=== PATIENT | female | born 1980 | race Caucasian/White ===

== ENCOUNTER 2019-12-09 11:36 | Emergency (ER) | payer BC, SELFPAY ==
[2019-12-09 11:47] VITALS: BP 140/92; PULSE 119; RESP 19; TEMP 37.6; O2SAT 99; BMI 34.0
--- NOTE | 2019-12-09 11:48 | XR_ITS ---
WS: [id number] PORTABLE CHEST HISTORY: cough COMPARISON: None available. Lungs are clear and well expanded. No pleural effusion or pneumothorax. Cardiac size: Normal. Mediastinum/Aorta: Normal mediastinum. No osseous abnormality seen. XR/XR chest 1V portable [id number] IMPRESSION: Unremarkable portable chest.
--- NOTE | 2019-12-09 11:48 | ECG_ITS ---
Measurements Intervals [place] Rate: 110 P: 44 [place]: 132 QRS: 43 QRSD: 94 T: 21 QT: 307 QTc: 417 SINUS TACHYCARDIA NONSPECIFIC T-WAVE ABNORMALITY ABNORMAL RHYTHM ECG No previous ECG available for comparison Electronically Signed On 12-09-2019 19:06:47 CDT by Brandie Boyce M.D. [id number]
[2019-12-09 12:06] LABS: Basophils % 0.6 %; Eosinophils # 0.2 10^3/uL (0.0-0.8); Eosinophils % 3.4 %; Hematocrit 49.2 % (37.0-47.0); Hemoglobin 15.8 g/dL (11.5-15.3); Lymphocytes # 1.8 10^3/uL (0.8-4.8); Lymphocytes % 28.6 %; Mean Corpuscular HGB Conc 32.1 g/dL (30.0-36.0); Mean Corpuscular Hemoglobin 28.6 pg (28.0-34.0); Mean Corpuscular Volume 89.1 fL (81-99); Mean Platelet Volume 9.7 fL (7.4-10.4); Monocytes # 0.3 10^3/uL (0.2-0.9); Neutrophils # 3.8 10^3/uL (1.8-7.7); Neutrophils % 62.1 %; Nucleated Red Blood Cells % 0 %; Platelet Count 253 10^3/cmm (130-400); Red Blood Count 5.52 10^6/uL (4.1-5.3); Red Cell Distribution Width 13.5 % (12.1-15.1); White Blood Count 6.2 10^3/uL (4.0-10.0)
--- NOTE | 2019-12-09 12:06 | ED_ITS ---
HPI - Chest Pain General: Chief Complaint: Chest Pain Stated Complaint: CHEST PRESSURE, LOW BP Time Seen by Provider: 12/09/19 11:47 History of Present Illness: HPI narrative: Emily is a very nice 39-year-old female who comes in complaining of chest pressure. She has had the symptoms off and on for the past several days. In total she states she is been symptomatic for about 2 weeks. At times her heart rate will be elevated at times it will be slower. She describes the pressure as mild and radiates to her left arm. She has associated shortness of breath. She otherwise denies any complaints. She is unaware of anything that makes her symptoms better or worse. Associated symptoms: Reports dyspnea; Deny abdominal pain, diaphoresis, fever(s), palpitations, syncope or vomiting Review of Systems General: Reports: other (negative unless marked) Const: Denies: fever, chills, body aches, fatigue, malaise or diaphoresis Eyes: Denies: change in vision or blurry vision ENMT: Denies: throat pain, painful swallowing, hoarseness, ear pain, ear discharge, Change in hearing or nasal discharge Card: Reports: chest pain; Denies: palpitations, irregular heart rhythm, syncope, pre-syncope, shortness of breath on exertion or shortness of breath when lying down Resp: Reports: shortness of breath; Denies: productive cough, non-productive cough, wheezing, coughing up blood or chest congestion GI: Denies: abdominal pain, vomiting, vomiting blood, coffee grounds in vomit, diarrhea, constipation, cramping, blood in stool or black tarry stool : Denies: flank pain, painful urination, urinary frequency, urinary urgency, decreased urine ouput, urinary incontinence or blood in urine Musc: Denies: neck pain, back pain, extremity pain, extremity swelling, joint pain, joint swelling, joint warmth or joint stiffness Skin/Breast: Denies: rash, skin tenderness or yellow skin Neuro: Denies: headache, numbness in extremities, weakness in extremities, changes in sensation, lack of coordination, difficulty walking, dizziness, vertigo or confusion Endo: Denies: excessive thirst, tired all the time, cold intolerance, excessive sweating, flushing or hot flashes Adryan/Lymph: Denies: easy bruising, easy bleeding, petechiae or enlarged lymph nodes All/Imm: Denies: hives, throat swelling, tongue swelling, facial swelling or acute wheezing PFSH ED PFSH: Medical History (Updated 12/09/19 @ 12:12 by Flaca Baker) Anxiety Depression Surgical History (Updated 12/09/19 @ 12:12 by Flaca Baker) H/O lumpectomy History of cholecystectomy Tubal ligation status Social History Smoking and tobacco status: former smoker Physical Exam Const: COMMON NORMALS: no apparent distress, oriented x3, no limitations, healthy appearing and well nourished EXAM LIMITATIONS: no altered mental status GENERAL APPEARANCE: cooperative, well kempt and well developed ORIENTATION/CONSCIOUSNESS: Yes awake HENMT: COMMON NORMALS: normocephalic, head/scalp atraumatic, hearing grossly normal bilaterally, external ears normal, EAC's normal, external nose normal and moist oral mucous membranes HEAD & SCALP: normal to inspection, normocephalic and atraumatic FACE & SINUS: normal facial exam and face symmetric NOSE: external nose normal and nares normal EXTERNAL EAR: Yes external ears normal EXTERNAL AUDITORY CANAL: EAC's normal MOUTH: oral and palatal mucosa normal and tongue normal Eye: COMMON NORMALS: PERRL, EOMs intact bilaterally, conjunctivae normal and no scleral icterus GENERAL EYE: normal appearance of both eyes and normal light reflex CONJUNCTIVA: Yes conjunctivae normal SCLERA: sclerae normal CORNEA: Yes corneas normal PUPIL: Yes PERRL DIRECT OPHTHALMOSCOPY: Yes normal light reflex Neck/C-Spine: COMMON NORMALS: full ROM, no lymphadenopathy, supple, no meningeal signs and no JVD GENERAL: Yes normal visual inspection and Yes trachea midline CERVICAL SPINE: Yes cervical ROM normal Chest: COMMONS NORMALS: inspection of chest normal and palpation of chest normal Resp: COMMON NORMALS: normal respiratory effort, no retractions, no use of accessory muscles and clear to auscultation bilaterally EFFORT & INSPECTION: Yes able to speak in complete sentences AUSCULTATION: clear to auscultation bilaterally Cardio: COMMON NORMALS: no JVD, regular rate, regular rhythm, S1 normal heart sound, S2 normal heart sound, no gallops, no clicks, no murmurs and no rub JUGULAR VENOUS DISTENTION: no JVD RATE: regular rate RHYTHM: regular rhythm HEART SOUNDS: S1 normal and S2 normal GI: COMMON NORMALS: soft to palpation, non-tender, no hepatosplenomegaly and no masses INSPECTION: Yes normal to inspection PALPATION: Yes soft and Yes no hepatosplenomegaly : COMMON NORMALS: Yes no CVA tenderness BLADDER/KIDNEY EXAM: Yes no CVA tenderness Back/Pelvis: COMMON NORMALS: no CVA tenderness, thoracic and lumbar spine normal to inspection, no thoracic nor lumbar tenderness and thoraco-lumbar ROM normal Extremity: COMMON NORMALS: normal to inspection, full ROM, normal capillary refill, no joint enlargement, no clubbing, cyanosis or edema and no calf tenderness Neuro: COMMON NORMALS: oriented x3, CN's II-XII intact bilaterally, moves all extremities, no focal motor deficits and no sensory deficits noted MENINGEAL SIGNS: Yes no meningeal signs Psych: COMMON NORMALS: mental status grossly normal, thought process normal, cooperative, affect normal, speech normal and activity/motor behavior normal APPEARANCE: Yes well kempt SPEECH: Yes normal speech THOUGHT PROCESS: normal thought process Skin: COMMON NORMALS: no rashes or lesions noted, skin turgor normal, no jaundice, no petechiae and no mottling GENERAL SKIN EXAM: no rashes or lesions noted and turgor normal Course Vital Signs: Vital signs: Vital Signs Temperature 99.7 F H 12/09/19 11:47 Pulse Rate 119 H 12/09/19 11:47 Respiratory Rate 19 H 12/09/19 11:47 Blood Pressure 140/92 12/09/19 11:47 Pulse Oximetry 99 12/09/19 11:47 MDM - Chest Pain MDM Narrative: Medical decision making narrative: Emily is a very nice 39-year-old female who comes in complaining of a pressure-like chest pain in the lower part of her chest. On thorough review the patient has bilateral lower lobe subsegmental pulmonary emboli. Her cardiac enzymes are negative x2, her BNP is normal and her echo shows no right heart strain. She only has mild tachycardia at this point in the 100s but predominantly in the 90s. I discussed the case in full with Dr. Jefferson and he agrees the patient can be discharged to follow-up with him. She will receive a dose of Lovenox here and then start Eliquis tomorrow morning. Her is a branch specialist here who understands what needs to happen with this. He will start the medication 12 hours after her Lovenox dose. Lab Data: Attestation: I reviewed the patient's lab results. Labs: Lab Results 12/09/19 12/09/19 12/09/19 Range/Units 11:58 11:58 11:58 WBC 6.2 (4.0-10.0) 10^3/ uL RBC 5.52 H (4.1-5.3) 10^6/u L Hgb 15.8 H (11.5-15.3) g/dL Hct 49.2 H (37.0-47.0) % MCV 89.1 (81-99) fL MCH 28.6 (28.0-34.0) pg MCHC 32.1 (30.0-36.0) g/dL RDW 13.5 (12.1-15.1) % Plt Count 253 (130-400) 10^3/c mm MPV 9.7 (7.4-10.4) fL Neut % (Auto) 62.1 % Lymph % (Auto) 28.6 % [place] % (Auto) 5.0 % Eos % (Auto) 3.4 % Baso % (Auto) 0.6 % Neut # (Auto) 3.8 (1.8-7.7) 10^3/u L Lymph # (Auto) 1.8 (0.8-4.8) 10^3/u L [place] # (Auto) 0.3 (0.2-0.9) 10^3/u L Eos # (Auto) 0.2 (0.0-0.8) 10^3/u L Baso # (Auto) 0.0 (0.0-0.1) 10^3/u L Nucleated RBC % (a uto) 0 % Nucleated RBCs # 0.0 /100WBC PT 13.00 (10.5-13.3) SECO NDS INR 0.95 (0.8-1.2) D-Dimer 0.52 (0-0.59) ug/mIFE U Sodium 139 (136-145) mmol/L Potassium 3.8 (3.5-5.1) mmol/L Chloride 102 (98-107) mmol/L Carbon Dioxide 24 (22-29) mmol/L Anion Gap 16.8 (5-19) BUN 11 (6-20) mg/dL Creatinine 0.7 (0.5-0.9) mg/dL GFR Calculation 93.6 (90-130) mL/min Glucose 134 H (65-115) mg/dL Calculated Osmolal ity 286 (285-295) mOsm/k g Calcium 9.9 (8.5-10.5) mg/dL Magnesium 2.2 (1.7-2.3) mg/dL Total Bilirubin 0.4 (0.15-1.2) mg/dL AST 20 (0-32) U/L ALT 27 (0-33) U/L Alkaline Phosphata se 31 L (35-105) IU/L Troponin T Baselin e (0-10) ng/mL Troponin T 120 Min [place] (0-10) ng/mL Delta Troponin T (0-10) ABS# NT-Pro-B Natriuret Pep (0-125) pg/mL Total Protein 7.4 (6.6-8.7) g/dL Albumin 4.1 (3.5-5.2) g/dL Globulin 3.3 (1.3-4.6) g/dL Lipase 53 (13-60) U/L TSH (0.27-4.20) uIU/ mL HCG, Qual (Negative) Urine Color (Yellow) Urine Appearance (CLEAR) Urine pH (5-7) Ur Specific Gravit y (1.005-1.030) Urine Protein (Negative) Urine Glucose (UA) (Normal) Urine Ketones (Negative) Urine Blood (Negative) Urine Nitrate (Negative) Urine Bilirubin (NEGATIVE) Urine Urobilinogen (Negative) mg/dL Ur Leukocyte Shala ase (Negative) Urine RBC (0-2) /hpf Urine WBC (0-5) /hpf Ur Squamous Epith Cells (0-5) Amorphous Sediment Urine Bacteria (NONE) Ethyl Alcohol < 10 (0-10) mg/dL 12/09/19 12/09/19 12/09/19 Range/Units 11:58 11:58 11:58 WBC (4.0-10.0) 10^3/ uL RBC (4.1-5.3) 10^6/u L Hgb (11.5-15.3) g/dL Hct (37.0-47.0) % MCV (81-99) fL MCH (28.0-34.0) pg MCHC (30.0-36.0) g/dL RDW (12.1-15.1) % Plt Count (130-400) 10^3/c mm MPV (7.4-10.4) fL Neut % (Auto) % Lymph % (Auto) % [place] % (Auto) % Eos % (Auto) % Baso % (Auto) % Neut # (Auto) (1.8-7.7) 10^3/u L Lymph # (Auto) (0.8-4.8) 10^3/u L [place] # (Auto) (0.2-0.9) 10^3/u L Eos # (Auto) (0.0-0.8) 10^3/u L Baso # (Auto) (0.0-0.1) 10^3/u L Nucleated RBC % (a uto) % Nucleated RBCs # /100WBC PT (10.5-13.3) SECO NDS INR (0.8-1.2) D-Dimer (0-0.59) ug/mIFE U Sodium (136-145) mmol/L Potassium (3.5-5.1) mmol/L Chloride (98-107) mmol/L Carbon Dioxide (22-29) mmol/L Anion Gap (5-19) BUN (6-20) mg/dL Creatinine (0.5-0.9) mg/dL GFR Calculation (90-130) mL/min Glucose (65-115) mg/dL Calculated Osmolal ity (285-295) mOsm/k g Calcium (8.5-10.5) mg/dL Magnesium (1.7-2.3) mg/dL Total Bilirubin (0.15-1.2) mg/dL AST (0-32) U/L ALT (0-33) U/L Alkaline Phosphata se (35-105) IU/L Troponin T Baselin e 6 (0-10) ng/mL Troponin T 120 Min [place] (0-10) ng/mL Delta Troponin T (0-10) ABS# NT-Pro-B Natriuret Pep (0-125) pg/mL Total Protein (6.6-8.7) g/dL Albumin (3.5-5.2) g/dL Globulin (1.3-4.6) g/dL Lipase (13-60) U/L TSH 1.86 (0.27-4.20) uIU/ mL HCG, Qual Negative (Negative) Urine Color (Yellow) Urine Appearance (CLEAR) Urine pH (5-7) Ur Specific Gravit y (1.005-1.030) Urine Protein (Negative) Urine Glucose (UA) (Normal) Urine Ketones (Negative) Urine Blood (Negative) Urine Nitrate (Negative) Urine Bilirubin (NEGATIVE) Urine Urobilinogen (Negative) mg/dL Ur Leukocyte Shala ase (Negative) Urine RBC (0-2) /hpf Urine WBC (0-5) /hpf Ur Squamous Epith Cells (0-5) Amorphous Sediment Urine Bacteria (NONE) Ethyl Alcohol (0-10) mg/dL 12/09/19 12/09/19 12/09/19 Range/Units 13:44 13:46 13:46 WBC (4.0-10.0) 10^3/ uL RBC (4.1-5.3) 10^6/u L Hgb (11.5-15.3) g/dL Hct (37.0-47.0) % MCV (81-99) fL MCH (28.0-34.0) pg MCHC (30.0-36.0) g/dL RDW (12.1-15.1) % Plt Count (130-400) 10^3/c mm MPV (7.4-10.4) fL Neut % (Auto) % Lymph % (Auto) % [place] % (Auto) % Eos % (Auto) % Baso % (Auto) % Neut # (Auto) (1.8-7.7) 10^3/u L Lymph # (Auto) (0.8-4.8) 10^3/u L [place] # (Auto) (0.2-0.9) 10^3/u L Eos # (Auto) (0.0-0.8) 10^3/u L Baso # (Auto) (0.0-0.1) 10^3/u L Nucleated RBC % (a uto) % Nucleated RBCs # /100WBC PT (10.5-13.3) SECO NDS INR (0.8-1.2) D-Dimer (0-0.59) ug/mIFE U Sodium (136-145) mmol/L Potassium (3.5-5.1) mmol/L Chloride (98-107) mmol/L Carbon Dioxide (22-29) mmol/L Anion Gap (5-19) BUN (6-20) mg/dL Creatinine (0.5-0.9) mg/dL GFR Calculation (90-130) mL/min Glucose (65-115) mg/dL Calculated Osmolal ity (285-295) mOsm/k g Calcium (8.5-10.5) mg/dL Magnesium (1.7-2.3) mg/dL Total Bilirubin (0.15-1.2) mg/dL AST (0-32) U/L ALT (0-33) U/L Alkaline Phosphata se (35-105) IU/L Troponin T Baselin e (0-10) ng/mL Troponin T 120 Min [place] 6.00 (0-10) ng/mL Delta Troponin T 0 (0-10) ABS# NT-Pro-B Natriuret Pep 8 (0-125) pg/mL Total Protein (6.6-8.7) g/dL Albumin (3.5-5.2) g/dL Globulin (1.3-4.6) g/dL Lipase (13-60) U/L TSH (0.27-4.20) uIU/ mL HCG, Qual (Negative) Urine Color Yellow (Yellow) Urine Appearance Sl hazy (CLEAR) Urine pH 7 (5-7) Ur Specific Gravit y 1.010 (1.005-1.030) Urine Protein Neg (Negative) Urine Glucose (UA) Norm (Normal) Urine Ketones Negative (Negative) Urine Blood Neg (Negative) Urine Nitrate Negative (Negative) Urine Bilirubin Neg (NEGATIVE) Urine Urobilinogen Norm (Negative) mg/dL Ur Leukocyte Shala ase Negative (Negative) Urine RBC None (0-2) /hpf Urine WBC None (0-5) /hpf Ur Squamous Epith Cells 0-4 H (0-5) Amorphous Sediment 2+ Urine Bacteria Trace (NONE) Ethyl Alcohol (0-10) mg/dL Imaging Data^: CXR: My impression: No acute cardiopulmonary findings. CT Chest: Radiologist's impression: [address] [address] [address] Scan Report Signed Patient: Emily Jauregui Unit #: [id number] : 1980 Age/Sex: 39 / F ADM Date: 12/09/19 Loc: ER Room/Bed: Attending Dr: Ordering Provider/Ordering MD: Flaca Baker DO Date of Service: 12/09/19 Procedure(s): CT angio chest PE protcl [id number] Accession Number(s): [id number] Report Number: [id number] WS: [id number] CT CHEST ANGIOGRAPHY WITH REFORMATS HISTORY: CHEST PAIN/TACHYCARDIA TECHNIQUE: Contiguous axial images are obtained through the chest during arterial injection of intravenous contrast. Images are reconstructed to evaluate the pulmonary arteries. MIP imaging also reviewed. All CT scans at [facility] use at least one of these dose optimization techniques: automated exposure control; mA and/or kV adjustment per patient size (includes targeted exams where dose is matched to clinical indication); or iterative reconstruction. CONTRAST: Omnipaque 350; 95 mL IV. DLP: 608.42 mGy.cm COMPARISON: None available. Adequate but limited opacification of the pulmonary arteries. There are incomplete filling defects in the subsegmental branches of the lower lobes bilaterally. Additional filling defect in the RIGHT lower lobe proximal pulmonary artery. Opacification of the upper lobes is limited. There are probably a few additional small defects also. Lungs are clear. No pneumonia or pulmonary infarct. No pericardial pleural effusion. Mild enlargement of the LEFT heart chambers. No RIGHT heart strain. No mediastinal or hilar adenopathy. Mild hepatic steatosis. No osteoblastic or osteolytic bone disease. Notified Flaca Baker at 12/09/2019 2:[address]/CT angio chest PE protcl [id number] IMPRESSION: 1. Small, incomplete bilateral lower lobe pulmonary arterial emboli. 2. Mild LEFT heart enlargement. 3. No pneumonia or pulmonary infarct. 4. Mild hepatic steatosis. Dictated By: Erin Patiño DO Signed By: Erin Patiño DO Signed Date/Time: 12/09/19 1436 DD/ 1427 Echo: Radiologist's impression: Please see full formal report. No evidence of any heart strain. EKG Data^: EKG 1: Attestation: I personally reviewed and interpreted this EKG as follows: EKG interpretation date: 12/09/19 EKG interpretation time: 11:57 Interpretation: Normal sinus rhythm at 110 beats a minute, no acute ST or T wave changes, normal axis, no blocks, normal intervals. EKG 2: Attestation: I personally reviewed and interpreted this EKG as follows: EKG interpretation date: 12/09/19 EKG interpretation time: 15:31 Interpretation: Normal sinus rhythm at 103 beats a minute, no acute ST or T wave changes. Discharge Plan Discharge Prescriptions: No Action Tylenol Extra Strength 500 mg Tablet 500 - 1,000 mg PO PRN RF: 0 venlafaxine 37.5 mg tablet 37.5 mg PO DAILY RF: 0 Aleve 220 mg Tablet 220 mg PO PRN RF: 0 hydroxyzine HCl 25 mg tablet 25 mg PO QID PRN (Reason: uknown) RF: 0 Coding Level of Care Code ED Manager Engine for Chg Fwd Exam Comprehensive
[2019-12-09] MEDS: sodium chloride 0.9% 500 ML 999 ML IV (12:16)
[2019-12-09 12:17] LABS: INR 0.95 (0.8-1.2)
[2019-12-09] MEDS: aspirin 81 mg Chew Tablet 324 MG PO (12:18)
[2019-12-09 12:20] LABS: D Dimer 0.52 ug/mIFEU (0-0.59)
[2019-12-09 12:24] LABS: HCG, Serum Qual Negative (Negative)
[2019-12-09 12:33] LABS: Alanine Aminotransferase 27 U/L (0-33); Albumin Level 4.1 g/dL (3.5-5.2); Alkaline Phosphatase 31 IU/L (35-105); Anion Gap 16.8 (5-19); Aspartate Amino Transferase 20 U/L (0-32); Blood Urea Nitrogen 11 mg/dL (6-20); Calcium 9.9 mg/dL (8.5-10.5); Carbon Dioxide 24 mmol/L (22-29); Chloride 102 mmol/L (98-107); Globulin 3.3 g/dL (1.3-4.6); Glomerular Filtration Rate 93.6 mL/min (90-130); Glucose 134 mg/dL (65-115); Lipase 53 U/L (13-60); Magnesium 2.2 mg/dL (1.7-2.3); Osmolality Calculated 286 mOsm/kg (285-295); Potassium 3.8 mmol/L (3.5-5.1); Sodium 139 mmol/L (136-145); Total Bilirubin 0.4 mg/dL (0.15-1.2); Total Protein 7.4 g/dL (6.6-8.7)
[2019-12-09 12:34] LABS: Troponin(5th) Baseline 6 ng/mL (0-10)
[2019-12-09 12:35] LABS: Alcohol Level < 10 mg/dL (0-10)
[2019-12-09] MEDS: LORazepam 2 mg/mL INJ 1 mL 0.5 MG IVP ×2 (12:38→13:10)
[2019-12-09] MEDS: ketorolac 30 mg/mL INJ 15 MG IVP (13:10)
[2019-12-09] MEDS: sodium chloride 0.9% 1,000 ML 999 ML IV ×2 (13:11→15:54)
[2019-12-09 13:15] LABS: Thyroid Stimulating Hormone 1.86 uIU/mL (0.27-4.20)
--- NOTE | 2019-12-09 13:24 | CT_ITS ---
WS: [id number] CT CHEST ANGIOGRAPHY WITH REFORMATS HISTORY: CHEST PAIN/TACHYCARDIA TECHNIQUE: Contiguous axial images are obtained through the chest during arterial injection of intrav enous contrast. Images are reconstructed to evaluate the pulmonary arteries. MIP imaging also reviewe d. All CT scans at [facility] use at least one of these dose optimization techniques: aut omated exposure control; mA and/or kV adjustment per patient size (includes targeted exams where dose is matched to clinical indication); or iterative reconstruction. CONTRAST: Omnipaque 350; 95 mL IV. DLP: 608.42 mGy.cm COMPARISON: None available. Adequate but limited opacification of the pulmonary arteries. There are incomplete filling defects in the subsegmental branches of the lower lobes bilaterally. Additional filling defect in the RIGHT low er lobe proximal pulmonary artery. Opacification of the upper lobes is limited. There are probably a few additional small defects also. Lungs are clear. No pneumonia or pulmonary infarct. No pericardial pleural effusion. Mild enlargement of the LEFT heart chambers. No RIGHT heart strain. No mediastinal or hilar adenopathy. Mild hepatic steatosis. No osteoblastic or osteolytic bone disease. Notified Flaca Baker at 12/09/2019 2:[address]/CT angio chest PE protcl [id number] IMPRESSION: 1. Small, incomplete bilateral lower lobe pulmonary arterial emboli. 2. Mild LEFT heart enlargement. 3. No pneumonia or pulmonary infarct. 4. Mild hepatic steatosis.
--- NOTE | 2019-12-09 13:48 | ECG_ITS ---
Measurements Intervals [place] Rate: 103 P: 28 FL: 110 QRS: 46 QRSD: 102 T: 45 QT: 327 QTc: 428 SINUS TACHYCARDIA WITH SHORT [place] INTERVAL ABNORMAL RHYTHM ECG No previous ECG available for comparison Electronically Signed On 12-09-2019 19:09:17 CDT by Brandie Boyce M.D. [id number]
[2019-12-09] MEDS: iohexol 350 mg/mL 100 mL Btl IV (14:14)
--- NOTE | 2019-12-09 14:18 | PC.NURSE ---
patient returned from ct, tolerated well
[2019-12-09 14:29] LABS: Troponin 5 2HR Delta 0 ABS# (0-10)
[2019-12-09 14:31] LABS: Urine Appearance SL Hazy (CLEAR); Urine Color Yellow (Yellow); pH Urine 7 (5-7)
[2019-12-09 14:32] LABS: Add Urine Culture? No; Amorphous Sediment Urine 2+; Bacteria Urine TRACE; Bilirubin Urine Neg (NEGATIVE); Blood Urine Neg (Negative); Glucose Urine UA Norm (Normal); Ketones Urine Negative (Negative); Leukocyte Esterase Urine Negative (Negative); Nitrate Urine Negative (Negative); Protein Urine Neg (Negative); Squamous Epithelial Cell Urine 0-4 (0-5); Urobilinogen Urine Norm (Negative)
--- NOTE | 2019-12-09 14:36 | USCV_ITS ---
Emily Jauregui Age: 39 Gender: F : 1980 Exam Date: 12/09/2019 15:02 Ordering Phys: Flaca Baker DO Technologist: Toya Kiser Exam Location: [facility] [place] Indication: PE BP: / HR: 111 Rhythm: Sinus Technical Quality: Adequate MEASUREMENTS (Male / Female) Normal Values 2D ECHO LV Diastolic Diameter PLAX 4.4 cm 4.2 - 5.9 / 3.9 - 5.3 cm LV Systolic Diameter PLAX 3.2 cm LV Chamber Size 3.3 cm IVS Diastolic Thickness 1.4 cm 0.6 - 1.0 / 0.6 - 0.9 cm IVS Systolic Thickness 1.5 cm LVPW Diastolic Thickness 1.2 cm 0.6 - 1.0 / 0.6 - 0.9 cm LVPW Systolic Thickness 1.1 cm RV Chamber Size 2.1 cm LVOT Diameter 2.0 cm LV Ejection Fraction 2D Teich 54.0 % LV Ejection Fraction MOD 2C 69.3 % LV Ejection Fraction 2C AL 69.4 % LA Diameter 3.5 cm LA Width 3.4 cm LA Height 4.7 cm RA Width 2.8 cm RA Height 4.1 cm Aorta at Sinotubular Diameter 3.2 cm M-MODE LV Diastolic Diameter MM 4.7 cm 4.2 - 5.9 / 3.9 - 5.3 cm LV Systolic Diameter MM 3.5 cm LV Ejection Fraction MM Teich 51.4 % IVS Diastolic Thickness MM 0.9 cm 0.6 - 1.0 / 0.6 - 0.9 cm IVS Systolic Thickness MM 1.3 cm LVPW Diastolic Thickness MM 1.1 cm 0.6 - 1.0 / 0.6 - 0.9 cm LVPW Systolic Thickness MM 1.6 cm RV Diastolic Diameter MM 0.6 cm Aortic Annulus Diameter 2.9 cm LA Ao Ratio MM 1.2 MV E Point Septal Separation 1.0 cm DOPPLER AV Peak Velocity 128.0 cm/s LVOT Peak Velocity 66.0 cm/s AV Area Cont Eq vti 2.4 cm squared AV Area Cont Eq pk 1.7 cm squared MV Area PHT 5.0 cm squared Mitral E to A Ratio 0.9 MV E' Velocity 56.0 cm/s TR Peak Velocity 167.9 cm/s TR Peak Gradient 11.3 mmHg TR Mean Velocity 107.1 cm/s TR Mean Gradient 5.7 mmHg TR Velocity Time Integral 29.0 cm TV Peak E Velocity 76.0 cm/s Right Atrial Pressure 3.0 mmHg Pulmonary Artery Systolic Pressu 14.3 mmHg PV Peak Velocity 72.0 cm/s RV Acceleration Time 0.2 s RV Ejection Time 0.3 s RV AcT/ET 0.5 FINDINGS Left Ventricle Normal left ventricular size, systolic function and wall thickness, with no regional wall motion abnormalities. Left ventricular ejection fraction is estimated at 71%. Right Ventricle Normal right ventricular size and systolic function. Right ventricular systolic pressure 14.3 mmHg. Right Atrium Normal right atrial size. Right atrial pressure estimated at 3 mmHg. Left Atrium Normal left atrial size. Mitral Valve Mildly thickened mitral valve. No mitral valve stenosis. No mitral valve regurgitation. Aortic Valve Structurally normal trileaflet aortic valve. No aortic valve stenosis. No aortic valve regurgitation. Tricuspid Valve Structurally normal tricuspid valve. Trace tricuspid valve regurgitation. Pulmonic Valve Pulmonic valve not well visualized. Trace pulmonary valve regurgitation. Normal-sized pulmonary artery. Pericardium No pericardial effusion. Normal-sized inferior vena cava. Aorta Normal-sized aortic root. CONCLUSIONS 1. Normal left ventricular size, systolic function and wall thickness, with no regional wall motion abnormalities. Left ventricular ejection fraction is estimated at 71%. 2. Normal right ventricular size and systolic function. 3. Right atrial pressure estimated at 3 mmHg. 4. Normal pulmonary artery pressure. 5. No prior similar studies to compare. Sarah Mcdonnell MD (Electronically Signed) Final Date: 09 December 2019 15:36 S
[2019-12-09 15:38] LABS: NT Pro B Type Natriuretic Pept 8 pg/mL (0-125)
[2019-12-09] MEDS: enoxaparin 80 mg/0.8 mL Syringe 84 MG SUBCUT (15:59)
[2019-12-09 16:56] VITALS: BP 116/80; PULSE 108; RESP 20; O2SAT 98
--- NOTE | 2019-12-10 11:46 | DCPLANNER ---
craft manager had message to schedule a follow up appointment for patient with [facility]. craft manager called [facility], spoke with [place], a follow up appointment is scheduled for Sunday, December 15, 2019 at 11:[address] Jefferson. Clinic will call patient with appointment information.
--- NOTE | 2020-01-07 15:49 | DCPLANNER ---
Patient did attend appointment scheduled for 12.14.19 with [facility].
== END 2019-12-09 16:58 | disposition home or self-care (01) ==
PROVIDERS: Emergency Provider Emergency Medicine; Family Provider Family Medicine; PCP Family Medicine
DX: I26.94 Multiple subsegmental thrombotic pulmonary emboli without acute cor pulmonale (principal); Z87.891 Personal history of nicotine dependence; F41.9 Anxiety disorder, unspecified; F32.9 Major depressive disorder, single episode, unspecified; R00.0 Tachycardia, unspecified
CPT/HCPCS: 12345; 36415; 71045; 71275; 80053; 80307; 81001; 83690; 83735; 83880; 84443; 84484; 84703; 85025; 85378; 85610; 93005; 93306; 96361; 96372; 96374; 96375; 99282; 99284; A9270; J1650; J1885; J2060; J7030; J7040; Q9967

== ENCOUNTER 2019-12-22 15:25 | Outpatient (CLI) | payer BC, SELFPAY ==
[2019-12-22 17:19] LABS: Homocysteine 7.89
[2019-12-23 11:51] LABS: CENTROMERE B ANTIBODY <1.0 NEG AI (<1.0 NEG); JO-1 ANTIBODY <1.0 NEG AI (<1.0 NEG); RNP ANTIBODY <1.0 NEG AI (<1.0 NEG); SCL-70 ANTIBODY <1.0 NEG AI (<1.0 NEG); SJOGREN'S ANTIBODY (SS-A) <1.0 NEG AI (<1.0 NEG); SM ANTIBODY <1.0 NEG AI (<1.0 NEG)
[2019-12-23 12:21] LABS: COMPLEMENT, TOTAL (CH50) >60 U/mL (31-60)
[2019-12-23 12:47] LABS: COMPLEMENT COMPONENT C3C 164 mg/dL (83-193); COMPLEMENT COMPONENT C4C 24 mg/dL (15-57)
[2019-12-23 14:36] LABS: THYROID PEROXIDASE ANTIBODIES 1 IU/mL (<9)
[2019-12-23 16:02] LABS: ANA PATTERN Nuclear, Speckled; ANA SCREEN, IFA POSITIVE (NEGATIVE)
[2019-12-26 00:11] LABS: DNA AB (DS) CRITHIDIA,IFA NEGATIVE (NEGATIVE)
== END 2019-12-22 15:26 | disposition home or self-care (01) ==
LOC: LAB 15:29
PROVIDERS: Family Provider Family Medicine; PCP Internal Medicine; Visit Provider Internal Medicine Critical Care Medicine
DX: I26.99 Other pulmonary embolism without acute cor pulmonale (principal)
CPT/HCPCS: 81241; 83090

== ENCOUNTER 2019-12-29 15:32 | Outpatient (CLI) | payer BC, SELFPAY ==
[2020-01-02 03:42] LABS: Beta 2 Glycoprotein IGA <9 SAU (<=20); Beta 2 Glycoprotein IGG <9 SGU (<=20); Beta 2 Glycoprotein IGM <9 SMU (<=20)
[2020-01-04 08:23] LABS: Antithrombin III Activity SEE COMMENTS
== END 2019-12-29 15:33 | disposition home or self-care (01) ==
LOC: LAB 15:34
PROVIDERS: Family Provider Family Medicine; PCP Internal Medicine; Visit Provider Internal Medicine Critical Care Medicine
DX: I26.99 Other pulmonary embolism without acute cor pulmonale (principal)
CPT/HCPCS: 36415; 85300; 86146

== ENCOUNTER → 2020-04-06 14:00 | Outpatient (BNVA) | payer BC, SELFPAY | PROVIDERS: Family Provider Family Medicine; PCP Internal Medicine; Visit Provider Internal Medicine Rheumatology | DX: R76.8 Other specified abnormal immunological findings in serum (principal); Z79.899 Other long term (current) drug therapy; Z11.59 Encounter for screening for other viral diseases; Z11.1 Encounter for screening for respiratory tuberculosis; I26.99 Other pulmonary embolism without acute cor pulmonale; M25.50 Pain in unspecified joint; Z87.891 Personal history of nicotine dependence; Z79.01 Long term (current) use of anticoagulants | CPT/HCPCS: 36415; 80076; 81001; 82565; 82570; 84156; 85025; 85613; 85651; 85730; 86140; 86146; 86147; 86431; 86480; 86704; 86803; 87340; 99204 ==

== ENCOUNTER → 2020-07-07 09:51 | Outpatient (BNVA) | payer BC, SELFPAY | PROVIDERS: Family Provider Family Medicine; PCP Internal Medicine; Visit Provider Internal Medicine Rheumatology | DX: M19.90 Unspecified osteoarthritis, unspecified site (principal); R76.8 Other specified abnormal immunological findings in serum; Z79.899 Other long term (current) drug therapy; I26.99 Other pulmonary embolism without acute cor pulmonale; M35.9 Systemic involvement of connective tissue, unspecified | CPT/HCPCS: 99214 ==

== ENCOUNTER → 2020-08-23 09:49 | Outpatient (BNVA) | payer BC, SELFPAY | PROVIDERS: Family Provider Family Medicine; PCP Internal Medicine; Visit Provider Internal Medicine Rheumatology | DX: M19.90 Unspecified osteoarthritis, unspecified site (principal); Z79.899 Other long term (current) drug therapy | CPT/HCPCS: 36415 ==

== ENCOUNTER 2020-08-23 10:00 | Outpatient (CLI) | payer BC, SELFPAY | END 2020-08-23 10:01 | disposition home or self-care (01) | LOC: LAB 05-19 13:28 | PROVIDERS: PCP Internal Medicine; Visit Provider Internal Medicine Rheumatology | DX: M19.90 Unspecified osteoarthritis, unspecified site (principal); Z79.899 Other long term (current) drug therapy | CPT/HCPCS: 80076; 82565; 85025; 85651; 86140 ==

== ENCOUNTER 2020-11-15 10:58 | Outpatient (CLI) | payer BC, SELFPAY ==
[2020-11-15 13:02] LABS: Basophils # 0.1 10^3/uL (0.0-0.1); Basophils % 1.1 %; Eosinophils # 0.3 10^3/uL (0.0-0.8); Eosinophils % 4.4 %; Hematocrit 43.1 % (37.0-47.0); Hemoglobin 14.4 g/dL (11.5-15.3); Lymphocytes # 1.7 10^3/uL (0.8-4.8); Lymphocytes % 30.5 %; Mean Corpuscular HGB Conc 33.4 g/dL (30.0-36.0); Mean Corpuscular Hemoglobin 29.6 pg (28.0-34.0); Mean Corpuscular Volume 88.7 fL (81-99); Mean Platelet Volume 10.5 fL (7.4-10.4); Monocytes # 0.5 10^3/uL (0.2-0.9); Monocytes % 9.1 %; Neutrophils % 54.4 %; Nucleated Red Blood Cells % 0 %; Platelet Count 259 10^3/cmm (130-400); Red Blood Count 4.86 10^6/uL (4.1-5.3); Red Cell Distribution Width 13.4 % (12.1-15.1); White Blood Count 5.7 10^3/uL (4.0-10.0)
[2020-11-22 14:00] LABS: Alanine Aminotransferase 37 U/L (0-33); Albumin Level 4.1 g/dL (3.5-5.2); Alkaline Phosphatase 35 IU/L (35-105); Aspartate Amino Transferase 19 U/L (0-32); Globulin 2.8 g/dL (1.3-4.6); Glomerular Filtration Rate 93.2 mL/min (90-130); Total Bilirubin 0.2 mg/dL (0.15-1.2); Total Protein 6.9 g/dL (6.6-8.7)
== END 2020-11-15 11:59 | disposition home or self-care (01) ==
PROVIDERS: PCP Internal Medicine; Visit Provider Internal Medicine Rheumatology
DX: M19.90 Unspecified osteoarthritis, unspecified site (principal); M25.50 Pain in unspecified joint; M35.9 Systemic involvement of connective tissue, unspecified; R76.8 Other specified abnormal immunological findings in serum; Z79.899 Other long term (current) drug therapy
CPT/HCPCS: 36415; 80076; 82565; 85025; 86140

== ENCOUNTER → 2020-11-22 10:44 | Outpatient (BNVA) | payer BC, SELFPAY | PROVIDERS: PCP Internal Medicine; Visit Provider Internal Medicine Rheumatology | DX: R76.8 Other specified abnormal immunological findings in serum (principal); M19.90 Unspecified osteoarthritis, unspecified site; Z79.899 Other long term (current) drug therapy; M35.9 Systemic involvement of connective tissue, unspecified; Z87.891 Personal history of nicotine dependence | CPT/HCPCS: 36415; 80076; 82565; 86140; 99214 ==

== ENCOUNTER → 2021-02-21 09:39 | Outpatient (BNVA) | payer BC, SELFPAY | PROVIDERS: PCP Internal Medicine; Visit Provider Internal Medicine Rheumatology | DX: R76.8 Other specified abnormal immunological findings in serum (principal); M19.90 Unspecified osteoarthritis, unspecified site; M35.9 Systemic involvement of connective tissue, unspecified; Z79.899 Other long term (current) drug therapy; Z87.891 Personal history of nicotine dependence | CPT/HCPCS: 99214 ==

== ENCOUNTER → 2021-06-21 13:03 | Outpatient (BNVA) | payer BC, SELFPAY | PROVIDERS: PCP Internal Medicine; Visit Provider Internal Medicine Rheumatology | DX: M19.90 Unspecified osteoarthritis, unspecified site (principal); Z79.899 Other long term (current) drug therapy; Z71.89 Other specified counseling | CPT/HCPCS: 36415; 80076; 82565; 85025; 86140 ==

== ENCOUNTER → 2021-07-18 15:06 | Outpatient (BNVA) | payer BC, SELFPAY | PROVIDERS: PCP Internal Medicine; Visit Provider Internal Medicine Rheumatology | DX: R76.8 Other specified abnormal immunological findings in serum (principal); M19.90 Unspecified osteoarthritis, unspecified site; M35.9 Systemic involvement of connective tissue, unspecified; Z79.899 Other long term (current) drug therapy; Z86.711 Personal history of pulmonary embolism; Z79.01 Long term (current) use of anticoagulants; Z71.89 Other specified counseling; Z87.891 Personal history of nicotine dependence | CPT/HCPCS: 99214 ==

== ENCOUNTER 2021-07-21 13:43 | Outpatient (CLI) | payer BC, SELFPAY ==
[2021-07-21 14:11] LABS: Basophils % 0.5 %; Eosinophils # 0.2 10^3/uL (0.0-0.8); Eosinophils % 3.2 %; Hematocrit 44.9 % (37.0-47.0); Hemoglobin 15.2 g/dL (11.5-15.3); Lymphocytes # 1.7 10^3/uL (0.8-4.8); Lymphocytes % 22.8 %; Mean Corpuscular HGB Conc 33.9 g/dL (30.0-36.0); Mean Corpuscular Hemoglobin 29.8 pg (28.0-34.0); Mean Platelet Volume 9.6 fL (7.4-10.4); Monocytes # 0.7 10^3/uL (0.2-0.9); Monocytes % 8.8 %; Neutrophils # 4.75 10^3/uL (1.8-7.7); Neutrophils % 64.3 %; Nucleated Red Blood Cells % 0 %; Platelet Count 273 10^3/cmm (130-400); Red Cell Distribution Width 13.3 % (12.1-15.1); White Blood Count 7.4 10^3/uL (4.0-10.0)
[2021-07-21 14:42] LABS: Alanine Aminotransferase 58 U/L (0-33); Albumin Level 3.9 g/dL (3.5-5.2); Alkaline Phosphatase 49 IU/L (35-105); Aspartate Amino Transferase 34 U/L (0-32); C Reactive Protein 8.9 mg/L (0.0-4.9); Globulin 2.9 g/dL (1.3-4.6); Glomerular Filtration Rate 92.7 mL/min (90-130); Total Bilirubin 0.4 mg/dL (0.15-1.2); Total Protein 6.8 g/dL (6.6-8.7)
[2021-07-24 12:18] LABS: Erythrocyte Sedimentation Rate 9 mm/hr (0-15)
== END 2021-07-21 13:44 | disposition home or self-care (01) ==
PROVIDERS: PCP Internal Medicine; Visit Provider Internal Medicine Rheumatology
DX: Z79.899 Other long term (current) drug therapy (principal); M19.90 Unspecified osteoarthritis, unspecified site; M35.9 Systemic involvement of connective tissue, unspecified; Z71.89 Other specified counseling
CPT/HCPCS: 36415; 80076; 82565; 85025; 85651; 86140

== ENCOUNTER 2021-10-26 10:42 | Outpatient (CLI) | payer BC, SELFPAY ==
[2021-10-26 11:40] LABS: Basophils % 0.6 %; Eosinophils # 0.2 10^3/uL (0.0-0.8); Eosinophils % 3.4 %; Hematocrit 45.1 % (37.0-47.0); Lymphocytes # 2.1 10^3/uL (0.8-4.8); Lymphocytes % 33.4 %; Mean Corpuscular HGB Conc 33.3 g/dL (30.0-36.0); Mean Corpuscular Hemoglobin 28.5 pg (28.0-34.0); Mean Corpuscular Volume 85.7 fl (81-99); Mean Platelet Volume 9.6 fL (7.4-10.4); Monocytes # 0.6 10^3/uL (0.2-0.9); Monocytes % 9.2 %; Neutrophils # 3.39 10^3/uL (1.8-7.7); Neutrophils % 53.1 %; Nucleated Red Blood Cells % 0 %; Platelet Count 242 10^3/cmm (130-400); Red Blood Count 5.26 10^6/uL (4.1-5.3); Red Cell Distribution Width 13.9 % (12.1-15.1); White Blood Count 6.4 10^3/uL (4.0-10.0)
[2021-10-26 12:11] LABS: Alanine Aminotransferase 56 U/L (0-33); Albumin Level 4.2 g/dL (3.5-5.2); Alkaline Phosphatase 39 IU/L (35-105); C Reactive Protein 6.9 mg/L (0.0-4.9); Globulin 3.1 g/dL (1.3-4.6); Glomerular Filtration Rate 136.6 mL/min (90-130); Total Bilirubin 0.3 mg/dL (0.15-1.2); Total Protein 7.3 g/dL (6.6-8.7)
[2021-10-26 12:12] LABS: Aspartate Amino Transferase 36 U/L (0-32)
== END 2021-10-26 10:43 | disposition home or self-care (01) ==
LOC: LAB 10:50
PROVIDERS: PCP Internal Medicine; Visit Provider Internal Medicine Rheumatology
DX: M35.9 Systemic involvement of connective tissue, unspecified (principal); Z79.899 Other long term (current) drug therapy
CPT/HCPCS: 80076; 82565; 85025; 86140

== ENCOUNTER 2022-01-02 12:56 | Emergency (ER) | payer BC, SELFPAY ==
[2022-01-02 13:03] VITALS: BP 154/101; PULSE 120; RESP 20; TEMP 37.2; O2SAT 98
--- NOTE | 2022-01-02 13:57 | ECG_ITS ---
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 Measurements Intervals [place] Rate: 111 P: 52 PA: 141 QRS: 28 QRSD: 85 T: 28 QT: 311 QTc: 424 Interpretive Statements SINUS TACHYCARDIA Compared to ECG 12/09/2019 15:31:37 Short PA interval no longer present Electronically Signed On 01-02-2022 17:24:52 CDT by Redd Cartwright M.D. [id number]
--- NOTE | 2022-01-02 14:09 | ED_ITS ---
HPI - Abdominal Pain General: Chief Complaint: Abdominal Pain Stated Complaint: Left lower Abd Pain, Pressure on chest Time Seen by Provider: 01/02/22 13:51 Source: patient Mode of arrival: ambulatory Limitations: no limitations History of Present Illness: 41-year-old female presents emergency room with complaint of left lower quadrant abdominal pain for last 3 days moving into the left upper quadrant. 4 days ago she had a little pressure in her chest that is been intermittent. She is tachycardic but she has not been particularly short of breath she is not hypoxic on arrival here she not had any hematochezia melena hematemesis or coffee-ground emesis no dysuria urgency or frequency no flank pa in. She is exquisitely tender even to light palpation in the left lower quadrant there is no evidence of rash. She was previously on anticoagulation for pulmonary emboli that were discovered after an episode of pneumonia and she has not had any recurrence. She not currently taking any anticoagulation. MD elicited complaint: abdominal pain Pertinent past history: other (Previous PEs) Onset (ago): day(s) (3) Pain Consistency: constant Location: LLQ Severity: moderate Quality: cramping Radiation: LUQ and L flank Exacerbating factors: other (Palpation) Relieving factors: nothing Associated Symptoms: Denies anorexia, belching, bloating, change in bowel habits, change in stool character, chills, coffee ground emesis, constipation, GI cramping, diarrhea, dyspepsia, dysuria, excessive flatus, fever(s), heartburn, hematochezia, hematuria, hematemesis, fecal incontinence, loose stools, melena, nausea, poor appetite, syncope and vomiting Related Data: Date of Last Menstrual Period: 11/28/21 Review of Systems Const: Denies: fever(s) or chills ENMT: Denies: throat pain, ear or mastoid pain, nasal discharge or nasal congestion Card: Denies: syncope Resp: Denies: dyspnea, productive cough or non-productive cough GI: Denies: nausea, vomiting, hematemesis, coffee ground emesis, heartburn, diarrhea, constipation, bloating, GI cramping, belching, excessive flatus, fecal incontinence, change in bowel habits, change in stool character, hematochezia or melena : Denies: dysuria or hematuria Skin/Breast: Denies: rash or pruritus PFSH ED PFSH: Medical History Anxiety Depression High risk medication use Immunization counseling Inflammatory arthritis Joint pain Positive ARDEN (antinuclear antibody) Pulmonary embolism Undifferentiated connective tissue disease Surgical History H/O lumpectomy History of cholecystectomy Tubal ligation status Family History Other CAD (coronary artery disease) Cancer Hyperlipidemia Hypertension Denies family history of Rheumatoid arthritis Diabetes Lupus Lung disease Stroke Social History Smoking and tobacco status: never smoked Quit status (tobacco): has quit using tobacco Year quit tobacco: 2019 PPD x 5 Years Second hand smoke exposure: Yes Smoking risk assessment/counseling performed?: No Alcohol intake: never Desire information about alcohol rehabilitation?: No Counseling given: No Desire information about substance/drug rehabilitation?: No Counseling given: No Lives independently: Yes Household members: spouse Marital status: Current occupational status: unemployed History of recent travel: No Current gender identity: Female Female Reproductive History: Date of last menstrual period: 11/28/21 Physical Exam Const: GENERAL APPEARANCE: cooperative and comfortable ORIENTATION/CONSCIOUSNESS: Yes awake, Yes oriented to person, Yes oriented to place and Yes oriented to time HENMT: COMMON NORMALS: normocephalic, atraumatic, hearing grossly normal bilaterally, external ears normal, EAC's normal, TM's normal bilaterally and Normal nasal mucous membranes and turbinates present HEAD & SCALP: normocephalic and atraumatic NOSE: Normal nasal mucous membranes and turbinates present EXTERNAL EAR: Yes external ears normal EXTERNAL AUDITORY CANAL: EAC's normal TYMPANIC MEMBRANE: TM's normal bilaterally Eye: COMMON NORMALS: Equal, round and reactive pupils present, EOMs intact bilaterally, conjunctivae normal and no scleral icterus CONJUNCTIVA: Yes conjunctivae normal PUPIL: Yes Equal, round and reactive pupils present Lymph: LYMPHATIC: no lymphadenopathy noted and no lymphedema noted Resp: COMMON NORMALS: normal respiratory effort, No retractions, No use of accessory muscles and clear to auscultation bilaterally AUSCULTATION: clear to auscultation bilaterally Cardio: COMMON NORMALS: regular rate, regular rhythm and No murmurs present (Cardio) RATE: regular rate RHYTHM: regular rhythm GI: COMMON NORMALS: No hepatosplenomegaly present AUSCULTATION: Yes normoactive bowel sounds PALPATION: Yes Tenderness to palpation present (GI) Details: LLQ, No Guarding due to palpation present (GI) and Yes No hepatosplenomegaly present Extremity: COMMON NORMALS: normal to inspection, capillary refill normal, no clubbing, cyanosis or edema, no calf tenderness and no pedal edema Neuro: SENSORIUM/ORIENTATION: Yes oriented to person, Yes oriented to place and Yes oriented to time Skin: COMMON NORMALS: no rashes or lesions noted GENERAL SKIN EXAM: no rashes or lesions noted Course Vital Signs: Vital signs: Vital Signs Temperature 99.0 F 01/02/22 14:50 Pulse Rate 106 H 01/02/22 17:20 Respiratory Rate 17 01/02/22 15:00 Blood Pressure 144/99 01/02/22 17:20 Pulse Oximetry 95 01/02/22 17:20 MDM - Abdominal Pain Medical Decision Making Acute diverticulitis start Cipro and Flagyl anti-inflammatories pain medications follow-up with primary care to schedule colonoscopy later today return if has further problems. Medical Records I reviewed the patient's medical records. Lab Data I reviewed the patient's lab results. : 01/02/22 14:48 01/02/22 14:48 Labs/Radiology: Radiology Impressions Chest/Abdomen/Pelvis CTA 01/02/22 15:02 IMPRESSION: 1. Long segment acute diverticulitis involving the descending colon. No absc ess. 2. Normal thoracic, abdominal and pelvic aortas. 3. Prior cholecystectomy. 4. Hepatic steatosis. 5. Additional distal sigmoid diverticulosis without acute diverticulitis. Laboratory Results WBC 10.4 10^3/uL (4.0-10.0) H 01/02/22 14:48 RBC 5.37 10^6/uL (4.1-5.3) H 01/02/22 14:48 Hgb 15.5 g/dL (11.5-15.3) H 01/02/22 14:48 Hct 46.2 % (37.0-47.0) 01/02/22 14:48 MCV 86.0 fl (81-99) 01/02/22 14:48 MCH 28.9 pg (28.0-34.0) 01/02/22 14:48 MCHC 33.5 g/dL (30.0-36.0) 01/02/22 14:48 RDW 14.0 % (12.1-15.1) 01/02/22 14:48 Plt Count 240 10^3/cmm (130-400) 01/02/22 14:48 MPV 9.8 fL (7.4-10.4) 01/02/22 14:48 Neut % (Auto) 75.7 % 01/02/22 14:48 Lymph % (Auto) 14.1 % 01/02/22 14:48 Gillespie % (Auto) 8.0 % 01/02/22 14:48 Eos % (Auto) 1.4 % 01/02/22 14:48 Baso % (Auto) 0.4 % 01/02/22 14:48 Neut # (Auto) 7.90 10^3/uL (1.8-7.7) H 01/02/22 14:48 Lymph # (Auto) 1.5 10^3/uL (0.8-4.8) 01/02/22 14:48 Gillespie # (Auto) 0.8 10^3/uL (0.2-0.9) 01/02/22 14:48 Eos # (Auto) 0.2 10^3/uL (0.0-0.8) 01/02/22 14:48 Baso # (Auto) 0.0 10^3/uL (0.0-0.1) 01/02/22 14:48 Nucleated RBC % (auto) 0 % 01/02/22 14:48 Nucleated RBCs # 0.0 /100WBC 01/02/22 14:48 Sodium 137 mmol/L (136-145) 01/02/22 14:48 Potassium 3.9 mmol/L (3.5-5.1) 01/02/22 14:48 Chloride 101 mmol/L (98-107) 01/02/22 14:48 Carbon Dioxide 25 mmol/L (22-29) 01/02/22 14:48 Anion Gap 14.9 (5-19) 01/02/22 14:48 BUN 6 mg/dL (6-20) 01/02/22 14:48 Creatinine 0.5 mg/dL (0.5-0.9) 01/02/22 14:48 GFR Calculation 136.6 mL/min (90-130) H 01/02/22 14:48 Glucose 102 mg/dL (65-115) 01/02/22 14:48 Calculated Osmolality 282 mOsm/kg (285-295) L 01/02/22 14:48 Calcium 9.5 mg/dL (8.5-10.5) 01/02/22 14:48 Total Bilirubin 0.4 mg/dL (0.15-1.2) 01/02/22 14:48 AST 21 U/L (0-32) 01/02/22 14:48 ALT 40 U/L (0-33) H 01/02/22 14:48 Alkaline Phosphatase 48 IU/L (35-105) 01/02/22 14:48 Total Protein 7.8 g/dL (6.6-8.7) 01/02/22 14:48 Albumin 4.3 g/dL (3.5-5.2) 01/02/22 14:48 Globulin 3.5 g/dL (1.3-4.6) 01/02/22 14:48 Lipase 26 U/L (13-60) 01/02/22 14:48 Urine Color Yellow (Yellow) 01/02/22 15:01 Urine Appearance Hazy (CLEAR) A 01/02/22 15:01 Urine pH 5 (5-7) 01/02/22 15:01 Ur Specific Helotes 1.020 (1.005-1.030) 01/02/22 15:01 Urine Protein Neg (Negative) 01/02/22 15:01 Urine Glucose (UA) Norm (Normal) 01/02/22 15:01 Urine Ketones 1+ (Negative) H 01/02/22 15:01 Urine Blood Neg (Negative) 01/02/22 15:01 Urine Nitrate Negative (Negative) 01/02/22 15:01 Urine Bilirubin Neg (Negative) 01/02/22 15:01 Urine Urobilinogen 4 mg/dL (Negative) H 01/02/22 15:01 Ur Leukocyte Esterase 1+ (Negative) H 01/02/22 15:01 Urine RBC None /hpf (0-2) 01/02/22 15:01 Urine WBC 0-4 /hpf (0-5) H 01/02/22 15:01 Ur Squamous Epith Cells 0-4 /hpf (0-5) H 01/02/22 15:01 Ur Transition Epith Cell None /hpf 01/02/22 15:01 Amorphous Sediment Not Reportable 01/02/22 15:01 Urine Bacteria 1+ /hpf (NONE) H 01/02/22 15:01 Urine Mucus 1+ /hpf 01/02/22 15:01 Discharge Plan Discharge Patient Disposition: Home Clinical Impression: Diverticulitis Condition: Stable Prescriptions: New hydrocodone-acetaminophen 5-325 mg tablet 1 tab PO Q6H PRN (Reason: pain) Qty: 20 0RF ondansetron HCl 4 mg tablet 4 mg PO Q6H PRN (Reason: nausea and vomiting) Qty: 20 0RF ciprofloxacin HCl 500 mg tablet 500 mg PO Q12H Qty: 20 0RF metronidazole 500 mg tablet 500 mg PO Q8H 10 Days Qty: 30 0RF No Action diclofenac sodium 75 mg tablet,delayed release (DR/EC) 75 mg PO BID PRN (Reason: pain) Qty: 60 1RF acetaminophen [Tylenol Extra Strength] 500 mg Tablet 500 - 1,000 mg PO PRN 0RF venlafaxine 37.5 mg tablet 37.5 mg PO DAILY 0RF hydroxyzine HCl 25 mg tablet 25 mg PO QID PRN (Reason: Anxiety) 0RF prednisone 10 mg tablet 10 mg PO DAILY PRN (Reason: Inflammation) 0RF ondansetron HCl 4 mg tablet 4 mg PO Q8H 0RF Discharge Orders: Discharge ED (Routine); Ordered 01/02/22 Ordered By: Kwesi Seals Referrals: Elizabeth Mejia, [Primary Care Provider] - Discharge Diet: Clear Liquid Discharge Activity: Increase activity as tolerated Patient Instructions: Opioid Safety Activity Restrictions/Additional Instructions: Liquid diet for 24 to 48 hours and advance as tolerated. Coding Level of Care Code ED Regional Marketing Director for Stacie Fwd Exam Comprehensive
[2022-01-02 14:50] VITALS: BP 154/101; PULSE 120; RESP 20; TEMP 37.2; O2SAT 98
[2022-01-02] MEDS: sodium chloride 0.9% 1,000 ML 999 ML IV (14:53)
[2022-01-02] MEDS: ondansetron 2 mg/ML SDV 2 mL 4 MG IVP (14:55)
[2022-01-02] MEDS: morphine 4 mg/mL SDV 1 mL IVP (14:55)
[2022-01-02 14:57] LABS: Basophils % 0.4 %; Eosinophils # 0.2 10^3/uL (0.0-0.8); Eosinophils % 1.4 %; Hematocrit 46.2 % (37.0-47.0); Hemoglobin 15.5 g/dL (11.5-15.3); Lymphocytes # 1.5 10^3/uL (0.8-4.8); Lymphocytes % 14.1 %; Mean Corpuscular HGB Conc 33.5 g/dL (30.0-36.0); Mean Corpuscular Hemoglobin 28.9 pg (28.0-34.0); Mean Platelet Volume 9.8 fL (7.4-10.4); Monocytes # 0.8 10^3/uL (0.2-0.9); Neutrophils % 75.7 %; Nucleated Red Blood Cells % 0 %; Platelet Count 240 10^3/cmm (130-400); Red Blood Count 5.37 10^6/uL (4.1-5.3); White Blood Count 10.4 10^3/uL (4.0-10.0)
[2022-01-02 15:00] VITALS: BP 170/108; PULSE 106; RESP 17; O2SAT 99
--- NOTE | 2022-01-02 15:02 | CT_ITS ---
WS: [id number] CT CHEST ANGIOGRAPHY CHEST, ABDOMEN AND PELVIS. HISTORY: tachy cardia/dyspnea/hx PE TECHNIQUE: Contiguous axial images are obtained through the chest during arterial injection of intrav enous contrast. Images are reconstructed to evaluate the aorta, imaging also reviewed. All CT scans at [facility] use at least one of these dose optimization techniques: automated exposure contr ol; mA and/or kV adjustment per patient size (includes targeted exams where dose is matched to clinic al indication); or iterative reconstruction. CONTRAST: Omnipaque 350; 95 mL IV. DLP: 2336.51 mGy.cm COMPARISON: 12/09/2019. Angiographic imaging was performed to evaluate the entire aorta as ordered by Dr. Seals. There is good opacification of the thoracic aorta. No aneurysm or thrombus. Limited opacification of the pulmonary arteries due to the phase of injection. No central pulmonary emboli. Heart is normal si ze. No pericardial effusion. The lung apices are not included. No mass or pneumonia. No mediastinal o r hilar adenopathy. Abdominal aorta is normal caliber. Mesenteric vessels are normally enhancing. No thrombus or occlusio n. LEFT renal vein is retroaortic. Common iliac arteries are patent. Internal and external iliac melissa kim are normal caliber. Mesenteric arteries are normal. Hepatic steatosis. The liver is enlarged. Normal size spleen and pancreas. No adrenal mass. Normal po rtal vein. Prior cholecystectomy. Normal kidneys. No free fluid or adenopathy within the abdomen or pelvis. The appendix is normal. No small bowel obst ruction. Focal area of moderate inflammation involving the descending colon with adjacent diverticula . There are numerous diverticula within this segment of colon. Inflammation extends over a length of approximately 12 cm. No abscess. No free fluid. Normal size uterus. No free fluid in the pelvis. No adenopathy. Normal size ovaries. No osseous abnormalities. CT/CT angio chest abdomen pelvis IMPRESSION: 1. Long segment acute diverticulitis involving the descending colon. No absces s. 2. Normal thoracic, abdominal and pelvic aortas. 3. Prior cholecystectomy. 4. Hepatic steatosis. 5. Additional distal sigmoid diverticulosis without acute diverticulitis.
[2022-01-02 15:23] LABS: Alanine Aminotransferase 40 U/L (0-33); Albumin Level 4.3 g/dL (3.5-5.2); Alkaline Phosphatase 48 IU/L (35-105); Aspartate Amino Transferase 21 U/L (0-32); Blood Urea Nitrogen 6 mg/dL (6-20); Calcium 9.5 mg/dL (8.5-10.5); Carbon Dioxide 25 mmol/L (22-29); Chloride 101 mmol/L (98-107); Globulin 3.5 g/dL (1.3-4.6); Glomerular Filtration Rate 136.6 mL/min (90-130); Glucose 102 mg/dL (65-115); Lipase 26 U/L (13-60); Osmolality Calculated 282 mOsm/kg (285-295); Sodium 137 mmol/L (136-145); Total Bilirubin 0.4 mg/dL (0.15-1.2); Total Protein 7.8 g/dL (6.6-8.7)
[2022-01-02 15:26] LABS: Urine Appearance Hazy (CLEAR); Urine Color Yellow (Yellow); pH Urine 5 (5-7)
[2022-01-02 15:27] LABS: Add Urine Microscopic? YES; Bilirubin Urine Neg (Negative); Blood Urine Neg (Negative); Glucose Urine UA Norm (Normal); Ketones Urine 1+ (Negative); Leukocyte Esterase Urine 1+ (Negative); Nitrate Urine Negative (Negative); Protein Urine Neg (Negative); Urobilinogen Urine 4 mg/dL (Negative)
[2022-01-02 15:28] LABS: Add Urine Culture? Yes; Bacteria Urine 1+ /hpf; Mucus Urine 1+ /hpf; Squamous Epithelial Cell Urine 0-4 /hpf (0-5); WBC Urine 0-4 /hpf (0-5)
[2022-01-02 15:41] LABS: Anion Gap 14.9 (5-19); Potassium 3.9 mmol/L (3.5-5.1)
[2022-01-02] MEDS: iohexol 350 mg/mL 100 mL Btl IV (15:44)
[2022-01-02] MEDS: morphine 4 mg/mL SDV 1 mL 6 MG IVP (17:04)
[2022-01-02 17:20] VITALS: BP 144/99; PULSE 106; O2SAT 95
== END 2022-01-02 17:23 | disposition home or self-care (01) ==
PROVIDERS: Emergency Provider Family Medicine; PCP Internal Medicine
DX: K57.32 Diverticulitis of large intestine without perforation or abscess without bleeding (principal); Z87.891 Personal history of nicotine dependence; Z79.52 Long term (current) use of systemic steroids
CPT/HCPCS: 71275; 74174; 74177; 80053; 81001; 83690; 85025; 87086; 93005; 96361; 96374; 96375; 96376; 99285; J2270; J2405; J7030; Q9967

== ENCOUNTER → 2022-03-01 14:53 | Outpatient (BNVA) | payer BC, SELFPAY | PROVIDERS: PCP Electrodiagnostic Medicine; Visit Provider Internal Medicine Rheumatology | DX: N91.2 Amenorrhea, unspecified (principal); M19.90 Unspecified osteoarthritis, unspecified site; R76.8 Other specified abnormal immunological findings in serum; M35.9 Systemic involvement of connective tissue, unspecified; Z79.899 Other long term (current) drug therapy | CPT/HCPCS: 80076; 82565; 84703; 85025; 86140 ==

== ENCOUNTER 2022-08-09 14:07 | Outpatient (CLI) | payer BC, SELFPAY ==
[2022-08-09 15:25] LABS: Basophils % 0.5 %; Eosinophils # 0.3 10^3/uL (0.0-0.8); Eosinophils % 3.7 %; Hemoglobin 15.2 g/dL (11.5-15.3); Lymphocytes # 2.3 10^3/uL (0.8-4.8); Lymphocytes % 30.7 %; Mean Corpuscular HGB Conc 32.3 g/dL (30.0-36.0); Mean Corpuscular Hemoglobin 28.5 pg (28.0-34.0); Mean Corpuscular Volume 88.2 fl (81-99); Mean Platelet Volume 9.6 fL (7.4-10.4); Monocytes # 0.6 10^3/uL (0.2-0.9); Monocytes % 8.3 %; Neutrophils % 56.5 %; Nucleated Red Blood Cells % 0 %; Platelet Count 298 10^3/cmm (130-400); Red Blood Count 5.33 10^6/uL (4.1-5.3); Red Cell Distribution Width 14.4 % (12.1-15.1); White Blood Count 7.6 10^3/uL (4.0-10.0)
[2022-08-09 15:46] LABS: Alanine Aminotransferase 84 U/L (0-33); Albumin Level 3.9 g/dL (3.5-5.2); Alkaline Phosphatase 64 U/L (35-105); Aspartate Amino Transferase 41 U/L (0-32); C Reactive Protein 8.8 mg/L (0.0-4.9); Globulin 3.6 g/dL (1.3-4.6); Glomerular Filtration Rate 92.2 mL/min (90-130); Total Bilirubin 0.2 mg/dL (0.15-1.2); Total Protein 7.5 g/dL (6.6-8.7)
== END 2022-08-09 14:08 | disposition home or self-care (01) ==
PROVIDERS: PCP Electrodiagnostic Medicine; Visit Provider Internal Medicine Rheumatology
DX: M19.90 Unspecified osteoarthritis, unspecified site (principal); Z79.899 Other long term (current) drug therapy
CPT/HCPCS: 36415; 80076; 82565; 85025; 86140

== ENCOUNTER → 2022-10-03 11:00 | Outpatient (BNVA) | payer BC, SELFPAY | PROVIDERS: PCP Electrodiagnostic Medicine; Visit Provider Internal Medicine Rheumatology | DX: M35.9 Systemic involvement of connective tissue, unspecified (principal); Z79.899 Other long term (current) drug therapy; M19.90 Unspecified osteoarthritis, unspecified site | CPT/HCPCS: 36415; 80076; 85651; 86140; 86200; 86812 ==

== ENCOUNTER → 2022-12-31 12:00 | Outpatient (BNVA) | payer BC, SELFPAY | PROVIDERS: PCP Electrodiagnostic Medicine; Visit Provider Internal Medicine Rheumatology | DX: M19.90 Unspecified osteoarthritis, unspecified site (principal); M35.9 Systemic involvement of connective tissue, unspecified; Z79.899 Other long term (current) drug therapy | CPT/HCPCS: 36415; 80076; 82565; 82657; 84439; 84443; 85025; 86140 ==

== ENCOUNTER 2023-02-05 06:33 | Outpatient (CLI) | payer BC, SELFPAY ==
--- NOTE | 2023-02-05 06:45 | US_ITS ---
WS: [id number] RIGHT UPPER QUADRANT ULTRASOUND HISTORY: Elevated LFTs. COMPARISON: 03/16/2015, 01/02/2022 Liver: 18.7 cm in length. Mildly enlarged liver. Mild coarsened echotexture throughout. No mass or bi le duct dilatation. Portal Vein: Normal hepatopetal flow with monophasic waveform. Gallbladder: Status post cholecystectomy. CBD: 0.4 cm Pancreas: Normal size and echogenicity. Right kidney: 12.0 cm in length. Normal size and echogenicity. No hydronephrosis or mass. Aorta and IVC: Unremarkable abdominal aorta and IVC. No ascites. US/US liver [id number] IMPRESSION: 1. Prior cholecystectomy. 2. Mild hepatic steatosis and hepatomegaly. Similar to the prior study of 03/16. 3. No bile duct dilatation.
[2023-02-05 07:20] LABS: Basophils # 0.1 10^3/uL (0.0-0.1); Basophils % 0.8 %; Eosinophils # 0.3 10^3/uL (0.0-0.8); Hematocrit 40.5 % (37.0-47.0); Hemoglobin 13.1 g/dL (11.5-15.3); Lymphocytes # 1.8 10^3/uL (0.8-4.8); Lymphocytes % 29.8 %; Mean Corpuscular HGB Conc 32.3 g/dL (30.0-36.0); Mean Corpuscular Hemoglobin 27.4 pg (28.0-34.0); Mean Corpuscular Volume 84.7 fl (81-99); Mean Platelet Volume 9.3 fL (7.4-10.4); Monocytes # 0.5 10^3/uL (0.2-0.9); Monocytes % 8.1 %; Neutrophils # 3.36 10^3/uL (1.8-7.7); Neutrophils % 55.6 %; Nucleated Red Blood Cells % 0 %; Platelet Count 246 10^3/cmm (130-400); Red Blood Count 4.78 10^6/uL (4.1-5.3); Red Cell Distribution Width 14.6 % (12.1-15.1)
[2023-02-05 07:27] LABS: Alanine Aminotransferase 46 U/L (0-33); Albumin Level 3.8 g/dL (3.5-5.2); Alkaline Phosphatase 55 U/L (35-105); Aspartate Amino Transferase 37 U/L (0-32); C Reactive Protein 10.8 mg/L (0.0-4.9); Globulin 2.8 g/dL (1.3-4.6); Glomerular Filtration Rate 110.2 mL/min (90-130); Total Bilirubin 0.2 mg/dL (0.15-1.2); Total Protein 6.6 g/dL (6.6-8.7)
--- NOTE | 2023-02-05 13:40 | MM_ITS ---
WS: [id number] DIAGNOSTIC BILATERAL DIGITAL BREAST TOMOSYNTHESIS MAMMOGRAPHY WITH CAD LEFT breast ultrasound, limited. HISTORY: LYMPHADENOPATHY, painful LEFT axilla. COMPARISON: None available. TECHNIQUE: Bilateral craniocaudad, mediolateral oblique, and mediolateral views are submitted with to moskirti and SABA. Computer aided detection utilized. Breast composition: There are scattered areas of fibroglandular density. No suspicious masses or calc ifications. No nipple retraction. No adenopathy. Prominent LEFT axillary lymph nodes but they appear normal. LEFT breast ultrasound, directed to the axilla. No mass is identified. Normal fatty lymph nodes in the axilla. MM/[place] [id number] IMPRESSION: BI-RADS: 2-Benign FOLLOW UP: 1 Year Follow-up
== END 2023-02-05 06:34 | disposition home or self-care (01) ==
PROVIDERS: PCP Electrodiagnostic Medicine; Visit Provider Internal Medicine Rheumatology
DX: R59.1 Generalized enlarged lymph nodes (principal); R79.89 Other specified abnormal findings of blood chemistry; M79.622 Pain in left upper arm; M19.90 Unspecified osteoarthritis, unspecified site; M35.9 Systemic involvement of connective tissue, unspecified; K76.0 Fatty (change of) liver, not elsewhere classified; R16.0 Hepatomegaly, not elsewhere classified; Z79.899 Other long term (current) drug therapy; Z90.49 Acquired absence of other specified parts of digestive tract
CPT/HCPCS: 36415; 76642; 76705; 77062; 80076; 82565; 85025; 86140; G0279

== ENCOUNTER → 2023-05-28 16:58 | Outpatient (BNVA) | payer BC, SELFPAY | PROVIDERS: PCP Electrodiagnostic Medicine; Visit Provider Internal Medicine Rheumatology | DX: M32.9 Systemic lupus erythematosus, unspecified (principal); M35.9 Systemic involvement of connective tissue, unspecified; R76.8 Other specified abnormal immunological findings in serum; Z79.899 Other long term (current) drug therapy | CPT/HCPCS: 36415; 85025 ==

== ENCOUNTER 2023-06-18 15:52 | Outpatient (CLI) | payer BC, SELFPAY ==
[2023-06-18 16:21] LABS: Basophils # 0.1 10^3/uL (0.0-0.1); Basophils % 0.9 %; Eosinophils # 0.2 10^3/uL (0.0-0.8); Eosinophils % 3.8 %; Hematocrit 45.4 % (36-47); Lymphocytes # 1.9 10^3/uL (0.8-4.8); Lymphocytes % 33.8 %; Mean Corpuscular HGB Conc 31.9 g/dL (30-55); Mean Corpuscular Hemoglobin 27.5 pg (27-33); Mean Platelet Volume 9.7 fL (7.4-10.4); Monocytes # 0.5 10^3/uL (0.2-0.9); Neutrophils # 2.87 10^3/uL (1.8-7.7); Neutrophils % 51.8 %; Nucleated Red Blood Cells % 0 %; Platelet Count 274 10^3/cmm (157-399); Red Blood Count 5.28 10^6/uL (3.85-5.65); Red Cell Distribution Width 14.2 % (12.1-15.1); White Blood Count 5.54 10^3/uL (3.29-11.43)
[2023-06-18 16:50] LABS: Alanine Aminotransferase 78 U/L (0-33); Albumin Level 3.8 g/dL (3.5-5.2); Alkaline Phosphatase 62 U/L (35-105); Aspartate Amino Transferase 86 U/L (0-32); C Reactive Protein 7.5 mg/L (0.0-4.9); Globulin 3.3 g/dL (1.3-4.6); Glomerular Filtration Rate 91.8 mL/min (90-130); Total Bilirubin 0.3 mg/dL (0.15-1.2); Total Protein 7.1 g/dL (6.6-8.7)
[2023-06-18 17:03] LABS: 25 Hydroxy Vitamin D 15 ng/mL (30-100)
== END 2023-06-18 15:53 | disposition home or self-care (01) ==
PROVIDERS: PCP Electrodiagnostic Medicine; Visit Provider Internal Medicine Rheumatology
DX: M32.9 Systemic lupus erythematosus, unspecified (principal); M35.9 Systemic involvement of connective tissue, unspecified; R76.8 Other specified abnormal immunological findings in serum; Z79.899 Other long term (current) drug therapy; D69.6 Thrombocytopenia, unspecified
CPT/HCPCS: 36415; 80076; 82306; 82565; 85025; 86140

== ENCOUNTER → 2023-09-03 14:05 | Outpatient (BNVA) | payer BC, SELFPAY | PROVIDERS: PCP Electrodiagnostic Medicine; Visit Provider Internal Medicine Rheumatology | DX: Z79.899 Other long term (current) drug therapy (principal); M32.9 Systemic lupus erythematosus, unspecified | CPT/HCPCS: 36415; 80076; 82565; 82657; 85025; 86140 ==

== ENCOUNTER 2023-09-04 15:30 | Outpatient (CLI) | payer BC, SELFPAY ==
--- NOTE | 2023-09-04 | CTR_ITS ---
PROCEDURE INFORMATION: Exam: CTA Chest With Contrast Exam date and time: 09/04/2023 5:09 PM Age: 43 years old Clinical indication: Dyspnea TECHNIQUE: Imaging protocol: Computed tomographic angiography of the chest with contrast. Exam focused on the arteries. 3D rendering (Not supervised by radiologist): MIP and/or 3D reconstructed images were created by the technologist. Radiation optimization: All CT scans at this facility use at least one of these dose optimization techniques: automated exposure control; mA and/or kV adjustment per patient size (includes targeted exams where dose is matched to clinical indication); or iterative reconstruction. Contrast material: OMNIPAQUE 350; Contrast volume: 75 ml; Contrast route: INTRAVENOUS (IV); COMPARISON: CT angio chest PE protcl [id number] 12/09/2019 2:12 PM RADIATION DOSE METRICS: Total DLP (mGy-cm): 526.04 FINDINGS: Pulmonary arteries: No central or segmental pulmonary emboli. Aorta: No aortic aneurysm or dissection. Lungs: No focal consolidation. Pleural spaces: No pneumothorax. No pleural effusion. Heart: No pericardial effusion. Lymph nodes: No enlarged lymph nodes. Bones/joints: No acute findings. Soft tissues: Hepatic steatosis. Cholecystectomy. CT/CT angio chest [id number] IMPRESSION: No acute chest findings.
[2023-09-04] MEDS: iohexol 350 mg/mL 500 mL Btl (per mL) IV (17:13)
== END 2023-09-04 15:31 | disposition home or self-care (01) ==
LOC: RAD 15:30
PROVIDERS: PCP Electrodiagnostic Medicine; Visit Provider Electrodiagnostic Medicine
DX: R06.00 Dyspnea, unspecified (principal)
CPT/HCPCS: 71275; Q9967

== ENCOUNTER 2023-09-25 18:40 | Emergency (ER) | payer BC, SELFPAY ==
[2023-09-25 18:43] VITALS: BP 152/90; PULSE 90; RESP 16; TEMP 36.6; O2SAT 96
--- NOTE | 2023-09-25 18:48 | XRR_ITS ---
PROCEDURE INFORMATION: Exam: XR Chest Exam date and time: 09/25/2023 7:02 PM Age: 43 years old Clinical indication: Shortness of breath; Additional info: SOB TECHNIQUE: Imaging protocol: Radiologic exam of the chest. Views: 1 view. COMPARISON: CT angio chest [id number] 09/04/2023 5:09 PM FINDINGS: Lungs: No focal consolidation. Hazy opacities in the region of the lingula compatible with atelectasis or developing infection in the proper clinical setting. Pleural spaces: No evidence of pneumothorax. No evidence of pleural effusion. Heart/Mediastinum: Cardiomediastinal silhouette is within normal limits. Bones/joints: No evidence of acute osseous abnormality. XR/XR chest 1V portable [id number] IMPRESSION: 1. Hazy opacities in the region of the lingula compatible with atelectasis or developing infection in the proper clinical setting. Lungs are otherwise clear.
--- NOTE | 2023-09-25 19:16 | W.ED.CHESTPA ---
HPI - Chest Pain General: Chief Complaint: Chest Pain Stated Complaint: cp,sob Time Seen by Provider: 09/25/23 19:01 History of Present Illness: Patient presents to the ER with complaints of pressure in her chest. Feels lightheaded dizzy and diaphoretic. This been going on for over the last month patient's been seen by her family practice doctor who is referred her to her sand mill grinder. Patient was recently started on metoprolol approximately 1 week ago for tachycardia. Patient reports her heart rate used to get up in the 140s to 160s with very minimal exertion and this has improved since she started the metoprolol. Patient does have an extensive family history of heart problems but no heart problems for her. Patient does have lupus and fibromyalgia. Review of Systems General: Reports: 10 or more systems reviewed and unremarkable except in HPI and below PFSH ED PFSH: Medical History SLE (systemic lupus erythematosus related syndrome) Inflammatory arthritis Undifferentiated connective tissue disease Immunization counseling High risk medication use Joint pain Positive ARDEN (antinuclear antibody) Pulmonary embolism Anxiety Depression Surgical History H/O lumpectomy Tubal ligation status History of cholecystectomy Family History Other CAD (coronary artery disease) Cancer Hyperlipidemia Hypertension Denies family history of Rheumatoid arthritis Diabetes Lupus Lung disease Stroke Social History Smoking and tobacco/nicotine status: never used tobacco/nicotine Quit status (tobacco/nicotine): has quit using Year quit tobacco: 2020 - PPD x 5 Years Second hand smoke exposure: Yes Alcohol intake: never Substance/Drug Use: never Lives independently: Yes Household members: spouse Marital status: Current occupational status: unemployed Do you think of yourself as: Straight/Heterosexual Current gender identity: Female Physical Exam Const: COMMON NORMALS: no acute distress, average body habitus, patient oriented x3, no limitations, healthy appearing, alert and well nourished HENMT: COMMON NORMALS: normocephalic, atraumatic, hearing grossly normal bilaterally, external ears normal, Normal external nose present, moist oral mucous membranes and oropharynx normal HEAD & SCALP: normocephalic and atraumatic NOSE: Normal external nose present EXTERNAL EAR: Yes external ears normal Neck/C-Spine: COMMON NORMALS: full ROM, no lymphadenopathy, supple, no meningeal signs, no JVD and Thyroid normal THYROID: Thyroid normal Chest: COMMONS NORMALS: normal inspection of the chest and normal palpation of entire chest wall Resp: COMMON NORMALS: normal respiratory effort, No retractions, No use of accessory muscles and clear to auscultation bilaterally AUSCULTATION: clear to auscultation bilaterally Cardio: COMMON NORMALS: no JVD, regular rate, regular rhythm, S1 normal heart sound present, S2 normal heart sound present, No gallops present (Cardio), No clicks present (Cardio), No murmurs present (Cardio) and No rub (Cardio) RATE: regular rate RHYTHM: regular rhythm HEART SOUNDS: S1 normal heart sound present and S2 normal heart sound present GI: COMMON NORMALS: Normal to inspection, nondistended, normoactive bowel sounds present, Soft to palpation, non-tender, No hepatosplenomegaly present and no masses PALPATION: Yes Soft to palpation and Yes No hepatosplenomegaly present Neuro: COMMON NORMALS: patient oriented x3 SENSORIUM/ORIENTATION: Yes alert MENINGEAL SIGNS: Yes no meningeal signs Course Vital Signs: Vital signs: Vital Signs Temperature 97.9 F 09/25/23 18:43 Pulse Rate 85 09/25/23 23:00 Respiratory Rate 18 09/25/23 23:00 Blood Pressure 136/99 09/25/23 23:00 Pulse Oximetry 95 09/25/23 23:00 Oxygen Delivery Me thod Room Air 09/25/23 22:53 MDM - Chest Pain Medical Decision Making Patient presented to the ER with chest pain. Patient was worked up in normal chest pain fashion with serial EKGs, serial lab work, chest x-ray, all of which did not show any acute coronary cause of chest pain. Is thought the patient is noncardiac chest pain. Patient is already in the process of being sent to a sand mill grinder for further evaluation. Patient be discharged home and should keep the appoint with a sand mill grinder. Differential Diagnosis Unlikely acute massive pulmonary embolism, acute respiratory failure, acute myocardial infarction, cardiac arrest or sudden cardiac Medical Records I reviewed the patient's medical records. Lab Data I reviewed the patient's lab results. 09/25/23 19:16 09/25/23 19:16 Radiology Impressions Chest X-Ray 09/25/23 18:48 IMPRESSION: 1. Hazy opacities in the region of the lingula compatible with atelectasis or developing infection in the proper clinical setting. Lungs are otherwise clear. Laboratory Results WBC 7.08 10^3/uL (3.29-11.43) 09/25/23 19:16 RBC 5.09 10^6/uL (3.85-5.65) 09/25/23 19:16 Hgb 13.60 g/dL (11.27-16.99) 09/25/23 19:16 Hct 42.8 % (36-47) 09/25/23 19:16 MCV 84.1 fl (85-98) L 09/25/23 19:16 MCH 26.7 pg (27-33) L 09/25/23 19:16 MCHC 31.8 g/dL (30-55) 09/25/23 19:16 RDW 15.7 % (12.1-15.1) H 09/25/23 19:16 Plt Count 229 10^3/cmm (157-399) 09/25/23 19:16 MPV 9.6 fL (7.4-10.4) 09/25/23 19:16 Neut % (Auto) 60.9 % 09/25/23 19:16 Lymph % (Auto) 26.0 % 09/25/23 19:16 [place] % (Auto) 8.2 % 09/25/23 19:16 Eos % (Auto) 3.5 % 09/25/23 19:16 Baso % (Auto) 0.7 % 09/25/23 19:16 Neut # (Auto) 4.31 10^3/uL (1.8-7.7) 09/25/23 19:16 Lymph # (Auto) 1.8 10^3/uL (0.8-4.8) 09/25/23 19:16 [place] # (Auto) 0.6 10^3/uL (0.2-0.9) 09/25/23 19:16 Eos # (Auto) 0.3 10^3/uL (0.0-0.8) 09/25/23 19:16 Baso # (Auto) 0.1 10^3/uL (0.0-0.1) 09/25/23 19:16 Nucleated RBC % (auto) 0 % 09/25/23 19:16 Nucleated RBCs # 0.0 /100WBC 09/25/23 19:16 Sodium 135 mmol/L (136-145) L 09/25/23 19:16 Potassium 4.5 mmol/L (3.5-5.1) 09/25/23 19:16 Chloride 101 mmol/L (98-107) 09/25/23 19:16 Carbon Dioxide 23 mmol/L (22-29) 09/25/23 19:16 Anion Gap 15.5 (5-19) 09/25/23 19:16 BUN 10 mg/dL (6-20) 09/25/23 19:16 Creatinine 0.6 mg/dL (0.5-0.9) 09/25/23 19:16 GFR Calculation 109.6 mL/min (90-130) 09/25/23 19:16 Glucose 208 mg/dL (65-115) H 09/25/23 19:16 Calculated Osmolality 285 mOsm/kg (285-295) 09/25/23 19:16 Calcium 8.8 mg/dL (8.5-10.5) 09/25/23 19:16 Total Bilirubin 0.2 mg/dL (0.15-1.2) 09/25/23 19:16 AST 110 U/L (0-32) H 09/25/23 19:16 ALT 97 U/L (0-33) H 09/25/23 19:16 Alkaline Phosphatase 68 U/L (35-105) 09/25/23 19:16 Troponin T Baseline < 6 ng/L (0-10) 09/25/23 19:16 Troponin T 120 Minute 6.00 ng/L (0-10) 09/25/23 21:20 Delta Troponin T 0.94733 ABS# (0-10) 09/25/23 21:20 NT-Pro-B Natriuret Pep 170 pg/mL (0-125) H 09/25/23 19:16 Total Protein 6.7 g/dL (6.6-8.7) 09/25/23 19:16 Albumin 3.8 g/dL (3.5-5.2) 09/25/23 19:16 Globulin 2.9 g/dL (1.3-4.6) 09/25/23 19:16 All radiology interpretation(s) finalized by discharge EKG Data EKG 1: I personally reviewed and interpreted this EKG as follows: EKG interpretation date: 09/25/23 EKG interpretation time: 18:46 Prior EKG tracings: not available for review Interpretation: EKG showed ventricular rate 91 bpm, WI interval 120, QRS 86, QTc 435, sinus rhythm, EKG 2: I personally reviewed and interpreted this EKG as follows: EKG interpretation date: 09/25/23 EKG interpretation time: 22:27 Prior EKG tracings: available for review Interpretation: EKG showed ventricular rate 74 beats minute, WI interval 136, QRS duration 85, QTc 396, sinus rhythm with marked sinus arrhythmia, Discharge Plan Discharge Patient Disposition: Home Clinical Impression: Elevated liver enzymes Chest pain Qualifiers: Chest pain type: unspecified Qualified Code(s): R07.9 - Chest pain, unspecified Condition: Stable Prescriptions: No Action omeprazole 40 mg capsule,delayed release(DR/EC) 40 mg PO QAM azathioprine 50 mg tablet See Rx Instructions PO .COMPLEX Qty: 90 3RF Rx Instructions: take 2 tabs in AM and 1 tab in PM orally; prednisone 20 mg tablet See Rx Instructions PO .COMPLEX PRN (Reason: joint pain flare) Qty: 30 1RF Rx Instructions: take 1 or 2 tab daily for 3-7 days as needed for arthritis flare PO PRN; duloxetine 60 mg capsule,delayed release(DR/EC) 60 mg PO DAILY folic acid 1 mg tablet 1 mg PO DAILY Qty: 90 3RF metoclopramide HCl 10 mg tablet See Rx Instructions .ROUTE .COMPLEX Qty: 30 0RF Dose Instruction: TAKE 1 TABLET BY MOUTH EVERY 6 HOURS NEEDED FOR NAUSEA AND VOMITING Rx Instructions: TAKE 1 TABLET BY MOUTH EVERY 6 HOURS NEEDED FOR NAUSEA AND VOMITING diclofenac sodium 75 mg tablet,delayed release (DR/EC) See Rx Instructions .ROUTE .COMPLEX Qty: 60 0RF Dose Instruction: Take 1 tablet by mouth twice daily as needed for pain Rx Instructions: Take 1 tablet by mouth twice daily as needed for pain acetaminophen [Tylenol Extra Strength] 500 mg Tablet 500 - 1,000 mg PO PRN hydroxyzine HCl 25 mg tablet 25 mg PO QID PRN (Reason: Anxiety) Discharge Orders: Discharge ED (Routine); Ordered 09/25/23 Ordered By: Philip Stein Referrals: Alvaro Reeves DO [Primary Care Provider] - 1 week Patient Instructions: Chest Pain (ED) Activity Restrictions/Additional Instructions: Please keep your upcoming appointments when scheduled with the sand mill grinder for further evaluation and treatment. Otherwise if your pain continues or worsens or changes please feel free to return to the ER. Coding Level of Care Code ED Tailing Hand for Stacie Ortez
[2023-09-25 19:23] LABS: Basophils # 0.1 10^3/uL (0.0-0.1); Basophils % 0.7 %; Eosinophils # 0.3 10^3/uL (0.0-0.8); Eosinophils % 3.5 %; Hematocrit 42.8 % (36-47); Lymphocytes # 1.8 10^3/uL (0.8-4.8); Mean Corpuscular HGB Conc 31.8 g/dL (30-55); Mean Corpuscular Hemoglobin 26.7 pg (27-33); Mean Corpuscular Volume 84.1 fl (85-98); Mean Platelet Volume 9.6 fL (7.4-10.4); Monocytes # 0.6 10^3/uL (0.2-0.9); Monocytes % 8.2 %; Neutrophils # 4.31 10^3/uL (1.8-7.7); Neutrophils % 60.9 %; Nucleated Red Blood Cells % 0 %; Platelet Count 229 10^3/cmm (157-399); Red Blood Count 5.09 10^6/uL (3.85-5.65); Red Cell Distribution Width 15.7 % (12.1-15.1); White Blood Count 7.08 10^3/uL (3.29-11.43)
[2023-09-25 19:41] LABS: Troponin(5th) Baseline < 6 ng/L (0-10)
[2023-09-25 19:59] LABS: Alanine Aminotransferase 97 U/L (0-33); Albumin Level 3.8 g/dL (3.5-5.2); Alkaline Phosphatase 68 U/L (35-105); Blood Urea Nitrogen 10 mg/dL (6-20); Calcium 8.8 mg/dL (8.5-10.5); Carbon Dioxide 23 mmol/L (22-29); Chloride 101 mmol/L (98-107); Globulin 2.9 g/dL (1.3-4.6); Glomerular Filtration Rate 109.6 mL/min (90-130); Glucose 208 mg/dL (65-115); NT Pro B Type Natriuretic Pept 170 pg/mL (0-125); Osmolality Calculated 285 mOsm/kg (285-295); Sodium 135 mmol/L (136-145); Total Bilirubin 0.2 mg/dL (0.15-1.2); Total Protein 6.7 g/dL (6.6-8.7)
[2023-09-25 20:06] LABS: Anion Gap 15.5 (5-19); Aspartate Amino Transferase 110 U/L (0-32); Potassium 4.5 mmol/L (3.5-5.1)
[2023-09-25 20:37] VITALS: PULSE 88; RESP 20; O2SAT 95
--- NOTE | 2023-09-25 20:48 | ECG_ITS ---
[facility] Test Date: 2023-09-25 Pat Name: Emily Jauregui Department: Room: Gender: Female Hot Man: : 1980 Requested By: Val Fields Order Number: [id number] Nusrat MD: Redd Cartwright M.D. Measurements Intervals [place] Rate: 91 P: 14 [place]: 120 QRS: 18 QRSD: 86 T: 37 QT: 352 QTc: 435 Interpretive Statements SINUS RHYTHM Compared to ECG 01/02/2022 13:15:08 Sinus tachycardia no longer present Electronically Signed On 09-29-2023 11:00:57 ROTATING EQUIPMENT SPECIALIST by Redd Cartwright M.D. [id number]
[2023-09-25 22:02] LABS: Troponin 5 2HR Delta 0.00001 ABS# (0-10)
[2023-09-25 22:53] VITALS: BP 136/99; PULSE 85; RESP 18; O2SAT 95
[2023-09-25 23:00] VITALS: BP 136/99; PULSE 85; RESP 18; O2SAT 95
--- NOTE | 2023-10-03 07:08 | DCPLANNER ---
Message was sent to heart care on 10/03/23 at 0710.
== END 2023-09-25 23:00 | disposition home or self-care (01) ==
PROVIDERS: Emergency Medicine; Emergency Provider Emergency Medicine; PCP Electrodiagnostic Medicine
DX: R07.9 Chest pain, unspecified (principal); R74.8 Abnormal levels of other serum enzymes; Z87.891 Personal history of nicotine dependence; M32.9 Systemic lupus erythematosus, unspecified
CPT/HCPCS: 36415; 71045; 80053; 83880; 84484; 85025; 93005; 99285

== ENCOUNTER 2023-11-05 09:38 | Outpatient (CLI) | payer BC, SELFPAY ==
--- NOTE | 2023-11-05 10:31 | ECG_ITS ---
[facility] Test Date: 2023-11-05 Pat Name: Emily Jauregui Department: Room: Gender: Female Optical Assistant: : 1980 Requested By: Alvaro Manzano Order Number: [id number] Silverio MD: Redd Cartwright M.D. Interpretive Statements NAME OF STUDY: LEXISCAN SESTAMIBI STRESS TEST INDICATION: [Chest Pain, ] Procedure: At the baseline, the blood pressure was 135/90 mmHg with a heart rate of 98 bpm. The electrocardiogram showed normal sinus rhythm, normal axis with normal ST and T's. The Lexiscan was infused over a period of 20 seconds. A total of 0.4 mg of Lexiscan was infused. The stress phase was continued for a total of 5 minutes. Heart rate was at the end of stress phase was 103 bpm and a blood pressure of 121/81mmHg. The EKG at the peak infusion revealed normal sinus rhythm with no significant ST-T wave changes. Sestamibi was injected 20 seconds after the Lexiscan infusion. Blood pressure at the end of recovery phase was 134/84 mmHg with a heart rate of 102 bpm. Conclusion: 1. Normal EKG response to Lexiscan infusion 2. No Lexiscan induced chest pain or cardiac arrhythmia. 3. Normal blood pressure and heart rate response. 4. Sestamibi/sestamibi perfusion scan pending; see separate report. Electronically Signed On 11-25-2023 11:37:53 CDT by Redd Cartwright M.D. [email or web address] [email or web address]/store/OM/[id number]
--- NOTE | 2023-11-05 10:31 | NMCV_ITS ---
NM karla perf SPECT r/s* [id number] Shania Emily Age: 43 Gender: F : 1980 Exam Date: 11/05/2023 10:46 Ordering Phys: Alvaro Reeves DO Technologist: DEREK Miranda Exam Location: [facility] Indications: CHEST PAIN STRESS TEST Please see [facility] for [facility] IMAGE PROTOCOL Rest/Stress 1 Lexiscan Day Radiopharmaceutical Dose (mCi) Administration Site Administered by Rest: Tc-99m 11.0 IV DEREK Crocker Sestamibi Stress:Tc-99m 33.0 IV DEREK Miranda Sestamijacki Rest: 05-Nov-2023 60 Discovery 630 Stress: 05-Nov-2023 30 Discovery 630 0.4mg Lexiscan. Images obtained in supine and prone position. SPECT RESULTS Technical Quality: Excellent Raw Data Analysis: Normal Image Corrections: No attenuation or motion correction applied Summed Stress Score: 1 Summed Rest Score: 0 Summed Difference Score: 1 PERFUSION FINDINGS There is a small sized, partially reversible perfusion defect seen in apical lateral wall. This may represent artifact motion artifact versus small area of prior infarct with minimal madeline-infarct ischemia in left circumflex artery territory. FUNCTIONAL RESULTS (calculated via Gated SPECT) Stress Image LV EF (%): 61 Stress EDV (mL):82 TID: 0.88 Stress ESV (mL):32 FUNCTIONAL FINDINGS: There is normal left ventricular systolic function. IMPRESSIONS 1. Small area of attenuation artifact versus prior infarct with madeline-infarct ischemia seen in left circumflex artery territory. Clinical correlation required. 2. LV systolic function is normal. Redd Cartwright MD (Electronically Signed) Final Date: 05 November 2023 12:33 S
[2023-11-05 10:50] VITALS: BMI 47.5
[2023-11-05] MEDS: regadenoson 0.4 Mg/5 ml Syringe 0.400000000000000022 MG IVP (11:21)
[2023-11-05 11:53] VITALS: BP 121/81; PULSE 106
== END 2023-11-05 09:39 | disposition home or self-care (01) ==
PROVIDERS: PCP Electrodiagnostic Medicine; Visit Provider Electrodiagnostic Medicine
DX: R07.9 Chest pain, unspecified (principal)
CPT/HCPCS: 36415; 78452; 93017; 96374; A9500; J2785

== ENCOUNTER → 2023-11-11 15:36 | Outpatient (BNVA) | payer BC, SELFPAY | PROVIDERS: PCP Electrodiagnostic Medicine; Referring Provider Electrodiagnostic Medicine; Visit Provider Internal Medicine Cardiovascular Disease | DX: R07.9 Chest pain, unspecified (principal) | CPT/HCPCS: 93005 ==

== ENCOUNTER 2023-11-11 15:54 | Observation (INO) | payer BC, SELFPAY ==
[2023-11-11] VITALS (51 sets, daily range): BP systolic 126–189; BP diastolic 76–114; PULSE 74–111; RESP 15–27; TEMP 36.6; O2SAT 93–97; BMI 47.5
--- NOTE | 2023-11-11 15:59 | XRR_ITS ---
PROCEDURE INFORMATION: Exam: XR Chest Exam date and time: 11/11/2023 4:22 PM Age: 43 years old Clinical indication: Pain; Angina pectoris; Additional info: Cp TECHNIQUE: Imaging protocol: Radiologic exam of the chest. Views: 1 view. COMPARISON: CR XR chest 1V portable [id number] 09/25/2023 7:02 PM FINDINGS: Lungs: Hypoinflation with minimal jqno-gxuxkpn-tkrk-right basilar atelectasis or infiltrate. Pleural spaces: Unremarkable. No pleural effusion. No pneumothorax. Heart/Mediastinum: Stable heart size. Bones/joints: Stable bones. Other findings: Unchanged right hemidiaphragmatic elevation. XR/XR chest 1V portable [id number] IMPRESSION: Hypoinflation with minimal pjlf-fylbovk-mswf-right basilar atelectasis or infiltrate. Correlate for pulmonary infection.
--- NOTE | 2023-11-11 16:02 | ECG_ITS ---
[facility] Test Date: 2023-11-11 Pat Name: Emily Jauregui Department: Room: Gender: Female Manager Power: : 1980 Requested By: Val Fields Order Number: [id number] Nusrat MD: Colette Clark M.D. Measurements Intervals [place] Rate: 89 P: 44 RI: 138 QRS: 23 QRSD: 85 T: 27 QT: 345 QTc: 422 Interpretive Statements SINUS RHYTHM Compared to ECG 11/11/2023 15:43:42 No significant changes Electronically Signed On 11-11-2023 18:55:09 CDT by Colette Clark M.D. [id number]
--- NOTE | 2023-11-11 16:06 | PC.NURSE ---
Pt placed on bedside nurse monitoring
--- NOTE | 2023-11-11 16:07 | ED_ITS ---
HPI - Chest Pain 2 General: Chief Complaint: Chest Pain Stated Complaint: Chest pains Time Seen by Provider: 11/11/23 15:57 Source: patient Mode of arrival: ambulatory Limitations: no limitations History of Present Illness: 3-year-old female states that having int ermittent chest pain and shortness of breath the last 2 months she had a stress test done last week she states that she has been having worsening chest pain palpitations especially with exertion she was seeing Dr. Clark in the office and sent her over here due to her symptoms. She rates her pain a 3 out of 10 currently denies any cough or fever. Associated symptoms: Reports dyspnea and palpitations; Deny abdominal pain, fever(s), nausea or vomiting Review of Systems 2 Const: Denies: fever(s), chills, body aches or change in appetite ENMT: Denies: throat pain or dental pain Card: Reports: chest pain and palpitations Resp: Reports: dyspnea GI: Denies: abdominal pain, nausea, vomiting or diarrhea Musc: Denies: neck pain or back pain Skin/Breast: Denies: rash Neuro: Denies: headache(s) PFSH ED 2 PFSH: Medical History SLE (systemic lupus erythematosus related syndrome) Inflammatory arthritis Undifferentiated connective tissue disease Immunization counseling High risk medication use Joint pain Positive ARDEN (antinuclear antibody) Pulmonary embolism Anxiety Depression Surgical History H/O lumpectomy Tubal ligation status History of cholecystectomy Family History Mother Atrial fibrillation Congestive heart failure (CHF) Grandmother Congestive heart failure (CHF) Sudden cardiac Other CAD (coronary artery disease) Cancer Hyperlipidemia Hypertension Denies family history of Rheumatoid arthritis Diabetes Lupus Anemia Aneurysm TIA (transient ischemic attack) Hyperthyroidism Hypothyroidism Chronic kidney disease (CKD) Congenital heart disease Carotid artery disease Lung disease Cardiomyopathy Parkinson disease Stroke Social History Smoking and tobacco/nicotine status: never used tobacco/nicotine Quit status (tobacco/nicotine): has quit using Year quit tobacco: 2020 - PPD x 5 Years Second hand smoke exposure: Yes Alcohol intake: never Substance/Drug Use: never Lives independently: Yes Household members: spouse Marital status: Current occupational status: unemployed Do you think of yourself as: Straight/Heterosexual Current gender identity: Female Female Reproductive History: Date of last menstrual period: 11/11/23 Physical Exam 2 Const: COMMON NORMALS: patient oriented x3 HENMT: COMMON NORMALS: normocephalic and atraumatic HEAD & SCALP: n ormocephalic and atraumatic Neck/C-Spine: COMMON NORMALS: full ROM and supple Chest: COMMONS NORMALS: normal inspection of the chest and normal palpation of entire chest wall Resp: COMMON NORMALS: normal respiratory effort, No retractions, No use of accessory muscles and clear to auscultation bilaterally AUSCULTATION: clear to auscultation bilaterally Cardio: COMMON NORMALS: regular rate, regular rhythm and No murmurs present (Cardio) RATE: regular rate RHYTHM: regular rhythm GI: COMMON NORMALS: Normal to inspection, nondistended, normoactive bowel sounds present, Soft to palpation, non-tender and no masses PALPATION: Yes Soft to palpation Extremity: COMMON NORMALS: normal to inspection and full ROM Neuro: COMMON NORMALS: patient oriented x3, moves all extremities and no focal motor deficits Psych: COMMON NORMALS: mental status grossly normal, Normal thought process present and cooperative THOUGHT PROCESS: Normal thought process present Skin: COMMON NORMALS: no rashes or lesions noted and no wounds GENERAL SKIN EXAM: no rashes or lesions noted Course 2 Vital Signs: Vital signs: Vital Signs Temperature 97.9 F 11/11/23 15:59 Pulse Rate 88 11/11/23 18:25 Respiratory Rate 25 H 11/11/23 18:25 Blood Pressure 146/97 11/11/23 18:25 Pulse Oximetry 96 11/11/23 18:25 Oxygen Delivery Me thod Room Air 11/11/23 18:25 MDM - Chest Pain Medical Decision Making Patient presents here with chest pain D-dimer here is negative EKG showed no ST elevation spoke to patient's corporate human resources manager along with the hospitalist and will admit Medical Records I reviewed the patient's medical records. Lab Data I reviewed the patient's lab results. 11/11/23 16:58 11/11/23 16:58 Radiology Impressions Chest X-Ray 11/11/23 15:59 IMPRESSION: Hypoinflation with minimal ywto-laibpoh-auui-right basilar atelectasis or infiltrate. Correlate for pulmonary infection. Laboratory Results WBC 8.66 10^3/uL (3.29-11.43) 11/11/23 16:58 RBC 5.21 10^6/uL (3.85-5.65) 11/11/23 16:58 Hgb 13.60 g/dL (11.27-16.99) 11/11/23 16:58 Hct 42.5 % (36-47) 11/11/23 16:58 MCV 81.6 fl (85-98) L 11/11/23 16:58 MCH 26.1 pg (27-33) L 11/11/23 16:58 MCHC 32.0 g/dL (30-55) 11/11/23 16:58 RDW 16.3 % (12.1-15.1) H 11/11/23 16:58 Plt Count 261 10^3/cmm (157-399) 11/11/23 16:58 MPV 9.8 fL (7.4-10.4) 11/11/23 16:58 Neut % (Auto) 62.5 % 11/11/23 16:58 Lymph % (Auto) 23.2 % 11/11/23 16:58 [place] % (Auto) 9.5 % 11/11/23 16:58 Eos % (Auto) 3.5 % 11/11/23 16:58 Baso % (Auto) 0.6 % 11/11/23 16:58 Neut # (Auto) 5.42 10^3/uL (1.8-7.7) 11/11/23 16:58 Lymph # (Auto) 2.0 10^3/uL (0.8-4.8) 11/11/23 16:58 [place] # (Auto) 0.8 10^3/uL (0.2-0.9) 11/11/23 16:58 Eos # (Auto) 0.3 10^3/uL (0.0-0.8) 11/11/23 16:58 Baso # (Auto) 0.1 10^3/uL (0.0-0.1) 11/11/23 16:58 Nucleated RBC % (auto) 0 % 11/11/23 16:58 Nucleated RBCs # 0.0 /100WBC 11/11/23 16:58 PT 13.10 SECONDS (12.1-14.9) 11/11/23 16:58 INR 0.96 (0.8-1.2) 11/11/23 16:58 D-Dimer 0.30 ug/mLFEU (0-0.59) 11/11/23 16:58 Sodium 133 mmol/L (136-145) L 11/11/23 16:58 Potassium 4.3 mmol/L (3.5-5.1) 11/11/23 16:58 Chloride 99 mmol/L (98-107) 11/11/23 16:58 Carbon Dioxide 24 mmol/L (22-29) 11/11/23 16:58 Anion Gap 14.3 (5-19) 11/11/23 16:58 BUN 6 mg/dL (6-20) 11/11/23 16:58 Creatinine 0.5 mg/dL (0.5-0.9) 11/11/23 16:58 GFR Calculation 135.3 mL/min (90-130) H 11/11/23 16:58 Glucose 194 mg/dL (65-115) H 11/11/23 16:58 Calculated Osmolality 279 mOsm/kg (285-295) L 11/11/23 16:58 Calcium 9.1 mg/dL (8.5-10.5) 11/11/23 16:58 Total Bilirubin 0.3 mg/dL (0.15-1.2) 11/11/23 16:58 AST 101 U/L (0-32) H 11/11/23 16:58 ALT 98 U/L (0-33) H 11/11/23 16:58 Alkaline Phosphatase 83 U/L (35-105) 11/11/23 16:58 Troponin T Baseline 12 ng/L (0-10) H 11/11/23 16:58 Total Protein 6.6 g/dL (6.6-8.7) 11/11/23 16:58 Albumin 4.0 g/dL (3.5-5.2) 11/11/23 16:58 Globulin 2.6 g/dL (1.3-4.6) 11/11/23 16:58 All radiology interpretation(s) finalized by discharge EKG Data EKG 1: I personally reviewed and interpreted this EKG as follows: EKG interpretation date: 11/11/23 EKG interpretation time: 16:02 Interpretation: nsr hr [address] or t wave abnormalities qrs 85 qtc 392 Discharge Plan Discharge Patient Disposition: Admitted As Inpatient Admit Provider: Kaitlynn Nick Clinical Impression: Chest pain Condition: Stable Coding Level of Care Code ED Staff Development Nurse for Chg Neelima
[2023-11-11] MEDS: aspirin 81 mg Chew Tablet 324 MG PO (16:08)
[2023-11-11] MEDS: labetalol 5 mg/mL SDV 20mL 10 MG IVP (17:02)
[2023-11-11 17:11] LABS: Basophils # 0.1 10^3/uL (0.0-0.1); Basophils % 0.6 %; Eosinophils # 0.3 10^3/uL (0.0-0.8); Eosinophils % 3.5 %; Hematocrit 42.5 % (36-47); Lymphocytes % 23.2 %; Mean Corpuscular Hemoglobin 26.1 pg (27-33); Mean Corpuscular Volume 81.6 fl (85-98); Mean Platelet Volume 9.8 fL (7.4-10.4); Monocytes # 0.8 10^3/uL (0.2-0.9); Monocytes % 9.5 %; Neutrophils # 5.42 10^3/uL (1.8-7.7); Neutrophils % 62.5 %; Nucleated Red Blood Cells % 0 %; Platelet Count 261 10^3/cmm (157-399); Red Blood Count 5.21 10^6/uL (3.85-5.65); Red Cell Distribution Width 16.3 % (12.1-15.1); White Blood Count 8.66 10^3/uL (3.29-11.43)
[2023-11-11 17:22] LABS: INR 0.96 (0.8-1.2)
[2023-11-11 17:30] LABS: Alanine Aminotransferase 98 U/L (0-33); Alkaline Phosphatase 83 U/L (35-105); Anion Gap 14.3 (5-19); Aspartate Amino Transferase 101 U/L (0-32); Blood Urea Nitrogen 6 mg/dL (6-20); Calcium 9.1 mg/dL (8.5-10.5); Carbon Dioxide 24 mmol/L (22-29); Chloride 99 mmol/L (98-107); Globulin 2.6 g/dL (1.3-4.6); Glomerular Filtration Rate 135.3 mL/min (90-130); Glucose 194 mg/dL (65-115); Osmolality Calculated 279 mOsm/kg (285-295); Potassium 4.3 mmol/L (3.5-5.1); Sodium 133 mmol/L (136-145); Total Bilirubin 0.3 mg/dL (0.15-1.2); Total Protein 6.6 g/dL (6.6-8.7)
[2023-11-11 17:55] LABS: Troponin(5th) Baseline 12 ng/L (0-10)
--- NOTE | 2023-11-11 17:57 | USCV_ITS ---
Emily Jauregui Age: 43 Gender: F : 1980 Exam Date: 11/11/2023 20:00 Ordering Phys: Val Fields MD Technologist: KYREE [place] [facility] [place]ication: intermittent chest pain and SOB x 2 months. BP: 134 / 95 HR: 81 Rhythm: Sinus Technical Quality: Adequate MEASUREMENTS (Male / Female) Normal Values 2D ECHO LV Diastolic Diameter PLAX 4.9 cm 4.2 - 5.9 / 3.9 - 5.3 cm IVS Diastolic Thickness 1.4 cm 0.6 - 1.0 / 0.6 - 0.9 cm IVS Systolic Thickness 1.6 cm LVPW Diastolic Thickness 1.2 cm 0.6 - 1.0 / 0.6 - 0.9 cm LVPW Systolic Thickness 1.7 cm LVOT Diameter 2.1 cm LV Ejection Fraction 2D Teich 57.8 % LV Ejection Fraction MOD 2C 57.3 % LV Ejection Fraction 2C AL 55.9 % LA Diameter 3.4 cm Aorta at Sinotubular Diameter 2.8 cm IVC Diameter 1.1 cm M-MODE LA Ao Ratio MM 1.1 AV Cusp Separation MM 1.8 cm DOPPLER AV Peak Velocity 97.0 cm/s LVOT Peak Velocity 74.0 cm/s AV Area Cont Eq vti 3.4 cm squared AV Area Cont Eq pk 2.8 cm squared MV Peak Velocity 66.0 cm/s MV Area PHT 3.3 cm squared Mitral E to A Ratio 0.9 PV Peak Velocity 85.0 cm/s FINDINGS Left Ventricle Normal LV size with borderline low ejection fraction of 50 to 55%. Mild diffuse hypokinesia of the septum and the anteroseptal segment Right Ventricle The right ventricle is normal in size and function. Right Atrium The right atrium is normal in size. Left Atrium The left atrium is normal in size. Mitral Valve .no gross abnormalities noted Aortic Valve No gross abnormalities noted Tricuspid Valve No gross abnormalities noted Pulmonic Valve No gross abnormalities no Pericardium Normal pericardium without effusion. Aorta Normal ascending aorta dimension. IVC Normal inferior vena cava. CONCLUSIONS Normal LV size with borderline low ejection fraction of 50 to 55%. Mild diffuse hypokinesia of the septum and the anteroseptal segment. No gross valvular abnormalities Normal cardiac chamber sizes No pericardial effusion Technically somewhat difficult study No similar previous studies are available for comparison Dr Colette Clark MD FACC (Electronically Signed) Final Date: 11 November 2023 22:38 S
--- NOTE | 2023-11-11 19:11 | PM.CONSULT ---
Providers/Reason For Consult Consulting Physician/Specialty*: WARREN Clark MD/cardiology Reason for Consult*: Patient with chest pain and shortness of Requesting Physician: Dr Rodrigo Nick Attending Physician: Kaitlynn Nick MD Primary Care Provider: Alvaro Reeves DO History of Present Illness History of Present Illness Emily Jauregui is a 43 year old female with a history of SLE, pulmonary embolism, presents with complaints of shortness of breath, palpitations and chest pain. According the patient, she has been doing okay up until 2 months ago when she started noticing palpitations and shortness of breath especially after taking a shower. Since then the symptoms gradually progressed to the extent that even with any minimal activities, she gets pounding in the chest associated with shortness of breath, chest discomfort, bilateral arm heaviness and generalized weakness. The symptoms are limiting her activities. 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 Because of the symptoms, she stopped working. Apparently she never had this type of symptoms in the past. Even though she had shortness of breath with the pulmonary embolism, did not have the chest pain or the palpitations. She has no fever, chills or cough. She has been to the emergency room twice with these complaints. She had a CTA of the chest, chest x-ray and a stress test. The CTA did not show any evidence of pulmonary embolism. Chest x-ray also was unremarkable. Her Myocardial perfusion imaging revealed a small area of reversible and reversible defect in the inferolateral wall region suggestive of myocardial scarring with the possible preinfarction ischemia. The EKG with the Lexiscan infusion revealed some nonspecific diffuse ST-T changes Patient has no previous history for coronary artery disease, myocardial infarction or congestive heart failure. She was recently placed on metoprolol for the palpitations. She seems to have some improvement with the palpitations since then. She was on oral anticoagulation for almost a year following the pulmonary embolism. She subsequently she was taken off of this medication. She has been on fairly high-dose of steroids in the last 1 year. According to the patient, she may have gained around 70 pounds within the last 1 year. She has a strong family history for premature atherosclerotic heart disease. Her mother had a four-vessel coronary bypass surgery at the age of 45. Her maternal grandfather and grandmother had coronary interventions in their 40s?. Her mom's brother had a myocardial infarction in his 30s. No other relevant family history. She denies any smoking abuse, alcohol abuse or any substance abuse. Review of Systems Narrative: CONSTITUTIONAL: No fever or chills. Generalized weakness/fatigue. Weight gain of 70 pounds with in the last 1 year EYES: No blurring of vision or other visual disturbances lately. [] ENT: No hoarseness of voice, auditory disturbances or sore throat. [] CARDIOVASCULAR: As mentioned above. [] RESPIRATORY: No significant cough. [] GASTROINTESTINAL: No hematemesis or melena. [] GENITOURINARY: No dysuria or hematuria. [] INTEGUMENTARY: SLE NEURO: No transient ischemic attacks or amaurosis. [] PSYCHIATRIC: No history of psychosis or major depression. [] HEMATOLOGIC: No bleeding disorders or significant anemia. [] ENDOCRINE: No history of polyuria or polydipsia. [] MUSCULOSKELETAL: No recent joint pain or swelling. [] ALLERGY/IMMUNOLOGY: As mentioned above. [] Medications/Allergies Home Medications Medication Instructions Recorded Confirmed Last Taken Type acetaminophen 500 mg tablet 500 - 1,000 mg PO PRN 12/09/19 11/11/23 Unknown History (Tylenol Extra Strength) hydroxyzine HCl 25 mg tablet 25 mg PO QID PRN Anxiety 12/09/19 11/11/23 11/11/23 12:00 History omeprazole 40 mg capsule,delayed 40 mg PO QAM 03/05/22 11/11/23 11/11/23 12:00 History release diclofenac sodium 75 mg See Rx Instructions .Route 06/03/23 11/11/23 Unknown Rx tablet,delayed release .COMPLEX #60 tabs metoclopramide HCl 10 mg tablet See Rx Instructions .Route 06/03/23 11/11/23 Unknown Rx .COMPLEX #30 tabs azathioprine 50 mg tablet See Rx Instructions PO .COMPLEX 09/03/23 11/11/23 11/11/23 12:00 Rx #90 tabs prednisone 20 mg tablet See Rx Instructions PO .COMPLEX 09/03/23 11/11/23 Unknown Rx PRN joint pain flare #30 tabs metoprolol tartrate 50 mg tablet 50 mg PO BID 11/11/23 11/11/23 11/11/23 12:00 History Allergies Allergy/AdvReac Type Severity Reaction Status Date / Time NSAIDS (Non-Steroidal Allergy Intermediate Unknown Verified 11/11/23 14:53 Anti-Inflamma leflunomide Allergy ADR-Vomitin Verified 11/11/23 14:53 g sulfasalazine AdvReac Severe ADR-Vomitin Verified 11/11/23 14:53 g hydroxychloroquine AdvReac Intermediate N/V Verified 11/11/23 14:53 stomach pain c diarrhea PFSH Acute PFSH: Medical History SLE (systemic lupus erythematosus related syndrome) Inflammatory arthritis Undifferentiated connective tissue disease Immunization counseling High risk medication use Joint pain Positive ARDEN (antinuclear antibody) Pulmonary embolism Anxiety Depression Surgical History H/O lumpectomy Tubal ligation status History of cholecystectomy Family History Mother Atrial fibrillation Congestive heart failure (CHF) Grandmother Congestive heart failure (CHF) Sudden cardiac Other CAD (coronary artery disease) Cancer Hyperlipidemia Hypertension Denies family history of Rheumatoid arthritis Diabetes Lupus Anemia Aneurysm TIA (transient ischemic attack) Hyperthyroidism Hypothyroidism Chronic kidney disease (CKD) Congenital heart disease Carotid artery disease Lung disease Cardiomyopathy Parkinson disease Stroke Social History Smoking and tobacco/nicotine status: never used tobacco/nicotine Quit status (tobacco/nicotine): has quit using Year quit tobacco: 2020 - PPD x 5 Years Second hand smoke exposure: Yes Alcohol intake: never Substance/Drug Use: never Lives independently: Yes Household members: spouse Marital status: Current occupational status: unemployed Do you think of yourself as: Straight/Heterosexual Current gender identity: Female Female Reproductive History: Date of last menstrual period: 11/11/23 Vitals/I&O/Wt Last Vital Signs Temp 97.9 F 11/11/23 15:59 Pulse 81 11/11/23 19:00 Resp 18 11/11/23 19:00 BP 165/101 11/11/23 19:00 Pulse Ox 97 11/11/23 19:00 O2 Del Method Room Air 11/11/23 18:25 Weight last 48 hrs Weight 260 lb Physical Exam Narrative: GENERAL: The patient is alert and oriented times three. Not in any acute distress. HEENT: No significant pallor, icterus or lymphadenopathy.Oral cavity: There are no mucous membrane lesions. NECK: Trachea appears to be central. No masses noted. No JVD or thyromegaly appreciated. RESPIRATORY: Chest is symmetrical. No intercostals muscle retraction or any accessory muscle activation. There is no chest wall tenderness. Breath sounds are heard bilaterally. No rales or rhonchi heard. No evidence of any consolidation. BREASTS: Deferred. HEART: The heart sounds are normal. No S3 or S4. No significant murmurs. No pericardial rub ABDOMEN: No vessel pulsations or distention. No tenderness. No organomegaly appreciated. Bowel sounds are normally heard. : Deferred. RECTAL: Deferred. LYMPHATIC: No lymphadenopathy noted in the neck. EXTREMITIES: No edema or cyanosis. No clubbing. MUSCULOSKELETAL: No acute joint deformities or swelling SKIN: There are no significant rashes or ecchymosis NEUROPSYCHIATRIC: The patient is alert and oriented x3. Appears to be in a good mood. No tremors or rigidity noted. Data 11/12/23 04:39 11/12/23 04:39 Other Labs: Laboratory Last Values WBC 8.66 10^3/uL (3.29-11.43) 11/11/23 16:58 RBC 5.21 10^6/uL (3.85-5.65) 11/11/23 16:58 Hgb 13.60 g/dL (11.27-16.99) 11/11/23 16:58 Hct 42.5 % (36-47) 11/11/23 16:58 MCV 81.6 fl (85-98) L 11/11/23 16:58 MCH 26.1 pg (27-33) L 11/11/23 16:58 MCHC 32.0 g/dL (30-55) 11/11/23 16:58 RDW 16.3 % (12.1-15.1) H 11/11/23 16:58 Plt Count 261 10^3/cmm (157-399) 11/11/23 16:58 MPV 9.8 fL (7.4-10.4) 11/11/23 16:58 Neut % (Auto) 62.5 % 11/11/23 16:58 Lymph % (Auto) 23.2 % 11/11/23 16:58 [place] % (Auto) 9.5 % 11/11/23 16:58 Eos % (Auto) 3.5 % 11/11/23 16:58 Baso % (Auto) 0.6 % 11/11/23 16:58 Neut # (Auto) 5.42 10^3/uL (1.8-7.7) 11/11/23 16:58 Lymph # (Auto) 2.0 10^3/uL (0.8-4.8) 11/11/23 16:58 [place] # (Auto) 0.8 10^3/uL (0.2-0.9) 11/11/23 16:58 Eos # (Auto) 0.3 10^3/uL (0.0-0.8) 11/11/23 16:58 Baso # (Auto) 0.1 10^3/uL (0.0-0.1) 11/11/23 16:58 Nucleated RBC % (auto) 0 % 11/11/23 16:58 Nucleated RBCs # 0.0 /100WBC 11/11/23 16:58 PT 13.10 SECONDS (12.1-14.9) 11/11/23 16:58 INR 0.96 (0.8-1.2) 11/11/23 16:58 D-Dimer 0.30 ug/mLFEU (0-0.59) 11/11/23 16:58 Sodium 133 mmol/L (136-145) L 11/11/23 16:58 Potassium 4.3 mmol/L (3.5-5.1) 11/11/23 16:58 Chloride 99 mmol/L (98-107) 11/11/23 16:58 Carbon Dioxide 24 mmol/L (22-29) 11/11/23 16:58 Anion Gap 14.3 (5-19) 11/11/23 16:58 BUN 6 mg/dL (6-20) 11/11/23 16:58 Creatinine 0.5 mg/dL (0.5-0.9) 11/11/23 16:58 GFR Calculation 135.3 mL/min (90-130) H 11/11/23 16:58 Glucose 194 mg/dL (65-115) H 11/11/23 16:58 Calculated Osmolality 279 mOsm/kg (285-295) L 11/11/23 16:58 Calcium 9.1 mg/dL (8.5-10.5) 11/11/23 16:58 Total Bilirubin 0.3 mg/dL (0.15-1.2) 11/11/23 16:58 AST 101 U/L (0-32) H 11/11/23 16:58 ALT 98 U/L (0-33) H 11/11/23 16:58 Alkaline Phosphatase 83 U/L (35-105) 11/11/23 16:58 Troponin T Baseline 12 ng/L (0-10) H 11/11/23 16:58 Total Protein 6.6 g/dL (6.6-8.7) 11/11/23 16:58 Albumin 4.0 g/dL (3.5-5.2) 11/11/23 16:58 Globulin 2.6 g/dL (1.3-4.6) 11/11/23 16:58 Other data: EKG showing normal sinus rhythm with a normal ST's Myocardial perfusion imaging on 11/05/2023 .1. Small area of attenuation artifact versus prior infarct with madeline-infarct ischemia seen in left circumflex artery territory. Clinical correlation required. 2. LV systolic function is normal. A&P Assessment and plan (1) Unstable angina pectoris due to coronary arteriosclerosis: The patient's symptoms are suggestive of unstable angina. However the EKG is unremarkable. The Myocardial perfusion imaging revealed small area of reversible and reversible defect in the inferolateral region, suggesting ischemia in the distribution of the left circumflex artery (2) Elevated blood pressure reading: May be treated with beta-edouard and nitrates (3) Pulmonary embolism: Has not had any recurrence of PE based on the CTA. Qualifiers: Acute cor pulmonale presence: without acute cor pulmonale Chronicity: acute Pulmonary embolism type: unspecified Qualified Code(s): I26.99 - Other pulmonary embolism without acute cor pulmonale (4) DEJESUS (dyspnea on exertion): Most likely related to the dysfunction/ischemia. An echocardiogram would be helpful to evaluate LV function and rule out any other pathology. (5) Palpitations: This patient seems to have sinus tachycardia with activities. Possibility of LV dysfunction/cardiac arrhythmia are considerations. Patient needs to be closely monitored on telemetry. (6) Family history of premature coronary heart disease: Patient has a strong family history for premature atherosclerotic heart disease. We may go ahead and do a lipid profile. Plan Based on the results of the above tests and the patient's clinical progress, further recommendations will be made. In view of the patient's history of patient's strong family history for premature atherosclerotic heart disease and the abnormal Myocardial perfusion imaging, in order to further evaluate the coronary status, a cardiac arrhythmia would be appropriate. This was discussed with the patient and her in detail which is understood well After reviewing the echocardiogram, final decision will be made Thank you for the opportunity to evaluate this patient and make these recommendations Consult Attestations Medical Necessity Statement: Patient requires continued hospital stay for close monitoring and further management Coding Level of Care Code Acute Code for Chg Fwd Diagnoses Unstable angina pectoris due to coronary arteriosclerosis I25.110 Elevated blood pressure reading R03.0 Acute pulmonary embolism without acute cor pulmonale, unspecified pulmonary embolism type I26.99 Acute cor pulmonale presence: without acute cor pulmonale Chronicity: acute Pulmonary embolism type: unspecified DEJESUS (dyspnea on exertion) R06.09 Palpitations R00.2 Family history of premature coronary heart disease Z82.49
[2023-11-11 19:28] LABS: Troponin 5 2HR 7.42 ng/L (0-10)
--- NOTE | 2023-11-11 19:28 | PC.NURSE ---
New med orders for fluids, benadryl, and aspirin were placed by Dr. Clark. Dr. Clark was contacted and confirmed he wanted meds to be given prior to angio in the morning. Meds were re-timed by pharmacy due to system not allowing me to re-time meds.
[2023-11-11 19:29] LABS: Troponin 5 2HR Delta -4.58 ABS# (0-10)
[2023-11-11 19:40] LABS: NT Pro B Type Natriuretic Pept < 36 pg/mL (0-125)
--- NOTE | 2023-11-11 20:21 | P.HP_ITS ---
Providers/Chief Complaint 2 Admitting Physician: Kaitlynn Nick MD Primary Care Provider: Alvaro Reeves DO Chief Complaint: Chest pains History of Present Illness Emily Jauregui is a 43 year old female with past medical history of hypertension, bilateral pulmonary embolism not on anticoagulation anymore(finished course of Eliquis for 6 months), recent diagnosis of lupus on azathioprine and follows up with rheumatology as an outpatient was sent into the ER today from cardiology office. As per the patient and her at bedside she has been having concerns for chest pain, chest pressure on minimal exertion along with shortness of breath, palpitations and dizziness getting worse over the last 2 months. Patient has had multiple diagnostic studies done for the same in last 2 months including CTA which showed no pulmonary embolism, Lexiscan stress test on 11/04 which was questionable of attenuation artifact versus prior infarct with mild madeline-infarct ischemia in LCx territory along with echocardiogram which showed mild regional wall motion abnormality at apex and IVS. As per patient her heart rate goes up to 160s which she is able to monitor through her pulse oximetry at home on minimal exertion including taking a shower associated with shortness of breath and dizziness with her saturations going down to mid 80s. Patient denies any history of smoking but gives significant family history of quadruple bypass in her mother at the age of mid 40s. Currently patient is chest pain-free, slightly anxious laying comfortably in bed though saturating well on room air Review of Systems 2 General: Reports: 10 or more systems reviewed and unremarkable except in HPI and below Const: Denies: fever(s), chills, body aches, change in appetite, change in weight, malaise, night sweats, diaphoresis, change in sleep pattern, daytime sleepiness or snoring Eyes: Denies: change in vision, blurry vision, photophobia, eye discomfort or eye discharge ENMT: Denies: throat pain, enlarged tonsils, hoarseness, mouth pain, oral sores, dry mouth, tinnitus, nasal congestion or post nasal drip Card: Denies: chest pain, palpitations, irregular heart rhythm, edema, swelling of feet/ankles, lightheadedness, syncope, pre-syncope, dyspnea on exertion, orthopnea, leg pain with exertion or acrocyanosis Resp: Denies: dyspnea, productive cough, non-productive cough, wheezing, stridor, pain on inspiration, change in phlegm color, hemoptysis or chest congestion GI: Denies: abdominal pain, nausea, vomiting, hematemesis, coffee ground emesis, dysphagia, heartburn, diarrhea, constipation, bloating, GI cramping, change in bowel habits, pain on defecation, hematochezia or melena : Denies: flank pain, dysuria, urinary frequency, urinary urgency, urinary hesitancy, nocturia or hematuria Musc: Denies: neck pain, back pain, extremity pain, joint pain, joint swelling, joint redness, joint stiffness or limited range of motion Neuro: Denies: headache(s), numbness in extremities, weakness in extremities, sensory changes, lack of coordination, difficulty walking, frequent falls, dizziness, vertigo, confusion, Slurred speech present, difficulty communicating thoughts or seizure-like activity Psych: Denies: anxiety, depression, mood swings, panic attacks, hopelessness or irritability Endo: Denies: polyuria, polydipsia, tired all the time, cold intolerance, excessive sweating, flushing or heat intolerance Adryan/Lymph: Denies: easy bruising or easy bleeding All/Imm: Denies: tongue swelling, facial swelling or acute wheezing Medications/Allergies Home Medications Medication Instructions Recorded Confirmed Last Taken Type acetaminophen 500 mg tablet 500 - 1,000 mg PO PRN 12/09/19 11/11/23 Unknown History (Tylenol Extra Strength) hydroxyzine HCl 25 mg tablet 25 mg PO QID PRN Anxiety 12/09/19 11/11/23 11/11/23 12:00 History omeprazole 40 mg capsule,delayed 40 mg PO QAM 03/05/22 11/11/23 11/11/23 12:00 History release diclofenac sodium 75 mg See Rx Instructions .Route 06/03/23 11/11/23 Unknown Rx tablet,delayed release .COMPLEX #60 tabs metoclopramide HCl 10 mg tablet See Rx Instructions .Route 06/03/23 11/11/23 Unknown Rx .COMPLEX #30 tabs azathioprine 50 mg tablet See Rx Instructions PO .COMPLEX 09/03/23 11/11/23 11/11/23 12:00 Rx #90 tabs prednisone 20 mg tablet See Rx Instructions PO .COMPLEX 09/03/23 11/11/23 Unknown Rx PRN joint pain flare #30 tabs metoprolol tartrate 50 mg tablet 50 mg PO BID 11/11/23 11/11/23 11/11/23 12:00 History Allergies Allergy/AdvReac Type Severity Reaction Status Date / Time NSAIDS (Non-Steroidal Allergy Intermediate Unknown Verified 11/11/23 14:53 Anti-Inflamma leflunomide Allergy ADR-Vomitin Verified 11/11/23 14:53 g sulfasalazine AdvReac Severe ADR-Vomitin Verified 11/11/23 14:53 g hydroxychloroquine AdvReac Intermediate N/V Verified 11/11/23 14:53 stomach pain c diarrhea PFSH Acute 2 PFSH: Medical History SLE (systemic lupus erythematosus related syndrome) Inflammatory arthritis Undifferentiated connective tissue disease Immunization counseling High risk medication use Joint pain Positive ARDEN (antinuclear antibody) Pulmonary embolism Anxiety Depression Surgical History H/O lumpectomy Tubal ligation status History of cholecystectomy Family History Mother Atrial fibrillation Congestive heart failure (CHF) Grandmother Congestive heart failure (CHF) Sudden cardiac Other CAD (coronary artery disease) Cancer Hyperlipidemia Hypertension Denies family history of Rheumatoid arthritis Diabetes Lupus Anemia Aneurysm TIA (transient ischemic attack) Hyperthyroidism Hypothyroidism Chronic kidney disease (CKD) Congenital heart disease Carotid artery disease Lung disease Cardiomyopathy Parkinson disease Stroke Social History Smoking and tobacco/nicotine status: never used tobacco/nicotine Quit status (tobacco/nicotine): has quit using Year quit tobacco: 2020 - PPD x 5 Years Second hand smoke exposure: Yes Alcohol intake: never Substance/Drug Use: never Lives independently: Yes Household members: spouse Marital status: Current occupational status: unemployed Do you think of yourself as: Straight/Heterosexual Current gender identity: Female Female Reproductive History: Date of last menstrual period: 11/11/23 Vitals/I&O/Wt Last Vital Signs Temp 97.9 F 11/11/23 15:59 Pulse 80 11/11/23 20:15 Resp 17 11/11/23 20:15 BP 126/77 11/11/23 20:15 Pulse Ox 96 11/11/23 20:15 O2 Del Method Room Air 11/11/23 18:25 Weight last 48 hrs Weight 117.934 kg Physical Exam 2 Narrative: General: Ill mild distress from chest heaviness, AO x 3, anxious HEENT: PERRLA, pupils bilaterally equal and reactive Chest: Normal vesicular breath sounds, no added sounds, mildly decreased air entry bilaterally which improves with taking a deep breath, mild tachypnea CVS: S1-S2 regular, no murmurs, no tachycardia, no gallops, no rubs Abdomen: Soft, nontender, no organomegaly, bowel sounds present Neuro: No focal deficits, no facial deformity, AO x3, power 5/5 in all limbs Data 11/12/23 04:39 11/12/23 04:39 A&P Assessment and plan (1) Unstable angina pectoris due to coronary arteriosclerosis: (2) Chest pain: (3) Elevated blood pressure reading: (4) Family history of premature coronary heart disease: (5) Palpitations: (6) DEJESUS (dyspnea on exertion): (7) Pulmonary embolism: Qualifiers: Pulmonary embolism type: unspecified Chronicity: acute Acute cor pulmonale presence: without acute cor pulmonale Qualified Code(s): I26.99 - Other pulmonary embolism without acute cor pulmonale (8) SLE (systemic lupus erythematosus related syndrome): Plan Patient does have significant family history along with symptoms concerning for worsening unstable angina along with questionable Lexiscan stress test within the last 1 week with the possibility of madeline-infarct ischemia in LCx territory. Echocardiogram done but not read yet. Appreciate cardiology recommendations. Cycle troponins. If positive will plan for full dose Lovenox. Aspirin full dose one-time followed by 81 mg daily. Check A1c, lipid panel. N.p.o. after midnight for possible cardiac angiogram. Nitro as needed for chest pressure. Goal blood pressure less than 140/90 mmHg. For now continue with metoprolol at 25 mg twice daily. Uptitrate blood pressure medications accordingly. History of pulmonary embolism: Has history of bilateral pulmonary embolism. Was treated with full dose Eliquis for 6 months. Later was diagnosed of lupus. Patient would benefit from long-term anticoagulation. For now D-dimer negative. CTA done recently negative. Tachycardia/dyspnea on exertion: Could be in setting of possible unstable angina. Await echocardiogram. D-dimer negative. Denies any history of COPD. Oxygen supplementation keeping saturation over 90%. Full code Cardiac diet, n.p.o. after midnight Heparin 5000-12 hourly for DVT prophylaxis Protonix for PUD prophylaxis. Attestations 2 Medical Necessity Statement*: Admission under observation for management and further workup for unstable angina in a patient with significant family history of CAD, personal history of lupus Diagnoses Unstable angina pectoris due to coronary arteriosclerosis I25.110 Chest pain R07.9 Elevated blood pressure reading R03.0 Family history of premature coronary heart disease Z82.49 Palpitations R00.2 DEJESUS (dyspnea on exertion) R06.09 Acute pulmonary embolism without acute cor pulmonale, unspecified pulmonary embolism type I26.99 Pulmonary embolism type: unspecified Chronicity: acute Acute cor pulmonale presence: without acute cor pulmonale SLE (systemic lupus erythematosus related syndrome) M32.9
[2023-11-11] MEDS: enoxaparin 40 mg/0.4 mL Syringe SUBCUT (20:58)
[2023-11-11 20:59] LABS: Thyroid Stimulating Hormone 1.52 uIU/mL (0.27-4.20)
[2023-11-11 21:25] LABS: Add Urine Culture? Yes; Add Urine Microscopic? YES; Bacteria Urine TRACE /hpf; Bilirubin Urine Neg (Negative); Blood Urine 3+ (Negative); Glucose Urine UA Trace (Normal); Ketones Urine Negative (Negative); Leukocyte Esterase Urine Negative (Negative); Mucus Urine 2+ /hpf; Nitrate Urine Negative (Negative); Protein Urine Neg (Negative); RBC Urine 50-80 /hpf (0-2); Urine Appearance Hazy (CLEAR); Urine Color Yellow (Yellow); Urobilinogen Urine Neg (Negative); pH Urine 5 (5-7)
[2023-11-11 22:58] LABS: Chol HDL Ratio 2.26 mg/dL (0.0-4.40); Cholesterol 120 mg/dL (0-200); HDL Cholesterol 53 mg/dL (60-100); LDL Cholesterol Calculated 40 mg/dL (50-129); LDL HDL Ratio 0.75 RATIO (0.00-3.22); Triglycerides 133 mg/dL (0-150)
[2023-11-12] VITALS (39 sets, daily range): BP systolic 106–174; BP diastolic 75–115; PULSE 85–113; RESP 16–35; TEMP 36.9; O2SAT 92–97
[2023-11-12] MEDS: hyDRALAzine 20 mg/mL INJ 1 mL 5 MG IVP (00:26)
[2023-11-12 05:45] LABS: Basophils # 0.1 10^3/uL (0.0-0.1); Basophils % 0.7 %; Eosinophils # 0.3 10^3/uL (0.0-0.8); Eosinophils % 3.6 %; Hematocrit 40.1 % (36-47); Lymphocytes # 2.4 10^3/uL (0.8-4.8); Lymphocytes % 32.6 %; Mean Corpuscular HGB Conc 32.4 g/dL (30-55); Mean Corpuscular Hemoglobin 26.8 pg (27-33); Mean Corpuscular Volume 82.7 fl (85-98); Mean Platelet Volume 9.8 fL (7.4-10.4); Monocytes # 0.8 10^3/uL (0.2-0.9); Monocytes % 10.5 %; Neutrophils # 3.79 10^3/uL (1.8-7.7); Neutrophils % 51.9 %; Nucleated Red Blood Cells % 0 %; Platelet Count 247 10^3/cmm (157-399); Red Blood Count 4.85 10^6/uL (3.85-5.65); Red Cell Distribution Width 16.7 % (12.1-15.1)
[2023-11-12 05:59] LABS: Estmated Average Glucose 174; Hemoglobin A1C 7.7 % (4.0-6.0)
[2023-11-12 06:05] LABS: Alanine Aminotransferase 84 U/L (0-33); Albumin Level 3.7 g/dL (3.5-5.2); Alkaline Phosphatase 73 U/L (35-105); Anion Gap 15.6 (5-19); Aspartate Amino Transferase 80 U/L (0-32); Blood Urea Nitrogen 7 mg/dL (6-20); Calcium 8.7 mg/dL (8.5-10.5); Carbon Dioxide 23 mmol/L (22-29); Chloride 102 mmol/L (98-107); Globulin 2.3 g/dL (1.3-4.6); Glomerular Filtration Rate 135.3 mL/min (90-130); Glucose 165 mg/dL (65-115); Magnesium 1.9 mg/dL (1.7-2.3); Osmolality Calculated 286 mOsm/kg (285-295); Phosphorus 3.5 mg/dL (2.5-4.5); Potassium 3.6 mmol/L (3.5-5.1); Sodium 137 mmol/L (136-145); Total Bilirubin 0.3 mg/dL (0.15-1.2)
[2023-11-12] MEDS: sodium chloride 0.9% 1,000 ML 50 ML IV (06:29)
--- NOTE | 2023-11-12 06:29 | XACV_ITS ---
Exam Room: [facility] Ht: 157 cm Wt: 118 kg BSA: 2.34 m2 Gender: Female : 1980 Any Known Allergies: Other Exam Priority: Routine Procedure(s): Procedure Description: Diagnostic procedure Procedure Description: Left Heart Catheterization Procedure Description: Left ventriculography Procedure Description: Coronary Angiography Eduardo HADLEY; Diagnostic Cath Status: Urgent Diagnostic Findings * The left main an extremely short vessel which bifurcates the left anterior descending artery and the circumflex artery. * The left anterior sending artery is a medium caliber vessel which appears to wraparound the LV apex. Mild diffuse intimal realities are noted in the mid segment of the artery. It gives off a high diagonal branch with no significant stenotic lesions.. * The left circumflex artery is a medium caliber vessel which was found to have no significant stenotic lesions. * The right coronary artery is a medium caliber dominant vessel which also was found no significant stenotic lesions. Conclusions 1. 43-year-old white female with a history of lupus, pulmonary embolism, strong family history for premature atherosclerotic heart disease, is presenting with complaints of chest pain, palpitation and shortness of breath. She had a Myocardial perfusion imaging which revealed a small area of reversible and reversible defect in the inferolateral region, suggestive of possible myocardial scarring with the preinfarction ischemia. In view of the patient's ongoing worsening symptoms, in order to further evaluate the coronary status, a cardiac catheterization was recommended. Patient underwent left heart catheterization with left and right coronary angiogram and LV angiogram today. The findings are as follows. 2. 1. Short left main #2 minimal intimal irregularities in the left anterior descending artery. #3 no significant lesions in the right coronary artery or circumflex artery. #4 slightly elevated LVEDP of 17 mmHg. #5 normal LV ejection fraction of 60%. Diagnostic RX Recommendation: medical therapy and/or counseling LV EDP: 17 mmHg Ventriculography Ejection Fraction: 55.0 % Left Ventriculography Findings: * The LV gram was performed in the RAYMUNDO position. The LV cavity appears to be of normal size. LV ejection fraction was around 60%. No filling defects are noted. No wall motion abnormalities. Pressures Phase:Rest AO : 97 / 70 ( 80 ) @ 8:33:00 AM 81 / 64 ( 72 ) @ 8:34:00 AM 93 / 74 ( 83 ) @ 8:37:00 AM 141 / 87 ( 103 ) @ 8:42:00 AM 152 / 71 ( 98 ) @ 8:42:00 AM LV : 149 / 1 / 17 @ 8:41:00 AM 156 / 5 / 26 @ 8:42:00 AM 156 / 4 / 25 @ 8:42:00 AM Valves Phase:DefaultPhase AV : 22.0 @ 7:47:57 AM AV Mean Gradient: 19.0 @ 7:47:57 AM 19.0 @ 7:47:57 AM Clinical Evaluation EBL: 5mL-10mL Procedural Details Procedure Consent Obtained. Current Diagnosis : Chest Pain. Pre-Procedure Time Out. Identified patient by full name and date of as verbalized by the patient/guarantor. Does the consent match the physician's order: Yes. Accurate & Complete Informed Consent: Yes. Inpatient/Outpatient History & Physical on Chart: Yes. If H&P is completed, is and addenduem needed: No; If yes, is the addendum complete: N/A. Visualize and Verify Site with Patient/Guarantor: N/A. Relevant Radiology Images available: Yes. Pre-op teaching completed and patient verbalized understanding. The risks, benefits, and alternatives of sedation and/or procedure were discussed by physician. The patient agrees to continue. Procedure started. [facility] Clinical Fraility Score: 3: Managing Well. Leaf Stripper Indications: Worsening Angina. Chest Pain Symptom Assessment: Typical Angina Symptoms. Correct patient, site and procedure confirmed by cath team. Current diagnosis: Chest Pain. PERRLA. Strong, equal hand director investment banking bilaterally. Lungs clear x 5 lobes. IV Site on Arrival: 18 gauge in the left anticubital. IV Fluids: 0.9% NaCl at KVO. 0 mL infused prior to laboratory mechanical technician. Oxygen started at 2liters/min via nasal canula. right groin was prepped with chloroprep then draped in the usual sterile fashion. right radial was prepped with chloroprep then draped in the usual sterile fashion. Baseline sample Acquired. HR: 0 BPM. Vital chart was stopped. Physician arrived. Baseline sample Acquired. HR: 104 BPM. Physician scrubbed in. Immediate Pre-Procedure Time Out. Correct Patient: Yes; Correct Procedure: Yes; Correct Site: Yes; Correct Patient Position: Yes; Correct Supplies: Yes; Dried Flammable Prep: Yes; Blood Products Available: N/A;. Lidocaine 1% infiltrated to the right radial. Arterial access obtained. Wire unable to advance. Wire and needle removed. Arterial access obtained. A 5 vincentian Reggie catheter in over wire. Multiple views taken of left coronary artery. Catheter redirected to the RCA. Multiple views taken of right coronary artery. Catheter removed over the exchange wire. A 5 vincentian Angled Pig catheter in over wire. EDP Sample taken: LV 149/1,17; HR: 115 BPM; SpO2: 94%. LV gram performed in RAYMUNDO @ 10 mL/second for a total of 30 mL. EDP Sample taken: LV 156/5,26; HR: 118 BPM; SpO2: 94%. Pullback taken: LV 156/4,25; AO 141/87(103); Mean: 19mmHg, Peak to Peak: 22mmHg, SEP: 24sec/min; HR: 116 BPM; SpO2: 94%. Catheter removed over the exchange wire. A TR Band was successful obtaining hemostatsis at the Right Radial artery insertion site. Vital chart was stopped. Physician scrubbed out. Post Procedure: Pulses reassessed and unchanged. PERRLA. Strong, equal hand director investment banking bilaterally. No VTE prophylaxis required. Medication's Wasted: Nitro = 49.8 mg. Medication's Wasted: Heparin = 1000 units. Total IV fluids: 300 mL. Post-op diagnosis: Normal Coronaries. Complications: None. Estimated blood loss: 5mL-10mL. Responsiveness - Normal response to verbal stimuli; alert and oriented, PERRLA. Airway - Unaffected, no intervention required; spontaneous ventilation. Circulation: W/N/L, pulses unchanged. Nausea/Vomiting: No. Procedure completed. Patient transferred by wheelchair to CPRU. Access Site Site: Right Radial artery Sheath Size: 6 Fr Hemostasis Method: TR Band Hemostasis Success: Successful Procedure Medications Start: 7:11 AM Stop: 7:11 AM Medication: Versed Amount: 1 mg Route: I.V. Start: 7:13 AM Stop: 7:13 AM Medication: Fentanyl Amount: 25 mcg Route: I.V. Start: 7:17 AM Stop: 7:17 AM Medication: Benadryl Amount: 25 mg Route: I.V. Start: 7:19 AM Stop: 7:19 AM Medication: Versed Amount: 1 mg Route: I.V. Start: 7:25 AM Stop: 7:25 AM Medication: Fentanyl Amount: 25 mcg Route: I.V. Start: 7:29 AM Stop: 7:29 AM Medication: Nitrogylcerin Amount: 100 mcg Route: I.A. Start: 7:31 AM Stop: 7:31 AM Medication: Verapamil Amount: 5 mg Route: I.A. Start: 7:32 AM Stop: 7:32 AM Medication: Nitrogylcerin Amount: 200 mcg Route: I.A. Start: 7:33 AM Stop: 7:33 AM Medication: Versed Amount: 1 mg Route: I.V. Start: 7:33 AM Stop: 7:33 AM Medication: Heparin Amount: 5000 units Route: I.V. Start: 7:39 AM Stop: 7:39 AM Medication: Nitrogylcerin Amount: 200 mcg Route: I.A. Start: 7:39 AM Stop: 7:39 AM Medication: 0.9% Saline Amount: 250 ml Route: I.V. bolus I, the attending physician, have reviewed and verified all procedure medications. Yes, all medications given per verbal order History/Risk Factors Hypertension: No Dyslipidemia: No Peripheral Arterial Disease (PAD): No Myocardial Infarction (ND): No Obesity: No Renal Disease: No Tobacco Use: Never Prior Interventions PCI: No CABG: No Valve Surgery: No Report Signatures Finalized by Dr Colette Clark MD [facility] on 11/12/2023 10:17 PM
[2023-11-12 06:30] LABS: Chol HDL Ratio 2.77 mg/dL (0.0-4.40); Cholesterol 108 mg/dL (0-200); HDL Cholesterol 39 mg/dL (60-100); LDL Cholesterol Calculated 35 mg/dL (50-129); Triglycerides 168 mg/dL (0-150)
--- NOTE | 2023-11-12 07:03 | W.PM.OPSUD ---
Surgery/Procedure H&P Update DATE OF PROCEDURE: November 12, 2023 DATE H&P PERFORMED: 11/11/23 H&P UPDATE INFORMATION: I have reviewed H&P completed within last 30 days, I have examined patient prior to procedure and No changes to prior documentation PREOP DIAGNOSIS: suspected ASHD PRIMARY INDICATION FOR PROCEDURE: Unstable anginal symptoms/abnormal stress test/abnormal echocardiogram PLANNED PROCEDURE: Left heart catheterization with left and right coronary angiogram and possible PCI PATIENT REASSESSED PRIOR TO SEDATION, WITH NO CHANGE NOTED: Yes PHYSICAL EXAM: alert, oriented x 3, clear to auscultation bilaterally and regular rate & rhythm AIRWAY EVAL/ANESTHESIA PLAN: normal airway, see other exam findings, ASA III, Monitored Anesthesia, Local Anesthesia, Risks, benefits & alternatives of sedation and/or procedure discussed and Patient agrees to continue as planned
--- NOTE | 2023-11-12 08:26 | P.PN_ITS ---
Subjective 2 Subjective: Patient is feeling better. The enzymes are negative for myocardial so far. Echocardiogram revealed some wall motion abnormalities in the anteroseptal region. Episodes of sinus tachycardia on the monitor. Medications: Medication Review Details: Current Medications Acetaminophen (Acetaminophen 325 Mg Tablet) 650 mg PO Q6H PRN PRN Reason: Mild/Mod Pain Or Temp >/= 101 Al Hydrox/Mg Hydrox/Simethicone (Nqpe-Onf-Tzdirbwzd-Aj 30 Ml Udc) 30 ml PO Q15M PRN PRN Reason: INDIGESTION Atropine Sulfate (Atropine 1 Mg/Ml Sdv 1 Ml) 0.5 mg IVP PRN PRN PRN Reason: Symptomatic bradycardia Bisacodyl (Bisacodyl 5 Mg Tablet) 10 mg PO DAILY PRN; Protocol PRN Reason: Constipation (see protocol) Enoxaparin Sodium (Enoxaparin 40 Mg/0.4 Ml Syringe) 40 mg SUBCUT Q24H COUNTS INCLUDE 234 BEDS AT THE [facility] Last Admin: 11/11/23 20:58 Dose: 40 mg Sodium Chloride (Sodium Chloride 0.9%) 1,000 mls @ 50 mls/hr IV .Q20H ONE Stop: 11/13/23 02:59 Last Admin: 11/12/23 06:29 Dose: 50 mls/hr Isosorbide Mononitrate (Isosorbide Mononitrate Er 30 Mg Tablet) 30 mg PO DAILY COUNTS INCLUDE 234 BEDS AT THE [facility] Lactulose (Lactulose Oral Liq 20 Gm/30 Ml Udc) 10 gm PO DAILY PRN; Protocol PRN Reason: Constipation (see protocol) Lisinopril (Lisinopril 10 Mg Tablet) 10 mg PO DAILY COUNTS INCLUDE 234 BEDS AT THE [facility] Magnesium Hydroxide (Magnesium Hydroxide 30 Ml Udc) 30 ml PO DAILY PRN; Protocol PRN Reason: Constipation (see protocol) Metoprolol Tartrate (Metoprolol Tartrate 25 Mg Tablet) 12.5 mg PO BID@0900,2100 COUNTS INCLUDE 234 BEDS AT THE [facility] Morphine Sulfate (Morphine 4 Mg/Ml Sdv 1 Ml) 2 mg IVP Q4H PRN PRN Reason: SEVERE PAIN Naloxone HCl (Naloxone 0.4 Mg/Ml Sdv) 0.1 mg IVP Q2M PRN PRN Reason: RESPIRATORY RATE < 8/MIN Nitroglycerin (Nitroglycerin 0.4 Mg Sublingual Tablet) 0.4 mg SUBLINGUAL Q5M PRN PRN Reason: CHEST PAIN Ondansetron HCl (Ondansetron 2 Mg/Ml Sdv 2 Ml) 4 mg IVP Q8H PRN PRN Reason: vomiting, or N/V if npo Pantoprazole Sodium (Pantoprazole Dr 40 Mg Tablet) 40 mg PO DAILY CORNELIA Temazepam (Temazepam 15 Mg Capsule) 15 mg PO BEDTIME PRN PRN Reason: INSOMNIA Vitals/I&O/Wt Last Vital Signs Temp 98.4 F 11/12/23 00:00 Pulse 93 11/12/23 08:21 Resp 19 H 11/12/23 08:21 BP 112/79 11/12/23 08:21 Pulse Ox 93 11/12/23 08:21 O2 Del Method Room Air 11/12/23 08:21 Weight last 48 hrs Weight 260 lb Physical Exam 2 Narrative: GENERAL: The patient is alert and oriented times three. Not in any acute distress. HEENT: No significant pallor, icterus or lymphadenopathy.Oral cavity: There are no mucous membrane lesions. NECK: Trachea appears to be central. No masses noted. No JVD or thyromegaly appreciated. RESPIRATORY: Chest is symmetrical. No intercostals muscle retraction or any accessory muscle activation. There is no chest wall tenderness. Breath sounds are heard bilaterally. No rales or rhonchi heard. No evidence of any consolidation. BREASTS: Deferred. HEART: The heart sounds are normal. No S3 or S4. No significant murmurs. No pericardial rub ABDOMEN: No vessel pulsations or distention. No tenderness. No organomegaly appreciated. Bowel sounds are normally heard. : Deferred. RECTAL: Deferred. LYMPHATIC: No lymphadenopathy noted in the neck. EXTREMITIES: No edema or cyanosis. No clubbing. MUSCULOSKELETAL: No acute joint deformities or swelling SKIN: There are no significant rashes or ecchymosis NEUROPSYCHIATRIC: The patient is alert and oriented x3. Appears to be in a good mood. No tremors or rigidity noted. Data 11/12/23 04:39 11/12/23 04:39 Other Labs: Laboratory Last Values WBC 7.30 10^3/uL (3.29-11.43) 11/12/23 04:39 RBC 4.85 10^6/uL (3.85-5.65) 11/12/23 04:39 Hgb 13.00 g/dL (11.27-16.99) 11/12/23 04:39 Hct 40.1 % (36-47) 11/12/23 04:39 MCV 82.7 fl (85-98) L 11/12/23 04:39 MCH 26.8 pg (27-33) L 11/12/23 04:39 MCHC 32.4 g/dL (30-55) 11/12/23 04:39 RDW 16.7 % (12.1-15.1) H 11/12/23 04:39 Plt Count 247 10^3/cmm (157-399) 11/12/23 04:39 MPV 9.8 fL (7.4-10.4) 11/12/23 04:39 Neut % (Auto) 51.9 % 11/12/23 04:39 Lymph % (Auto) 32.6 % 11/12/23 04:39 [place] % (Auto) 10.5 % 11/12/23 04:39 Eos % (Auto) 3.6 % 11/12/23 04:39 Baso % (Auto) 0.7 % 11/12/23 04:39 Neut # (Auto) 3.79 10^3/uL (1.8-7.7) 11/12/23 04:39 Lymph # (Auto) 2.4 10^3/uL (0.8-4.8) 11/12/23 04:39 [place] # (Auto) 0.8 10^3/uL (0.2-0.9) 11/12/23 04:39 Eos # (Auto) 0.3 10^3/uL (0.0-0.8) 11/12/23 04:39 Baso # (Auto) 0.1 10^3/uL (0.0-0.1) 11/12/23 04:39 Nucleated RBC % (auto) 0 % 11/12/23 04:39 Nucleated RBCs # 0.0 /100WBC 11/12/23 04:39 PT 13.10 SECONDS (12.1-14.9) 11/11/23 16:58 INR 0.96 (0.8-1.2) 11/11/23 16:58 D-Dimer 0.30 ug/mLFEU (0-0.59) 11/11/23 16:58 Sodium 137 mmol/L (136-145) 11/12/23 04:39 Potassium 3.6 mmol/L (3.5-5.1) 11/12/23 04:39 Chloride 102 mmol/L (98-107) 11/12/23 04:39 Carbon Dioxide 23 mmol/L (22-29) 11/12/23 04:39 Anion Gap 15.6 (5-19) 11/12/23 04:39 BUN 7 mg/dL (6-20) 11/12/23 04:39 Creatinine 0.5 mg/dL (0.5-0.9) 11/12/23 04:39 GFR Calculation 135.3 mL/min (90-130) H 11/12/23 04:39 Glucose 165 mg/dL (65-115) H 11/12/23 04:39 Estimat Average Glucose 174 11/12/23 04:39 Hemoglobin A1c 7.7 % (4.0-6.0) H 11/12/23 04:39 Calculated Osmolality 286 mOsm/kg (285-295) 11/12/23 04:39 Calcium 8.7 mg/dL (8.5-10.5) 11/12/23 04:39 Phosphorus 3.5 mg/dL (2.5-4.5) 11/12/23 04:39 Magnesium 1.9 mg/dL (1.7-2.3) 11/12/23 04:39 Total Bilirubin 0.3 mg/dL (0.15-1.2) 11/12/23 04:39 AST 80 U/L (0-32) H 11/12/23 04:39 ALT 84 U/L (0-33) H 11/12/23 04:39 Alkaline Phosphatase 73 U/L (35-105) 11/12/23 04:39 Troponin T Baseline 12 ng/L (0-10) H 11/11/23 16:58 Troponin T 120 Minute 7.42 ng/L (0-10) 11/11/23 18:56 Delta Troponin T -4.58 ABS# (0-10) L 11/11/23 18:56 Troponin T Hi Sens 6Hr 6.00 ng/L (0-10) 11/11/23 22:50 Troponin T Hi Sens 6Hr Delta -6.00 ng/L (0-12) L 11/11/23 22:50 NT-Pro-B Natriuret Pep < 36 pg/mL (0-125) 11/11/23 19:06 Total Protein 6.0 g/dL (6.6-8.7) L 11/12/23 04:39 Albumin 3.7 g/dL (3.5-5.2) 11/12/23 04:39 Globulin 2.3 g/dL (1.3-4.6) 11/12/23 04:39 Triglycerides 168 mg/dL (0-150) H 11/12/23 04:39 Cholesterol 108 mg/dL (0-200) 11/12/23 04:39 LDL Cholesterol, Calc 35 mg/dL (50-129) L 11/12/23 04:39 HDL Cholesterol 39 mg/dL (60-100) L 11/12/23 04:39 LDL/HDL Ratio 0.90 RATIO (0.00-3.22) 11/12/23 04:39 Cholesterol/HDL Ratio 2.77 mg/dL (0.0-4.40) 11/12/23 04:39 TSH 1.52 uIU/mL (0.27-4.20) 11/11/23 16:58 Urine Color Yellow (Yellow) 11/11/23 20:48 Urine Appearance Hazy (CLEAR) A 11/11/23 20:48 Urine pH 5 (5-7) 11/11/23 20:48 Ur Specific Bryant 1.020 (1.005-1.030) 11/11/23 20:48 Urine Protein Neg (Negative) 11/11/23 20:48 Urine Glucose (UA) Trace (Normal) H 11/11/23 20:48 Urine Ketones Negative (Negative) 11/11/23 20:48 Urine Blood 3+ (Negative) H 11/11/23 20:48 Urine Nitrate Negative (Negative) 11/11/23 20:48 Urine Bilirubin Neg (Negative) 11/11/23 20:48 Urine Urobilinogen Neg mg/dL (Negative) 11/11/23 20:48 Ur Leukocyte Esterase Negative (Negative) 11/11/23 20:48 Urine RBC 50-80 /hpf (0-2) H 11/11/23 20:48 Urine WBC None /hpf (0-5) 11/11/23 20:48 Ur Squamous Epith Cells 5-10 /hpf (0-5) H 11/11/23 20:48 Amorphous Sediment Not Reportable 11/11/23 20:48 Urine Bacteria Trace /hpf (NONE) 11/11/23 20:48 Urine Mucus 2+ /hpf 11/11/23 20:48 A&P Assessment and plan (1) Unstable angina pectoris due to coronary arteriosclerosis: The patient's symptoms are suggestive of unstable angina. However the EKG is unremarkable. The Myocardial perfusion imaging revealed small area of reversible and reversible defect in the inferolateral region, suggesting ischemia in the distribution of the left circumflex artery (2) Elevated blood pressure reading: May be treated with beta-edouard and nitrates (3) Pulmonary embolism: Has not had any recurrence of PE based on the CTA. Qualifiers: Acute cor pulmonale presence: without acute cor pulmonale Chronicity: a cute Pulmonary embolism type: unspecified Qualified Code(s): I26.99 - Other pulmonary embolism without acute cor pulmonale (4) DEJESUS (dyspnea on exertion): Most likely related to the dysfunction/ischemia. An echocardiogram would be helpful to evaluate LV function and rule out any other pathology. (5) Palpitations: This patient seems to have sinus tachycardia with activities. Possibility of LV dysfunction/cardiac arrhythmia are considerations. Patient needs to be closely monitored on telemetry. (6) Family history of premature coronary heart disease: Patient has a strong family history for premature atherosclerotic heart disease. We may go ahead and do a lipid profile. Plan Patient underwent cardiac catheterization today. She was found to have no significant obstructive coronary artery disease. The LVEDP was around 20 mmHg A noncardiac cause for the chest pain needs to be looked into. Will optimize antihypertensive medications Attestations 2 Medical Necessity Statement*: Deferred to the primary Coding Level of Care Code 71800 Diagnoses Unstable angina pectoris due to coronary arteriosclerosis I25.110 Elevated blood pressure reading R03.0 Acute pulmonary embolism without acute cor pulmonale, unspecified pulmonary embolism type I26.99 Acute cor pulmonale presence: without acute cor pulmonale Chronicity: acute Pulmonary embolism type: unspecified DEJESUS (dyspnea on exertion) R06.09 Palpitations R00.2 Family history of premature coronary heart disease Z82.49
--- NOTE | 2023-11-12 08:45 | CT_ITS ---
WS: [id number] CT CHEST TECHNIQUE: Noncontrast CT of the chest with coronal and sagittal reformatted images. CLINICAL INFORMATION: Shortness of breath COMPARISON: None. DLP: 679.[address] scans at [facility] use at least one of these dose optimization techniques: automated e xposure control; mA and/or kV adjustment per patient size (includes targeted exams where dose is matc hed to clinical indication); or iterative reconstruction. FINDINGS: Normal caliber thoracic aorta. No mediastinal or hilar lymphadenopathy. No axillary lymphadenopathy. Lungs are well aerated. No pneumothorax. No acute pulmonary infiltrates. Diffuse fatty infiltration of the liver. Cholecystectomy. Small esophageal hiatal hernia. Adrenal gla nds are normal. IMPRESSION: No acute chest findings
[2023-11-12] MEDS: pantoprazole DR 40 mg Tablet PO (09:13)
[2023-11-12] MEDS: metoprolol tartrate 25 mg Tablet PO (09:13)
[2023-11-12] MEDS: aspirin 81 mg EC Tablet PO (09:43)
[2023-11-12 09:47] LABS: C Reactive Protein 19.6 mg/L (0.0-4.9)
--- NOTE | 2023-11-12 10:00 | PC.CHAP ---
Pastoral Care Encounter/Spiritual Assessment Type of Contact [] Declined in flight refueling manager visit [] Patient/Family/Request visit [] Outpatient visit [] Follow-up visit [] Physician referral [] Code/Alert [x] Routine visit [] Staff referral [] Actively dying [] Patient sleeping [x] Family support [] [] Out of room [] Palliative care [] [] Receiving care in room [] Pre-surgical visit [] Trauma [] Long length of stay [] ICU visit [] Other: Relational/Emotional Strength [x] Patient feels connected with others/family/visitors/staff [] Distress [] Loneliness/isolation [] Abandonment Spirituality of Patient [x] Person of Umu [] Attends Restoration of their Umu [x] Believes in Prayer [] Reads Bible or Samaritan materials [] There are Spiritual issues to be addressed Dairy Science Teacher Interventions [x] Prayer [x] Active listening [] Non-anxious presence [x] Spiritual/emotional support [] Crisis/trauma care [] Spiritual counseling [] Bereavement support [] Provided bereavement packet [] Provided Bible/devotional materials [] Provided toy/stuffed animal, coloring book to patient or family member [] Provided Communion [] Anointing/[place] [] Salvation [x] Completed spiritual assessment [] Other: Impact on Illness or Injury [] Angry [] Fearful [] Anxious [] Often cries [] Exhaustion [] Unable to work [] Unable to attend voodoo [] Unable to walk/stand [] Unable to read [] Unable to drive [] Unable to eat/drink [] Unable to sleep [] Unable to be with family [] Patient intubated [] Other: Summary Time spent with patient 5 min
[2023-11-12 10:27] LABS: Erythrocyte Sedimentation Rate 30 mm/hr (0-15)
[2023-11-12] MEDS: losartan 50 mg Tablet PO (12:06)
[2023-11-12 12:13] LABS: Glucose Point of Care 281 mg/dL (70-110)
[2023-11-12 12:13] LABS: Glucose Point of Care 276 mg/dL (70-110)
[2023-11-12] MEDS: insulin lispro 100 unit/1 mL SUBCUT (12:43)
--- NOTE | 2023-11-12 13:42 | P.DS_ITS ---
Discharge Providers Date of Admission: 11/11/23 17:58 Date of Discharge: November 12, 2023 Attending Provider at Admission: Kaitlynn Nick MD Attending Provider at Discharge: Jhonatan Galo MD Consults: Cardiology: Dr. Clark Primary Care Provider: Alvaro Reeves DO Diagnoses at Discharge Discharge Diagnosis (1) Unstable angina pectoris due to coronary arteriosclerosis: Status: Acute (2) Chest pain: Status: Acute (3) Elevated blood pressure reading: Status: Acute (4) Family history of premature coronary heart disease: Status: Acute (5) Palpitations: Status: Acute (6) DEJESUS (dyspnea on exertion): Status: Acute (7) Pulmonary embolism: Status: Acute Qualifiers: Pulmonary embolism type: unspecified Chronicity: acute Acute cor pulmonale presence: without acute cor pulmonale Qualified Code(s): I26.99 - Other pulmonary embolism without acute cor pulmonale (8) SLE (systemic lupus erythematosus related syndrome): Status: Acute Reason for Visit Reason for Visit: Chest pains Hospital Course Hospital Course Emily Jauregui is a 43 year old female with past medical history of hypertension, bilateral pulmonary embolism not on anticoagulation anymore(finished course of Eliquis for 6 months), recent diagnosis of lupus on azathioprine and follows up with rheumatology as an outpatient was sent into the ER today from cardiology office. As per the patient and her at bedside she has been having concerns for chest pain, chest pressure on minimal exertion along with shortness of breath, palpitations and dizziness getting worse over the last 2 months. Patient has had multiple diagnostic studies done for the same in last 2 months including CTA which showed no pulmonary embolism, Lexiscan stress test on 11/04 which was questionable of attenuation artifact versus prior infarct with mild madeline-infarct ischemia in LCx territory along with echocardiogram which showed mild regional wall motion abnormality at apex and IVS. As per patient her heart rate goes up to 160s which she is able to monitor through her pulse oximetry at home on minimal exertion including taking a shower associated with shortness of breath and dizziness with her saturations going down to mid 80s. Patient denies any history of smoking but gives significant family history of quadruple bypass in her mother at the age of mid 40s. Patient was admitted to the hospital further evaluation and management. Cardiology was consulted. Echocardiogram was done which showed EF of 50 to 55% with mild diffuse hypokinesia of septum and anteroseptal segment of the LV. Patient underwent cardiac angiogram in 11/11 which showed nonobstructive CAD. During hospitalization patient did have elevated blood pressures for which her antihypertensives were adjusted. She was also found to be diabetic with A1c of 7.7. Patient walked around in the hospitalization with no difficulty in breathing on room air with occasional episode of tachycardia. CT chest was done which was negative for any acute abnormality. Her ESR and CRP remain at baseline level. D-dimer was found to be normal with recent CTA within the last 2 months which was negative for pulmonary embolism. She has been discharged in hemodynamically stable condition back home with advised to follow-up with cardiology within next 2 weeks and PCP within next 1 month. She has been discharged on oral hypoglycemic medications along with adjusted antihypertensives. She is to check her blood sugar and blood pressure daily at home and maintain a diary and follow-up with the primary care provider within next 1 month for further adjustment of medications. Physical Exam Narrative: General: Ill mild distress from chest heaviness, AO x 3, anxious HEENT: PERRLA, pupils bilaterally equal and reactive Chest: Normal vesicular breath sounds, no added sounds, mildly decreased air e ntry bilaterally which improves with taking a deep breath, mild tachypnea CVS: S1-S2 regular, no murmurs, no tachycardia, no gallops, no rubs Abdomen: Soft, nontender, no organomegaly, bowel sounds present Neuro: No focal deficits, no facial deformity, AO x3, power 5/5 in all limbs Discharge Data Studies Completed and Pending Completed Studies During Hospitalization Category Date Time Status CT chest wo con [id number] Routine Cat Scan 11/12/23 08:45 Completed XR chest 1V portable [id number] Stat Exams 11/11/23 15:59 Completed CV. 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 Correlate for pulmonary infection. Echocardiogram: CONCLUSIONS Normal LV size with borderline low ejection fraction of 50 to 55%. Mild diffuse hypokinesia of the septum and the anteroseptal segment. No gross valvular abnormalities Normal cardiac chamber sizes No pericardial effusion Technically somewhat difficult study No similar previous studies are available for comparison Dr Colette Clark MD [facility] (Electronically Signed) Final Date: 11 November 2023 22:38 CT chest: FINDINGS: Normal caliber thoracic aorta. No mediastinal or hilar lymphadenopathy. No axillary lymphadenopathy. Lungs are well aerated. No pneumothorax. No acute pulmonary infiltrates. Diffuse fatty infiltration of the liver. Cholecystectomy. Small esophageal hiatal hernia. Adrenal glands are normal. IMPRESSION: No acute chest findings Dictated By: Harsha Warren MD Laboratory Results WBC 7.30 10^3/uL (3.29-11.43) 11/12/23 04:39 RBC 4.85 10^6/uL (3.85-5.65) 11/12/23 04:39 Hgb 13.00 g/dL (11.27-16.99) 11/12/23 04:39 Hct 40.1 % (36-47) 11/12/23 04:39 MCV 82.7 fl (85-98) L 11/12/23 04:39 MCH 26.8 pg (27-33) L 11/12/23 04:39 MCHC 32.4 g/dL (30-55) 11/12/23 04:39 RDW 16.7 % (12.1-15.1) H 11/12/23 04:39 Plt Count 247 10^3/cmm (157-399) 11/12/23 04:39 MPV 9.8 fL (7.4-10.4) 11/12/23 04:39 Neut % (Auto) 51.9 % 11/12/23 04:39 Lymph % (Auto) 32.6 % 11/12/23 04:39 [place] % (Auto) 10.5 % 11/12/23 04:39 Eos % (Auto) 3.6 % 11/12/23 04:39 Baso % (Auto) 0.7 % 11/12/23 04:39 Neut # (Auto) 3.79 10^3/uL (1.8-7.7) 11/12/23 04:39 Lymph # (Auto) 2.4 10^3/uL (0.8-4.8) 11/12/23 04:39 [place] # (Auto) 0.8 10^3/uL (0.2-0.9) 11/12/23 04:39 Eos # (Auto) 0.3 10^3/uL (0.0-0.8) 11/12/23 04:39 Baso # (Auto) 0.1 10^3/uL (0.0-0.1) 11/12/23 04:39 Nucleated RBC % (auto) 0 % 11/12/23 04:39 Nucleated RBCs # 0.0 /100WBC 11/12/23 04:39 ESR 30 mm/hr (0-15) H 11/12/23 04:39 PT 13.10 SECONDS (12.1-14.9) 11/11/23 16:58 INR 0.96 (0.8-1.2) 11/11/23 16:58 D-Dimer 0.30 ug/mLFEU (0-0.59) 11/11/23 16:58 Sodium 137 mmol/L (136-145) 11/12/23 04:39 Potassium 3.6 mmol/L (3.5-5.1) 11/12/23 04:39 Chloride 102 mmol/L (98-107) 11/12/23 04:39 Carbon Dioxide 23 mmol/L (22-29) 11/12/23 04:39 Anion Gap 15.6 (5-19) 11/12/23 04:39 BUN 7 mg/dL (6-20) 11/12/23 04:39 Creatinine 0.5 mg/dL (0.5-0.9) 11/12/23 04:39 GFR Calculation 135.3 mL/min (90-130) H 11/12/23 04:39 Glucose 165 mg/dL (65-115) H 11/12/23 04:39 POC Glucose 281 mg/dL (70-110) H 11/12/23 12:07 Estimat Average Glucose 174 11/12/23 04:39 Hemoglobin A1c 7.7 % (4.0-6.0) H 11/12/23 04:39 Calculated Osmolality 286 mOsm/kg (285-295) 11/12/23 04:39 Calcium 8.7 mg/dL (8.5-10.5) 11/12/23 04:39 Phosphorus 3.5 mg/dL (2.5-4.5) 11/12/23 04:39 Magnesium 1.9 mg/dL (1.7-2.3) 11/12/23 04:39 Total Bilirubin 0.3 mg/dL (0.15-1.2) 11/12/23 04:39 AST 80 U/L (0-32) H 11/12/23 04:39 ALT 84 U/L (0-33) H 11/12/23 04:39 Alkaline Phosphatase 73 U/L (35-105) 11/12/23 04:39 Troponin T Baseline 12 ng/L (0-10) H 11/11/23 16:58 Troponin T 120 Minute 7.42 ng/L (0-10) 11/11/23 18:56 Delta Troponin T -4.58 ABS# (0-10) L 11/11/23 18:56 Troponin T Hi Sens 6Hr 6.00 ng/L (0-10) 11/11/23 22:50 Troponin T Hi Sens 6Hr Delta -6.00 ng/L (0-12) L 11/11/23 22:50 C-Reactive Protein 19.6 mg/L (0.0-4.9) H 11/12/23 04:39 NT-Pro-B Natriuret Pep < 36 pg/mL (0-125) 11/11/23 19:06 Total Protein 6.0 g/dL (6.6-8.7) L 11/12/23 04:39 Albumin 3.7 g/dL (3.5-5.2) 11/12/23 04:39 Globulin 2.3 g/dL (1.3-4.6) 11/12/23 04:39 Triglycerides 168 mg/dL (0-150) H 11/12/23 04:39 Cholesterol 108 mg/dL (0-200) 11/12/23 04:39 LDL Cholesterol, Calc 35 mg/dL (50-129) L 11/12/23 04:39 HDL Cholesterol 39 mg/dL (60-100) L 11/12/23 04:39 LDL/HDL Ratio 0.90 RATIO (0.00-3.22) 11/12/23 04:39 Cholesterol/HDL Ratio 2.77 mg/dL (0.0-4.40) 11/12/23 04:39 TSH 1.52 uIU/mL (0.27-4.20) 11/11/23 16:58 Urine Color Yellow (Yellow) 11/11/23 20:48 Urine Appearance Hazy (CLEAR) A 11/11/23 20:48 Urine pH 5 (5-7) 11/11/23 20:48 Ur Specific [place] 1.020 (1.005-1.030) 11/11/23 20:48 Urine Protein Neg (Negative) 11/11/23 20:48 Urine Glucose (UA) Trace (Normal) H 11/11/23 20:48 Urine Ketones Negative (Negative) 11/11/23 20:48 Urine Blood 3+ (Negative) H 11/11/23 20:48 Urine Nitrate Negative (Negative) 11/11/23 20:48 Urine Bilirubin Neg (Negative) 11/11/23 20:48 Urine Urobilinogen Neg mg/dL (Negative) 11/11/23 20:48 Ur Leukocyte Esterase Negative (Negative) 11/11/23 20:48 Urine RBC 50-80 /hpf (0-2) H 11/11/23 20:48 Urine WBC None /hpf (0-5) 11/11/23 20:48 Ur Squamous Epith Cells 5-10 /hpf (0-5) H 11/11/23 20:48 Amorphous Sediment Not Reportable 11/11/23 20:48 Urine Bacteria Trace /hpf (NONE) 11/11/23 20:48 Urine Mucus 2+ /hpf 11/11/23 20:48 Vitals Last Vital Signs Temp 98.4 F 11/12/23 00:00 Pulse 104 H 11/12/23 09:13 Resp 20 H 11/12/23 09:13 BP 114/87 11/12/23 09:13 Pulse Ox 96 11/12/23 09:13 O2 Del Method Room Air 11/12/23 08:21 Discharge Plan Discharge Patient Disposition: Home Condition: Stable Prescriptions: New losartan 50 mg Tablet 50 mg PO DAILY Qty: 30 0RF atorvastatin 40 mg Tablet 20 mg PO BEDTIME Qty: 30 0RF aspirin 81 mg Tablet,Delayed Release (Dr/Ec) 81 mg PO DAILY Qty: 30 0RF (DME) blood-glucose meter [Blood Glucose Monitoring] Kit See Rx Instructions .ROUTE .MEDSUPPLY Qty: 1 0RF Rx Instructions: As directed (DME) pen needle, diabetic [BD Ultra-Fine Micro Pen Needle] 32 gauge x 1/4 needle See Rx Instructions .ROUTE .MEDSUPPLY Qty: 50 0RF Rx Instructions: As directed (DME) [facility] [place] See Rx Instructions .ROUTE .MEDSUPPLY Qty: 100 0RF Rx Instructions: As directed Janumet 50-1,000 mg tablet 1 tab PO BID Qty: 60 0RF Continued omeprazole 40 mg capsule,delayed release(DR/EC) 40 mg PO QAM azathioprine 50 mg tablet See Rx Instructions PO .COMPLEX Qty: 90 3RF Rx Instructions: take 2 tabs in AM and 1 tab in PM orally; prednisone 20 mg tablet See Rx Instructions PO .COMPLEX PRN (Reason: joint pain flare) Qty: 30 1RF Rx Instructions: take 1 or 2 tab daily for 3-7 days as needed for arthritis flare PO PRN; metoclopramide HCl 10 mg tablet See Rx Instructions .ROUTE .COMPLEX Qty: 30 0RF Dose Instruction: TAKE 1 TABLET BY MOUTH EVERY 6 HOURS NEEDED FOR NAUSEA AND VOMITING Rx Instructions: TAKE 1 TABLET BY MOUTH EVERY 6 HOURS NEEDED FOR NAUSEA AND VOMITING acetaminophen [Tylenol Extra Strength] 500 mg Tablet 500 - 1,000 mg PO PRN hydroxyzine HCl 25 mg tablet 25 mg PO QID PRN (Reason: Anxiety) Changed metoprolol tartrate 50 mg tablet 75 mg PO BID Qty: 10 0RF Discontinued diclofenac sodium 75 mg tablet,delayed release (DR/EC) See Rx Instructions .ROUTE .COMPLEX Qty: 60 0RF Dose Instruction: Take 1 tablet by mouth twice daily as needed for pain Rx Instructions: Take 1 tablet by mouth twice daily as needed for pain Discharge Orders: Discharge Order (Routine); Ordered 11/12/23 Ordered By: Jhonatan Galo Other Ambulatory Orders: ECG holter monitor 24 hour (Routine) Timeframe: 2 Weeks Facility: [facility] - Location: Cardiac Diagnostic Laboratory Ordered By: Jhonatan Galo Referrals: Alvaro Reeves DO [Primary Care Provider] - 1 month Marguerite Ritchie FNP [Nurse Practitioner] - 7-10 days Discharge Diet: Cardiac and Diabetic Discharge Activity: Resume usual activity and Increase activity as tolerated Patient Instructions: Opioid Safety, Pain Management Activity Restrictions/Additional Instructions: Please check your blood sugar and blood pressure daily at home and maintain a diary and follow-up with a primary care provider within next 1 month for further adjustment of medications. Discharge Attestations Time Spent in Discharge Care*: greater than 30 min Specific Discharge Activities: educating patient, educating and/or supporting family/caregiver, discussing with pcp/other providers, discussing with casey saw operator/social workers/dc planners, documenting/other paperwork and evaluating patient/reviewing data Status at Discharge: Cognitive status at discharge: cognitively intact , Behavioral status at discharge: cooperative , Functional status at discharge: independent ambulation , Overall status at discharge: patient is progressing back to baseline Quality Metrics Clinical Quality Measures [ No reported AMI, CVA or VTE this stay] Coding Level of Care Code 88082 Total time (in minutes) for Discharge: 60 Diagnoses Unstable angina pectoris due to coronary arteriosclerosis I25.110 Chest pain R07.9 Elevated blood pressure reading R03.0 Family history of premature coronary heart disease Z82.49 Palpitations R00.2 DEJESUS (dyspnea on exertion) R06.09 Acute pulmonary embolism without acute cor pulmonale, unspecified pulmonary embolism type I26.99 Pulmonary embolism type: unspecified Chronicity: acute Acute cor pulmonale presence: without acute cor pulmonale SLE (systemic lupus erythematosus related syndrome) M32.9
== END 2023-11-12 18:08 | disposition home or self-care (01) ==
LOC: ER 17:58 → ER IP 18:33 → CSU 22:45
PROVIDERS: Internal Medicine Cardiovascular Disease; Admitting Provider Student in an Organized Health Care Education/Training Program; Emergency Provider Emergency Medicine; PCP Electrodiagnostic Medicine; Visit Provider Student in an Organized Health Care Education/Training Program
DX: I25.110 Atherosclerotic heart disease of native coronary artery with unstable angina pectoris (principal); R03.0 Elevated blood-pressure reading, without diagnosis of hypertension; Z82.49 Family history of ischemic heart disease and other diseases of the circulatory system; R00.2 Palpitations; R06.09 Other forms of dyspnea; I26.99 Other pulmonary embolism without acute cor pulmonale; M32.9 Systemic lupus erythematosus, unspecified; I10 Essential (primary) hypertension; Z87.39 Personal history of other diseases of the musculoskeletal system and connective tissue
CPT/HCPCS: 36415; 36416; 71045; 71250; 80053; 80061; 81001; 82962; 83036; 83735; 83880; 84100; 84443; 84484; 85025; 85378; 85610; 85651; 86140; 87086; 93005; 93306; 93458; 94664; 96372; 96374; 99152; 99153; 99285; A9270; C1769; C1887; C1894; G0378; J0360; J1200; J1644; J1650; J1815; J2250; J3010; J3490; J7030; Q9967

== ENCOUNTER 2024-01-14 16:19 | Outpatient (CLI) | payer BC, SELFPAY | END 2024-01-14 16:20 | disposition home or self-care (01) | LOC: LAB 16:20 | PROVIDERS: PCP Electrodiagnostic Medicine; Visit Provider Internal Medicine Rheumatology | DX: M32.9 Systemic lupus erythematosus, unspecified (principal); Z79.899 Other long term (current) drug therapy | CPT/HCPCS: 36415 ==

== ENCOUNTER 2024-02-25 14:30 | Outpatient (CLI) | payer BC, SELFPAY ==
[2024-02-25 14:51] LABS: Basophils # 0.1 10^3/uL (0.0-0.1); Basophils % 0.7 %; Eosinophils # 0.3 10^3/uL (0.0-0.8); Eosinophils % 3.1 %; Lymphocytes # 2.2 10^3/uL (0.8-4.8); Lymphocytes % 24.8 %; Mean Corpuscular HGB Conc 30.9 g/dL (30-55); Mean Corpuscular Hemoglobin 25.5 pg (27-33); Mean Corpuscular Volume 82.5 fl (85-98); Mean Platelet Volume 9.7 fL (7.4-10.4); Monocytes # 0.7 10^3/uL (0.2-0.9); Monocytes % 7.7 %; Neutrophils # 5.65 10^3/uL (1.8-7.7); Neutrophils % 62.7 %; Nucleated Red Blood Cells % 0 %; Platelet Count 316 10^3/cmm (157-399); Red Blood Count 5.21 10^6/uL (3.85-5.65); Red Cell Distribution Width 17.1 % (12.1-15.1)
[2024-02-25 14:56] LABS: Erythrocyte Sedimentation Rate 43 mm/hr (0-15)
[2024-02-25 19:38] LABS: Alanine Aminotransferase 51 U/L (0-33); Albumin Level 3.9 g/dL (3.5-5.2); Alkaline Phosphatase 60 U/L (35-105); Aspartate Amino Transferase 39 U/L (0-32); Complement C3 203 mg/dL (90-180); Globulin 3.4 g/dL (1.3-4.6); Glomerular Filtration Rate 91.8 mL/min (90-130); Total Bilirubin 0.4 mg/dL (0.15-1.2); Total Protein 7.3 g/dL (6.6-8.7)
== END 2024-02-25 14:31 | disposition home or self-care (01) ==
LOC: LAB 14:31
PROVIDERS: PCP Electrodiagnostic Medicine; Visit Provider Internal Medicine Rheumatology
DX: M32.9 Systemic lupus erythematosus, unspecified; Z79.899 Other long term (current) drug therapy; R76.8 Other specified abnormal immunological findings in serum
CPT/HCPCS: 36415; 80076; 82565; 85025; 85651; 86140; 86160

== ENCOUNTER 2024-09-07 14:45 | Outpatient (CLI) | payer BC, SELFPAY ==
[2024-09-07 15:21] LABS: Basophils % 0.5 %; Eosinophils # 0.1 10^3/uL (0.0-0.8); Eosinophils % 1.7 %; Hematocrit 41.5 % (36-47); Lymphocytes # 1.3 10^3/uL (0.8-4.8); Lymphocytes % 20.2 %; Mean Corpuscular HGB Conc 33.3 g/dL (30-55); Mean Corpuscular Hemoglobin 29.7 pg (27-33); Mean Corpuscular Volume 89.4 fl (85-98); Mean Platelet Volume 9.5 fL (7.4-10.4); Monocytes # 0.4 10^3/uL (0.2-0.9); Monocytes % 6.3 %; Neutrophils # 4.46 10^3/uL (1.8-7.7); Neutrophils % 70.8 %; Nucleated Red Blood Cells % 0.3 %; Platelet Count 233 10^3/cmm (157-399); Red Blood Count 4.64 10^6/uL (3.85-5.65); Red Cell Distribution Width 18.5 % (12.1-15.1)
[2024-09-07 15:23] LABS: Erythrocyte Sedimentation Rate 37 mm/hr (0-15)
[2024-09-07 15:44] LABS: Alanine Aminotransferase 54 U/L (0-33); Alkaline Phosphatase 69 U/L (35-105); Aspartate Amino Transferase 72 U/L (0-32); C Reactive Protein 27.5 mg/L (0.0-4.9); Globulin 3.5 g/dL (1.3-4.6); Glomerular Filtration Rate 109.1 mL/min (90-130); Total Bilirubin 0.7 mg/dL (0.15-1.2); Total Protein 7.5 g/dL (6.6-8.7)
== END 2024-09-07 14:46 | disposition home or self-care (01) ==
LOC: LAB 14:47
PROVIDERS: PCP Electrodiagnostic Medicine; Visit Provider Internal Medicine Rheumatology
DX: M32.9 Systemic lupus erythematosus, unspecified (principal); Z79.899 Other long term (current) drug therapy
CPT/HCPCS: 36415; 80076; 82565; 85025; 85651; 86140

== ENCOUNTER → 2024-12-15 15:35 | Outpatient (BNVA) | payer BC, SELFPAY | PROVIDERS: PCP Electrodiagnostic Medicine; Visit Provider Internal Medicine Rheumatology | DX: Z79.899 Other long term (current) drug therapy (principal) | CPT/HCPCS: 36415; 80076; 82565; 85025; 85651; 86140 ==

== ENCOUNTER 2025-08-11 19:32 | Observation (INO) | payer BC, SELFPAY ==
[2025-08-11] VITALS (8 sets, daily range): BP systolic 103–170; BP diastolic 72–144; PULSE 97–118; RESP 15–18; TEMP 36.7; O2SAT 90–99
--- OUTSIDE RECORDS SUMMARY | 2025-08-11 19:36 | XMS_ITS | Encounter Summary ---
Author Organization [facility] Address [address] [place] [address] Care Team Providers Care Caddy Master Name Role Phone Unavailable Primary Care Provider Unavailabl e Encounter Details Date Type Department Care Team (Latest Contact Info) Description 01/16/2001 Outpatient Historical 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
--- OUTSIDE RECORDS SUMMARY | 2025-08-11 19:36 | XMS_ITS | Clinical Summary ---
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
--- OUTSIDE RECORDS SUMMARY | 2025-08-11 19:36 | XMS_ITS | Encounter Summary ---
Author Organization [facility] Address [address] [place] [address] Care Team Providers Care Network Infrastructure Architect Name Role Phone Unavailable Primary Care Provider Unavailabl e Encounter Details Date Type Department Care Team (Latest Contact Info) Description 03/25/2001 Outpatient Historical [facility] d [address] [place] [phone] Chaim Elizondo MD NO ADDRESS ON FILE Abnormal findings on screening (Primary Dx); Encounter for routine screening for malformation using ultrasonics Social History Tobacco Use Types Packs/Day Years Used Date Smoking Tobacco: Never Assessed Comments Unknown Sex and Gender Information Value Date Recorded Sex Assigned at Not on file 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
--- OUTSIDE RECORDS SUMMARY | 2025-08-11 19:36 | XMS_ITS | Encounter Summary ---
Author Organization [facility] Address [address] [place] [address] Care Team Providers Care Kilnman Name Role Phone Unavailable Primary Care Provider Unavailabl e Encounter Details Date Type Department Care Team (Latest Contact Info) Description 12/18/2000 Outpatient Historical 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
--- OUTSIDE RECORDS SUMMARY | 2025-08-11 19:36 | XMS_ITS | Encounter Summary ---
Author Organization [facility] Address [address] 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
--- OUTSIDE RECORDS SUMMARY | 2025-08-11 19:36 | XMS_ITS | Clinical Summary ---
Author Organization 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
--- OUTSIDE RECORDS SUMMARY | 2025-08-11 19:36 | XMS_ITS | Data Portability ---
Author Organization TASNE[place] Johnie [facility], [facility] Address [address] [address] [place] [address] Care Team Providers Care Executive Wellness Programs Director Name Role Phone SASHA PAYNE Primary Care Provider Unavailabl e Assessment Encounter Date Assessment Date Assessment LastModified by Organization Details LastModified Time 10/21/2024 10/21/2024 Document scribed by Ewa Rendon Scribe. I was present during interview and exam. I have reviewed and agree with above documentation . Dr. Sasha Payne. [email or web address] Not available 10/21/2024 16:26:19 01/13/2025 01/13/2025 Document scribed by Ewa Rendon Scribe. I was present during interview and exam. I have reviewed and agree with above documentation . Dr. Sasha Payne. [email or web address] Not available 01/13/2025 17:51:40 04/20/2025 04/20/2025 Document scribed by Ewa Rendon Scribe. I was present during interview and exam. I have reviewed and agree with above documentation . Dr. Sasha Payne. [email or web address] Not available 04/20/2025 10:12:04 Plan of Treatment Reminders Order Date Submit Date Provider Last Modified By Organization Details Last Modified Time Details Appointments RECHECK 2024 10:20A M Sasha Payne, DO Not available Not available Not available Lab TSH, serum or plasma 2024 025 [facility], [address] [place] [address] 248, [address], [place], [address], 04/14/2025 07:36:35 HbA1c (hemoglob in A1c), blood 2024 025 [employer], [address] [place] [address], [address], [place], [address], 04/14/2025 07:36:36 CMP, serum or plasma 2024 025 [facility], [address] [place] [address], [address], [place], [address], 04/14/2025 07:36:33 lipid panel, serum 2024 025 [facility], [address] [place] [address], [address], [place], [address], 04/14/2025 07:36:33 CBC w/ auto diff 2024 025 [facility], [address] [place] [address], [address], [place], [address], 04/14/2025 07:36:34 Referral None recorded. Procedures None recorded. Surgeries None recorded. Imaging None recorded. Medication Orders amoxicill in 875 mg tablet 2024 025 [facility], [address], [place], [address], 04/18/2025 05:01:11 cyclobenz aprine 10 mg tablet 2024 025 [email or web address] [facility], [address], [place], [address], 01/13/2025 18:43:49 Patient TargetsNo targets recorded. Patient InstructionsNo instructions recorded. Reason for Referral None Reported. Results Created Date Observation Date Name Description Value Unit Range Abnormal Flag Note LastModifiedBy Organization Detail LastModifiedTime 10/20/1910/20/2024 CMP (FEMA LE) glucose 110.0 mg/dL 60.0-9 9.0 high Not Available [facility] [address] [facility] 1, [place], [address], 10/20/2024 10:44:32 10/20/19 25 10/20/2024 CMP (FEMA LE) BUN (blood urea nitrogen) 7.0 mg/dL 10.0-2 6.0 low Not Available [facility] [address] [facility] 1, [place], [address], 10/20/2024 10:44:32 10/20/19 25 10/20/2024 CMP (FEMA LE) creatinine (serum) 0.7 mg/dL 0.4-1. 5 Not Available [facility] [address] [address], [place], [address], 10/20/2024 10:44:32 10/20/19 25 10/20/2024 CMP (FEMA LE) BUN/creatini ne ratio 10.00 ratio Not Available [facility] [address] [address], [place], [address], 10/20/2024 10:44:32 10/20/19 25 10/20/2024 CMP (FEMA LE) eGFR calculated 97.1 Not Available [facility] [address] [address], [place], [address], 10/20/2024 10:44:32 10/20/19 25 10/20/2024 CMP (FEMA LE) total protein 7.6 g/dL 6.0-8. 5 Not Available [facility] [address] [address], [place], [address], 10/20/2024 10:44:32 10/20/19 25 10/20/2024 CMP (FEMA LE) total bilirubin 0.6 mg/dL 0.2-1. 3 Not Available [facility] [address] [address], [place], [address], 10/20/2024 10:44:32 10/20/19 25 10/20/2024 CMP (FEMA LE) albumin 4.3 g/dL 3.5-5. 5 Not Available [facility] [address] [facility] 1, [place], [address], 10/20/2024 10:44:32 10/20/19 25 10/20/2024 CMP (FEMA LE) globulin 3.[address] [facility] [address] [facility], [place], [address], 10/20/2024 10:44:32 10/20/19 25 10/20/2024 CMP (FEMA LE) AST (SGOT) 41.0 U/L 0.0-46 .0 Not Available [facility] [address] [facility] 1, [place], [address], 10/20/2024 10:44:32 10/20/19 25 10/20/2024 CMP (FEMA LE) altv (SGPT) 45.0 U/L 13.0-6 9.0 normal Not Available [facility] [address] [facility] 1, [place], [address], 10/20/2024 10:44:32 10/20/19 25 10/20/2024 CMP (FEMA LE) A/G ratio 1.3 ratio Not Available [facility] [address] [facility] 1, [place], [address], 10/20/2024 10:44:32 10/20/19 25 10/20/2024 CMP (FEMA LE) ALP phos 61.0 U/L 30.0-1 40.0 normal Not Available [facility] [address] [facility] 1, [place], [address], 10/20/2024 10:44:32 10/20/19 25 10/20/2024 CMP (FEMA LE) calcium 9.0 mg/dL 8.4-10 .5 Not Available [facility] [address] [facility] 1, [place], [address], 10/20/2024 10:44:32 10/20/19 25 10/20/2024 CMP (FEMA LE) sodium 138.0 mmol/ L 136.0- 145.0 Not Available [facility] [address] [facility] 1, [place], [address], 10/20/2024 10:44:32 10/20/19 25 10/20/2024 CMP (FEMA LE) potassium 3.7 mmol/ L 3.5-5. 1 Not Available [facility] [address] [facility] 1, [place], [address], 10/20/2024 10:44:32 10/20/19 25 10/20/2024 CMP (FEMA LE) chloride 100.0 mmol/ L 98.0-1 10.0 normal Not Available [facility] [address] [facility] 1, [place], [address], 10/20/2024 10:44:32 10/20/19 25 10/20/2024 CMP (FEMA LE) C02 29.0 mmol/ L 22.0-3 1.0 Not Available [facility] [address] [facility] 1, [place], [address], 10/20/2024 10:44:32 10/20/19 25 10/20/2024 CMP (FEMA LE) anion gap 9.0 calc Not Available [facility] [address] [facility] 1, [place], [address], 10/20/2024 10:44:32 10/20/19 25 10/20/2024 CMP (FEMA LE) osmolality 283.8 calc Not Available [facility] [address] [facility] 1, [place], [address], 10/20/2024 10:44:32 04/13/2004/14/2025 LIPID PANEL , STAND PRAVIN cholesterol, total 153 mg/dL <200 normal Not Available [facility] [address] [address] [place], [address], 04/14/2025 07:36:33 04/13/2004/14/2025 LIPID PANEL , STAND PRAVIN HDL cholesterol 61 mg/dL > or = 50 normal Not Available [facility] [address] [address] [place], [address], 04/14/2025 07:36:33 04/13/2004/14/2025 LIPID PANEL , STAND PRAVIN triglyceride s 113 mg/dL <150 normal Not Available [facility] [address] [address] [place], [address], 04/14/2025 07:36:33 04/13/2004/14/2025 LIPID PANEL , STAND PRAVIN LDL-choleste rol 72 mg/dL _(monet c) normal Refer ence range : <100 Celio able range <100 mg/dL for prima ry preve ntion ; <70 mg/dL for patie nts with CHD or diabe tic patie nts with > or = 2 CHD risk facto rs. LDL-C is now calcu lated using the Albina n-Hop kins calcu tereza n, which is a valid ated novel metho d isauro peres r accur acy than the Fried magdi equat ion in the estim ation of LDL-C . Albina christianson SS et al. MELODIE. 2013; 310(1 9): 2061- 2068 (http ://ed ucati on.Qu estDi francescoos tics. com/f aq/FA Q164) Not Available [facility] [address] [place], [address], 04/14/2025 07:36:33 04/13/2004/14/2025 LIPID PANEL , STAND PRAVIN chol/HDLC ratio 2.5 (calc ) <5.0 normal Not Available [address], [address], 04/14/2025 07:36:33 04/13/20 25 04/14/2025 LIPID PANEL , STAND PRAVIN non HDL cholesterol 92 mg/dL _(monet c) <130 normal For patie nts with diabe beth plus 1 major ASCVD risk facto r, treat ing to a non-H DL-C goal of <100 mg/dL (LDL- C of <70 mg/dL ) is consi matt a shawn marquezo n. Not Available [address], [address], 04/14/2025 07:36:33 04/13/2004/14/2025 COMPR EHENS YOGI METAB OLIC PANEL glucose 84 mg/dL 65-99 normal Fasti ng refer ence inter tolu Not Available [address] [place], [address], 04/14/2025 07:36:33 04/13/20 25 04/14/2025 COMPR EHENS YOGI METAB OLIC PANEL urea nitrogen (BUN) 8 mg/dL 7-25 normal Not Available [address], [address], 04/14/2025 07:36:33 04/13/20 25 04/14/2025 COMPR EHENS YOGI METAB OLIC PANEL creatinine 0.70 mg/dL 0.50-0 .99 normal Not Available [address], [address], 04/14/2025 07:36:33 04/13/20 25 04/14/2025 COMPR EHENS YOGI METAB OLIC PANEL eGFR 110 mL/mi n/1.7 3m2 > or = 60 normal Not Available [address], [address], 04/14/2025 07:36:33 04/13/20 25 04/14/2025 COMPR EHENS YOGI METAB OLIC PANEL BUN/creatini ne ratio SEE NOTE: (calc ) 6-22 Not Repor ayaz: BUN and Creat inine are withi n refer ence range . Not Available [address], [address], 04/14/2025 07:36:33 04/13/20 25 04/14/2025 COMPR EHENS YOGI METAB OLIC PANEL sodium 138 mmol/ L 135-14 6 normal Not Available [address], [address], 04/14/2025 07:36:33 04/13/20 25 04/14/2025 COMPR EHENS YOGI METAB OLIC PANEL potassium 4.3 mmol/ L 3.5-5. 3 normal Not Available [address], [place], [address], 04/14/2025 07:36:33 04/13/20 25 04/14/2025 COMPR EHENS YOGI METAB OLIC PANEL chloride 101 mmol/ L 98-110 normal Not Available [address], [address], 04/14/2025 07:36:33 04/13/20 25 04/14/2025 COMPR EHENS YOGI METAB OLIC PANEL carbon dioxide 28 mmol/ L 20-32 normal Not Available [address], [address], 04/14/2025 07:36:33 04/13/20 25 04/14/2025 COMPR EHENS YOGI METAB OLIC PANEL calcium 9.0 mg/dL 8.6-10 .2 normal Not Available [address], [address], 04/14/2025 07:36:33 04/13/20 25 04/14/2025 COMPR EHENS YOGI METAB OLIC PANEL protein, total 6.6 g/dL 6.1-8. 1 normal Not Available [address], [address], 04/14/2025 07:36:33 04/13/20 25 04/14/2025 COMPR EHENS YOGI METAB OLIC PANEL albumin 4.0 g/dL 3.6-5. 1 normal Not Available [address], [address], 04/14/2025 07:36:33 04/13/20 25 04/14/2025 COMPR EHENS YOGI METAB OLIC PANEL globulin 2.6 g/dL_ (calc ) 1.9-3. 7 normal Not Available [address], [address], 04/14/2025 07:36:33 04/13/20 25 04/14/2025 COMPR EHENS YOGI METAB OLIC PANEL albumin/glob ulin ratio 1.5 (calc ) 1.0-2. 5 normal Not Available [address], [address], 04/14/2025 07:36:33 04/13/20 25 04/14/2025 COMPR EHENS YOGI METAB OLIC PANEL bilirubin, total 0.3 mg/dL 0.2-1. 2 normal Not Available [address], [address], 04/14/2025 07:36:33 04/13/20 25 04/14/2025 COMPR EHENS YOGI METAB OLIC PANEL alkaline phosphatase 38 U/L 31-125 normal Not Available [address], [address], 04/14/2025 07:36:33 04/13/20 25 04/14/2025 COMPR EHENS YOGI METAB OLIC PANEL AST 21 U/L 10-30 normal Not Available [address], [address], 04/14/2025 07:36:33 04/13/20 25 04/14/2025 COMPR EHENS YOGI METAB OLIC PANEL ALT 16 U/L 6-29 normal Not Available [address], [address], 04/14/2025 07:36:33 04/13/20 25 04/14/2025 CBC (INCL UDES DIFF/ PLT) white blood cell count 5.0 thous and/u L 3.8-10 .8 normal Not Available [address], [address], 04/14/2025 07:36:34 04/13/20 25 04/14/2025 CBC (INCL UDES DIFF/ PLT) red blood cell count 4.22 ole on/uL 3.80-5 .10 normal Not Available [address], [address], 04/14/2025 07:36:34 04/13/20 25 04/14/2025 CBC (INCL UDES DIFF/ PLT) hemoglobin 12.5 g/dL 11.7-1 5.5 normal Not Available [address], [address], 04/14/2025 07:36:34 04/13/20 25 04/14/2025 CBC (INCL UDES DIFF/ PLT) hematocrit 39.3 % 35.0-4 5.0 normal Not Available [address], [address], 04/14/2025 07:36:34 04/13/20 25 04/14/2025 CBC (INCL UDES DIFF/ PLT) MCV 93.1 fL 80.0-1 00.0 normal Not Available [address], [address], 04/14/2025 07:36:34 04/13/20 25 04/14/2025 CBC (INCL UDES DIFF/ PLT) MCH 29.6 pg 27.0-3 3.0 normal Not Available [address], [address], 04/14/2025 07:36:34 04/13/20 25 04/14/2025 CBC (INCL UDES DIFF/ PLT) MCHC 31.8 g/dL 32.0-3 6.0 low For adult s, a sligh t decre ase in the calcu lated MCHC value (in the range of 30 to 32 g/dL) is most likel y not clini john fridai lupillo t; jazz er, it shoul d be inter prete d with cauti on in [facility] n with other red cell senait eters and the patie nt's clini monet condi tion. Not Available [address], [address], 04/14/2025 07:36:34 04/13/20 25 04/14/2025 CBC (INCL UDES DIFF/ PLT) RDW 16.7 % 11.0-1 5.0 high Not Available [address], [address], 04/14/2025 07:36:34 04/13/2004/14/2025 CBC (INCL UDES DIFF/ PLT) platelet count 219 thous and/u L 140-40 0 normal Not Available [address], [address], 04/14/2025 07:36:34 04/13/20 25 04/14/2025 CBC (INCL UDES DIFF/ PLT) MPV 9.3 fL 7.5-12 .5 normal Not Available [address], [address], 04/14/2025 07:36:34 04/13/20 25 04/14/2025 CBC (INCL UDES DIFF/ PLT) absolute neutrophils 2895 cells /uL 1500-7 800 normal Not Available [address], [address], 04/14/2025 07:36:34 04/13/20 25 04/14/2025 CBC (INCL UDES DIFF/ PLT) absolute lymphocytes 1380 cells /uL 850-39 00 normal Not Available [address], [address], 04/14/2025 07:36:34 04/13/20 25 04/14/2025 CBC (INCL UDES DIFF/ PLT) absolute monocytes 425 cells /uL 200-95 0 normal Not Available [address], [address], 04/14/2025 07:36:34 04/13/20 25 04/14/2025 CBC (INCL UDES DIFF/ PLT) absolute eosinophils 270 cells /uL 15-500 normal Not Available [address], [address], 04/14/2025 07:36:34 04/13/20 25 04/14/2025 CBC (INCL UDES DIFF/ PLT) absolute basophils 30 cells /uL 0-200 normal Not Available [address], [address], 04/14/2025 07:36:34 04/13/20 25 04/14/2025 CBC (INCL UDES DIFF/ PLT) neutrophils 57.9 % normal Not Available [address], [address], 04/14/2025 07:36:34 04/13/20 25 04/14/2025 CBC (INCL UDES DIFF/ PLT) lymphocytes 27.6 % normal Not Available [address], [address], 04/14/2025 07:36:34 04/13/20 25 04/14/2025 CBC (INCL UDES DIFF/ PLT) monocytes 8.5 % normal Not Available [address], [address], 04/14/2025 07:36:34 04/13/20 25 04/14/2025 CBC (INCL UDES DIFF/ PLT) eosinophils 5.4 % normal Not Available [address], [address], 04/14/2025 07:36:34 04/13/20 25 04/14/2025 CBC (INCL UDES DIFF/ PLT) basophils 0.6 % normal Not Available [address], [address], 04/14/2025 07:36:34 04/13/20 25 04/14/2025 TSH TSH 3.18 mIU/L normal Refer ence Range > or = 20 Years 0.40- 4.50 Pregn kianna Range s First trime ster 0.26- 2.66 Secon d trime ster 0.55- 2.73 Third trime ster 0.43- 2.91 Not Available [address], [address], 04/14/2025 07:36:35 04/13/20 25 04/14/2025 HEMOG LOBIN A1C hemoglobin A1C 5.3 % <5.7 normal For the purpo se of cristy batres for the prese nce of diabe beth: <5.7% Consi stent with the absen ce of diabe beth 5.7-6 .4% Consi stent with incre ased risk for diabe beth (pred iabet es) > or =6.5% Consi stent with diabe beth This assay resul t is consi stent with a decre ased risk of diabe beth. Curre ntly, no conse nsus exist s jose drake use of hemog lobin A1c for diagn osis of diabe beth in child mini. Accor ding to Ameri can Diabe beth Assoc iatio n (ADA) guide lines , hemog lobin A1c <7.0% repre sents optim al contr ol in non-p regna nt diabe tic patie nts. Diffe rent metri cs may apply to speci fic patie nt popul ation s. [facility] of Medic al Care in Diabe beth(A DA). Not Available [facility] [address] [place], [address], 04/14/2025 07:36:36 09/23/19 25 09/22/2024 XR, cervi monet spine , 2 or 3 view No observ ation record ed. [facility] [address] [place], [address], 09/28/2024 15:37:31 Result Notes None recorded. Problems Name Problem SNOMED Code Status Onset Date Resolution Date Notes Provider Name and Address Organization Details Recorded Time Arthritis 0805433 Active 2022 INFLAMMATO RY ARTHRITIS Rama drake [facility] 4 08:22:27 Disorder of connective tissue 557108117 Active 2022 CONNECTIVE TISSUE DISEASE Sasha Payne DO [address] [place] [address], [address], [facility] 4 07:55:38 Mixed anxiety and depressive disorder 017862730 Active 2022 ANXIETY AND DEPRESSION Sasha Payne DO [address] [place] [address], [address], [facility] 4 07:55:38 Sleep apnea 21474340 Active 2022 SLEEP APNEA sleep study done 04/19/2020 settings were 6-14. Rama drake [facility] 4 08:22:36 Major depressive disorder 427601656 Active 2022 Sasha Payne DO [address] [place] [address], [address], [facility] 4 07:55:38 Acute lymphadeni tis 94687384 Active 2022 Sasha Payne, DO [address] [place] [address], [address], [facility] 3 10:30:38 Systemic lupus erythemato erick 64115509 Active 2022 Sasha Payne, DO [address] [place] [address], [address], [facility] 4 07:55:38 Liver enzymes level above reference range 815133254 Active 2022 Sasha Payne, [address], [address], [facility] 3 10:00:32 Screening for malignant neoplasm of breast Active 2022 Sasha Payne, [address], [address], [facility] 3 10:00:34 Axillary lymphadeno olivier 490369345 Active 2022 Sasha Payne, [address], [address], [facility] 3 10:00:36 History of pulmonary embolus 213349619 Active 2022 Sasha Payne, [address], [address], [facility] 4 07:55:38 Dyspnea 800710312 Active 2023 Sasha Payne [address], [address], [facility] 4 11:23:20 Community acquired pneumonia 101947807 Active 2023 Sasha Payne [address], [address] [place] [address] 5, [facility] 4 11:25:09 Supraventr icular tachycardi a 1778141 Active 2023 Sasha Payne [address], [address] [place] [address] 5, [facility] 4 07:55:38 Essential hypertensi on 90148088 Active [address], [address] [place] [address] 5, [facility] 4 07:55:38 Chest pain 43177805 Active 2023 Sasha Payne [address], [address] [place] [address], [facility] 4 08:28:44 Morbid obesity 422287325 Active 2023 Sasha Payne [address], [address] [place] [address] 5, [facility] 4 07:55:38 Type 2 diabetes mellitus 38228104 Active 2023 Sasha Payne [address], [address] [place] [address] 5, [facility] 4 07:55:38 Metabolic dysfunctio n-associat ed steatotic liver disease Active 2023 Sasha Payne [address], [address] [place] [address] 5, [facility] 4 07:55:38 Problem Notes None recorded. Medical Equipment None Reported. Allergies Allergen ID Allergen Name Allergen Category Reaction Reaction Severity Criticality Documentation Date Start Date Code Code System Note Provider Name and Address Organization Details Recorded Time 41882 Substance with sulfonami de structure and antibacte rial mechanism of action (substanc e) medicatio n diarrhea moderate low 03/23/2023 10944 8003 SNOMED [facility] 4 07:52:02 87484 Non-stero idal anti-infl ammatory agent (substanc e) medicatio n other moderate high 03/23/2023 67827 5008 SNOMED React ion: eleva ayaz liver enzym es [facility] 4 07:52:18 24741 sulfasala zine Not available diarrhea vomiting moderate moderate low 03/23/2023 9524 RxNorm [facility] 4 07:52:15 64218 leflunomi de Not available nausea vomiting mild moderate low 03/23/2023 44351 RxNorm [facility] 4 07:51:49 Medications Name Sig Start Date Stop Date Status Note LastModified by Organization Details LastModified Time losartan 50 mg tablet TAKE 1 TABLET BY MOUTH ONCE DAILY 12/10 completed Not Available Not Available Not Available cyclobenz aprine 10 mg tablet Take 1 tablet by mouth three times daily as needed 2024 active Not Available Not Available Not Avai lable prednison e 10 mg tablet TAKE 2 TABLETS BY MOUTH ONCE DAILY active Not Available Not Available No t Available atorvasta tin 20 mg tablet Take 1 tablet by mouth once daily 2024 active Not Available Not Available Not Avai lable venlafaxi ne 75 mg tablet 09/04 completed Not Available Not Available Not Available metoprolo l tartrate 100 mg tablet TAKE 1 TABLET BY MOUTH TWICE DAILY FOR BLOOD PRESSURE AND HEART RATE 05/20 completed Not Available Not Available Not Available hydrocodo ne 5 mg-acetam inophen 325 mg tablet TAKE 1 TABLET BY MOUTH EVERY 6 HOURS NEEDED FOR PAIN 09/04 completed Not Available Not Available Not Available glipizide ER 10 mg tablet, extended release 24 hr TAKE 1 TABLET BY MOUTH ONCE DAILY IN THE MORNING FOR DIABETES 03/09 completed Not Available Not Available Not Available ondansetr on HCl 4 mg tablet TAKE 2 TABLETS BY MOUTH TWICE DAILY NEEDED FOR NAUSEA 2024 active Not Available Not Available Not Avai lable prednison e 20 mg tablet Take 2 tablets every day by oral route for 5 days. 03/29 completed Not Available Not Available Not Available isosorbid e mononitra te ER 30 mg tablet,ex tended release 24 hr TAKE 1 TABLET BY MOUTH ONCE DAILY 03/09 completed Not Available Not Available Not Available prednison e 5 mg tablet TAKE 1 TABLET BY MOUTH ONCE DAILY FOR 5 DAYS active Not Available Not Available No t Available metronida zole 500 mg tablet 04/20 completed Not Available Not Available Not Available azathiopr ine 50 mg tablet TAKE 2 TABLETS BY MOUTH IN THE MORNING AND 1 IN THE EVENING active Not Available Not Available No t Available ciproflox acin 500 mg tablet TAKE 1 TABLET BY MOUTH EVERY 12 HOURS 09/04 completed Not Available Not Available Not Available omeprazol e 40 mg capsule,d elayed release TAKE 1 CAPSULE BY MOUTH ONCE DAILY active Not Available Not Available No t Available amoxicill in 875 mg tablet Take 1 tablet twice a day by oral route for 10 days. 04/18 completed Not Available Not Available Not Available methotrex ate sodium 2.5 mg tablet TAKE 4 TABLETS BY MOUTH ONCE A WEEK ON THE SAME DAY 09/04 completed Not Available Not Available Not Available venlafaxi ne 37.5 mg tablet TAKE 1 TABLET BY MOUTH ONCE DAILY 09/04 completed Not Available Not Available Not Available metformin 1,000 mg tablet TAKE 1 TABLET BY MOUTH TWICE DAILY FOR DIABETES 03/09 completed only taking in the mornings Not Available Not Available Not Available metoprolo l tartrate 50 mg tablet TAKE 1 TABLET BY MOUTH TWICE DAILY 11/20 completed Not Available Not Available Not Available diclofena c potassium 50 mg tablet two times daily 09/04 completed 75mg; Recorded 02/14/20 22 10:08AM by Sasha Payne DO, Historic al Summary; Not Available Not Available Not Available aspirin 81 mg chewable tablet Chew 1 tablet every day by oral route. active Not Available Not Available No t Available diclofena c sodium 75 mg tablet,de layed release 09/22 completed Not Available Not Available Not Available folic acid 1 mg tablet TAKE 1 TABLET BY MOUTH ONCE DAILY 09/04 completed Not Available Not Available Not Available hydroxyzi ne HCl 25 mg tablet TAKE 1 TABLET BY MOUTH 4 TIMES DAILY NEEDED FOR ANXIETY AND STRESS 2024 active Not Available Not Available Not Avai lable metoprolo l succinate ER 25 mg tablet,ex tended release 24 hr Take 1 tablet by mouth once daily 2024 active Not Available Not Available Not Avai lable methylpre dnisolone 4 mg tablets in a dose pack Take 1 dose pk every day by oral route as directed . 09/19 completed Not Available Not Available Not Available albuterol sulfate HFA 90 mcg/actua tion aerosol inhaler Inhale 2 puffs every 4 hours by inhalati on route as needed. 05/05 completed Not Available Not Available Not Available losartan 100 mg tablet TAKE 1 TABLET BY MOUTH ONCE DAILY FOR BLOOD PRESSURE 02/03 completed Not Available Not Available Not Available spironola ctone 50 mg tablet TAKE 1 TABLET BY MOUTH ONCE DAILY IN THE MORNING 2024 active Not Available Not Available Not Avai lable metoclopr amide 10 mg tablet Take 1 tablet every day by oral route. active Not Available Not Available No t Available amoxicill in 875 mg-potass ium clavulana te 125 mg tablet TAKE 1 TABLET BY MOUTH TWICE DAILY FOR 5 DAYS 10/21 completed Not Available Not Available Not Available duloxetin e 60 mg capsule,d elayed release Take 1 capsule by mouth once daily 2024 active Not Available Not Available Not Avai lable hydroxyzi ne HCl four times daily, as needed 09/04 completed Recorded 02/14/20 22 10:12AM by Sasha Payne DO, Historic al Summary; Refill Quantity : 120; Tablet; Not Available Not Available Not Available folic acid daily 09/04 completed 0; Recorded 10/01/19 23 2:26PM by Jaqueline Felisha, Office Visit; Not Available Not Available Not Available venlafaxi ne daily 09/04 completed Recorded 08/23/20 10:45AM by Sasha Payne DO, Office Visit; Refill Quantity : 90; Tablet; Not Available Not Available Not Available Janumet 50 mg-1,000 mg tablet TAKE 1 TABLET BY MOUTH TWICE DAILY 11/20 completed Not Available Not Available Not Available olive leaf extract 250 mg capsule Take 1 capsule every day by oral route. active Not Available Not Available No t Available metoprolo l tartrate 75 mg tablet Take 1 tablet twice a day by oral route. 12/10 completed Not Available Not Available Not Available Benlysta 200 mg/mL subcutane ous auto-inje ctor 05/20 completed unafford able for pt, wasn't able to fill this. Not Available Not Available Not Available Mounjaro 5 mg/0.5 mL subcutane ous pen injector Inject 5 mg every week by subcutan eous route as directed for 28 days. 04/20 completed Not Available Not Available Not Available Mounjaro 15 mg/0.5 mL subcutane ous pen injector INJECT 15 MG EVERY WEEK BY SUBCUTAN EOUS ROUTE FOR 90 DAYS. active Not Available Not Available No t Available Mounjaro 10 mg/0.5 mL subcutane ous pen injector Inject 10 mg every week by subcutan eous route for 30 days. 05/20 completed Not Available Not Available Not Available Mounjaro 12.5 mg/0.5 mL subcutane ous pen injector INJECT 12.5 MG EVERY WEEK SUBCUTAN EOUSLY 03/08 completed Not Available Not Available Not Available Mounjaro 2.5 mg/0.5 mL subcutane ous pen injector Inject 2.5 mg every week by subcutan eous route for 28 days. 04/20 completed Not Available Not Available Not Available FreeStyle Marjan 3 Sensor device USE DIRECTED active Not Available Not Available No t Available Vitals Date Recorded Body height Body mass index (BMI) Body weight Oxygen saturation Heart rate Respiratory rate Systolic And Diastolic Provider Name and Address Organization Details Last Updated DateTime 5 157.48 cm 35.5 kg/m2 39485.9 2 g 99 % 96 /min 18 /min 130/76 mm[Hg] [facility] 5 16:14:52 Date Recorded Body height Body mass index (BMI) Body weight Oxygen saturation Heart rate Respiratory rate Systolic And Diastolic Provider Name and Address Organization Details Last Updated DateTime 5 157.48 cm 34.6 kg/m2 11081.3 6 g 99 % 102 /min 18 /min 120/80 mm[Hg] [facility] 5 17:19:28 Date Recorded Body height Body mass index (BMI) Body weight Oxygen saturation Heart rate Respiratory rate Systolic And Diastolic Provider Name and Address Organization Details Last Updated DateTime 5 157.48 cm 34.7 kg/m2 22091.1 1 g 99 % 115 /min 18 /min 124/76 mm[Hg] [facility] 5 11:07:43 Date Recorded Body height Body mass index (BMI) Body weight Oxygen saturation Heart rate Respiratory rate Systolic And Diastolic Provider Name and Address Organization Details Last Updated DateTime 5 157.48 cm 35.3 kg/m2 91486.0 3 g 98 % 99 /min 18 /min 120/84 mm[Hg] [facility] 5 09:53:02 Social History Question Answer Notes LastModified by Kipo Details LastModified Time Which Illicit Or Recreational Drugs Have You Used? Marijuana Edibles [email or web address] Information not available 09/04/2023 Sex: Unknown Functional Status Question Answer Note LastModified by Kipo Details LastModified Time Do you use any illicit or recreational drugs? Yes [email or web address] Information not available 09/04/2023 Do you or have you ever used any other forms of tobacco or nicotine? No [email or web address] Information not available 09/04/2023 What is your level of alcohol consumption? Occasional [email or web address] Information not available 09/04/2023 Mental Status None recorded. Family History Nothing Reported Notes:: Father; live r cancer In stable health: Mother; dementia no FHX of autoimmune issues Medical History No medical history recorded. Gynecological HistoryNo gynecological history recorded. Obstetrics History GPAL:G 0 P 0 0 0 0 Immunizations Vaccine Type Date Status Note Provider Nam e and Address Organization Details Recorded Time COVID-19, mRNA, LNP-S, PF, 100 mcg/0.5mL dose or 50 mcg/0.25mL dose 03/17/2021 completed Rama drake [facility] 04/06/2024 07:52:53 COVID-19, mRNA, LNP-S, PF, 100 mcg/0.5mL dose or 50 mcg/0.25mL dose 04/14/2021 completed Rama drake [facility] 04/06/2024 07:52:53 Influenza, split virus, trivalent, PF 05/20/2024 completed Sasha Payne DO [address] [place] [address], [id number], [facility] 05/22/2024 18:49:27 Past Encounters Encounter ID Performer Location Encounter Start Date Encounter Closed Date Diagnosis/Indication Diagnosis SNOMED-CT Code Diagnosis ICD10 Code Diagnosis IMO Codes Diagnosis Note [id number] Sasha Payne DO [facility] ([facility] [address]) [address] [place] [phone] 12/03/2022 14:59:41 12/03/2022 16:15:20 Increased liver function 99599748 R94.5 LFT elevated. has f/u labs with Dr. Lee at [facility]. will get records and follow. .cx on RX, diet, exericse. alcohol. Major depr essive disorder 003864239 F32.9 stop effexor, start cymbalta. Acute lymphadenitis 4117 4002 L04.9 start abx. rest nsaids. Return to office with no improvemen t or any problems. Go to ER with severe worsening or severe problems. [id number] Sasha Payne DO [facility] ([facility] [address]) [address] [place] [phone] 5 01/09/2023 09:11:09 01/09/2023 13:03:35 Acute lymphadenitis 83898652 L04.9 becoming chronic and refractory to abx. left axillia.I reviewed recent labs at [facility] from . no Leukocytos is or lymphocyto sis. reviewed CTA chest/abd/ pelvis 01/14 no lymphadeno thalia or masses. we will get left axillary US. counseled Systemic l upus erythematosus 98208057 M32.[address] Lee, at [facility] december 2022. started on azathiopri ne. did not tolerate other meds. Liver enzy mes level above reference range 841930936 R74.01 I reviewed labs at [facility]. increased on 12.31.22 from sep 2022. I reviewed CTA of chest/abd/ pelvis from 01/14 done due to recent PE. no lymphadeno olivier. liver was enlarged with fatty inflitrati on.pt to continue with f/u with Dr. Lee. may need US and/or bx. Screening for malignant neoplasm of breast 527436687 Z12.39 counseled. no breast lumps or changes per pt. will get mammo. Axillary lymphadenopathy 420088804 R59.0 refractory as above. reviewed labs and CTA chest/abd/ pelvis from 1 year ago as above. History of pulmonary embolus 171640990 Z86.721 [id number] Sasha Payne DO [facility] ([facility]) [address] [place] [phone] 5 09/04/2023 14:47:05 09/04/2023 17:31:46 Dyspnea 568646920 R06.00 Counseled I am concerned for PE, lab today, CXR, CT chest to r/o PE. Community acquired pneumonia 212219565 J18.9 presumed. will start abx, steroids, inh. Return to office with no improvemen t or any problems. Go to ER with severe worsening or severe problems. [id number] Sasha Payne DO [facility] ([facility]) [address] [place] [id number] 5 09/19/2023 08:30:26 09/19/2023 10:18:29 Supraventricular tachycardia 9044903 I47.10 New onset. Unclear etiology. Thyroid levels were normal. CT chest was negative for PE. Mother with history of coronary artery disease with first VT at age 42. EKG today showed sinus tachycardi a at 106. Otherwise normal.How ever her heart rate here today was in the 120s to 130s in the office.Yonathan garsia send to cardiology for further evaluation . Dyspnea 735468247 R06.00 CTA chest negative for PE on 09/04/23. TSH normal then as well. Essential hypertension 71621257 I10 With tachycardi a. New onset. Will start metoprolol and send to cardiology . [id number] Sasha Payne DO [facility] ([facility] [address]) [address] [place] [address] 11/21/2023 09:13:47 11/22/2023 23:14:16 Chest pain 60135256 R07.9 Continues. Reviewed hospital records. Angiogram with nonocclusi ve coronary artery disease. Negative evaluation for PE. Keep follow-up with cardiology . Essential hypertension 86589905 I10 Still not controlled . Will increase losartan from 50-100, increase metoprolol from 75-100. Monitor blood pressure twice a day. Keep follow-up with cardiology next week. Nausea and vomiting 1693 1999 R11.2 Systemic l upus erythematosus 49363444 M32.[address] Lee, at [facility] december 2022. started on azathiopri ne. did not tolerate other meds. Now with diabetes secondary to long-term use of prednisone /steroids Concern for lupus or connective tissue disease affecting conduction of heart. Patient is to keep her appointmen t on 423. Consider evaluation by electrophy siologist. Continue follow-up with cardiology . Disorder o f connective tissue 719137295 M35.9 concern for affecting conduction of heart. pt to f/u with her Rheumatolo gist at [facility]. consider EP eval. Drug-induc ed diabetes mellitus 0602717 E09.8 Secondary to steroid use long-term due to her lupus. We will start metformin. Counseled patient on diagnosis of diabetes and long-term effects as well as treatment options. We will work on getting her set up for diabetic education. counseled patient. Morbid obesity 571287002 E66.01 I counseled pt on obesity. We discussed risks and ways to loose weight. Pt will work on diet, exercise. Supraventr icular tachycardia 6134748 I47.10 I reviewed recent hospital records and cardiology records. No clear etiology. Will increase metoprolol to with 100 mg a day. Keep appointmen t with cardiology on 12-17 agree with event monitor. Consider electrophy siology consultati on. [id number] Sasha Payne DO [facility] ([facility]) [address] [place] [phone] 5 12/11/2023 15:28:56 12/11/2023 16:05:19 Dyspnea 063492409 R06.00 CTA chest negative for PE on 09/04/23. TSH normal then as well. Drug-induc ed diabetes mellitus 3952930 E09.8 Secondary to steroid use long-term due to her lupus. Counseled patient on diagnosis of diabetes and long-term effects as well as treatment options. We will work on getting her set up for diabetic education. counseled patient.- continue Metformin BID, will add Glipizide ER 10mg, pt is interested in Mounjaro. Will start GCM, sample placed today, pt instructed on how to use. Will refer to [facility] for Diabetic education. Essential hypertension 73782541 I10 12/11/23- Continue Losartan 100mg daily, Metoprolol 100mg BID, start Spironolac tone. Arthritis 5413479 M19.90 Counseled we want her off the Prednisone , to discuss this at her upcoming Rheum appt. [id number] Sasha Payne DO [facility] ([facility]) [address] [place] [id number] 01/14/2024 16:03:22 01/14/2024 16:54:54 Drug-induced diabetes mellitus 7869758 E09.8 Secondary to steroid use long-term due to her lupus. Counseled patient on diagnosis of diabetes and long-term effects as well as treatment options. We will work on getting her set up for diabetic education. counseled patient.- Marjan 3 prescripti on to pharmacy, this is helping pt to better control her DM, tolerating well. Lab today. continue metformin and glipizide. if A1c remains above 7.0, consider GLP-1, as pt has already been on metfomrin and glipzide.- continue Metformin BID, will add Glipizide ER 10mg, pt is interested in Mounjaro. Will start GCM, sample placed today, pt instructed on how to use. Will refer to [facility] for Diabetic education. Sleep apnea 16122167 G47 .30 CPAP nightly, for at least 4 hours per night. Using HOME, advised take her CPAP card in for evaluation for settings, consider updating sleep study. [id number] Sasha Payne DO [facility] ([facility]) [address] [place] [phone] 5 02/04/2024 14:54:02 02/04/2024 18:04:20 Liver enzymes level above reference range 242037326 R74.01 I reviewed labs at [facility]. increased on 5.8.23 from sep 2022. I reviewed CTA of chest/abd/ pelvis from 01/14 done due to recent PE. no lymphadeno olivier. liver was enlarged with fatty inflitrati on.pt to continue with f/u with Dr. Lee. may need US and/or bx. Systemic l upus erythematosus 90703768 M32.[address] Lee, at [facility] december 2022. started on azathiopri ne. did not tolerate other meds. Now with diabetes secondary to long-term use of prednisone /steroids Concern for lupus or connective tissue disease affecting conduction of heart. Patient is to keep her appointmen t on 423. Consider evaluation by electrophy siologist. Continue follow-up with cardiology . Non-alcoho lic fatty liver 101872554 K76.0 Type 2 genaro betes mellitus 25054904 E11.69 [id number] Sasha Payne DO [facility] ([facility]) [address] [place] [address] 02/10/2024 08:46:45 02/11/2024 09:38:42 [id number] Sasha Payne DO [facility] ([facility]) [address] [place] [id number] 5 03/09/2024 14:54:40 03/09/2024 16:39:14 Essential hypertension 93151034 I10 03/09/24: Stop losartan due to high engine. We will also stop isosorbide . Continue metoprolol and spironolac tone. Monitor blood pressure closely.- Continue Losartan 100mg daily, Metoprolol 100mg BID, start Spironolac tone. Chest pain 01462186 R07. 9 03/09/24: Chest pains have been resolved and now with hypotensio n. We will stop isosorbide . Monitor.; Continues. Reviewed hospital records. Angiogram with nonocclusi ve coronary artery disease. Negative evaluation for PE. Keep follow-up with cardiology . Morbid obesity 140649393 E66.01 I counseled pt on obesity. We discussed risks and ways to loose weight. Pt will work on diet, exercise. Systemic l upus erythematosus 65737713 M32.9 03/09/24: Much improved with symptoms lately. Counseled. Continue with rheumatolo gy. DX by Dr. Lee, at [facility] december 2022. started on azathiopri ne. did not tolerate other meds. Now with diabetes secondary to long-term use of prednisone /steroids Concern for lupus or connective tissue disease affecting conduction of heart. Patient is to keep her appointmen t on 423. Consider evaluation by electrophy siologist. Continue follow-up with cardiology . Drug-induc ed diabetes mellitus 7485558 E09.8 03/09/24: Much improved with Mounjaro. We have had to stop metformin and glipizide due to low blood sugar. We will increase Mounjaro and stop the metformin to help improve hepatic steatosis and obesity. Secondary to steroid use long-term due to her lupus. Counseled patient on diagnosis of diabetes and long-term effects as well as treatment options. We will work on getting her set up for diabetic education. counseled patient.- Marjan 3 prescripti on to pharmacy, this is helping pt to better control her DM, tolerating well. Lab today. continue metformin and glipizide. if A1c remains above 7.0, consider GLP-1, as pt has already been on metfomrin and glipzide.- continue Metformin BID, will add Glipizide ER 10mg, pt is interested in Mounjaro. Will start GCM, sample placed today, pt instructed on how to use. Will refer to [facility] for Diabetic education. Type 2 genaro betes mellitus 33621429 E11.69 03/09/24: Much improved with Mounjaro. We have had to stop metformin and glipizide due to low blood sugar. We will increase Mounjaro and stop the metformin to help improve hepatic steatosis and obesity. Secondary to steroid use long-term due to her lupus. Counseled patient on diagnosis of diabetes and long-term effects as well as treatment options. We will work on getting her set up for diabetic education. counseled patient.- Marjan 3 prescripti on to pharmacy, this is helping pt to better control her DM, tolerating well. Lab today. continue metformin and glipizide. if A1c remains above 7.0, consider GLP-1, as pt has already been on metfomrin and glipzide.- continue Metformin BID, will add Glipizide ER 10mg, pt is interested in Mounjaro. Will start GCM, sample placed today, pt instructed on how to use. Will refer to [facility] for Diabetic education. Metabolic dysfunction-associate d steatotic liver disease [id number] K76.0 Liver ultrasound January 2024 consistent with fatty liver disease. Will continue to monitor liver enzymes which are improving and continue Mounjaro. Plan on repeat ultrasound in a year. [id number] Sasha Payne DO [facility] ([facility]) [address] [place] [id number] 04/20/2024 14:43:38 04/20/2024 16:26:08 Drug-induced diabetes mellitus 1192260 E09.8 Secondary to steroid use long-term due to her lupus. Counseled patient on diagnosis of diabetes and long-term effects as well as treatment options. We will work on getting her set up for diabetic education. counseled patient. 04/20/24: glucose improved. continue mounjaro 10mg wkly. f /u 1 mt repeat labs prior. 01/14/24- Marjan 3 prescripti on to pharmacy, this is helping pt to better control her DM, tolerating well. Lab today. continue metformin and glipizide. if A1c remains above 7.0, consider GLP-1, as pt has already been on metfomrin and glipzide.- continue Metformin BID, will add Glipizide ER 10mg, pt is interested in Mounjaro. Will start GCM, sample placed today, pt instructed on how to use. Will refer to [facility] for Diabetic education. Sleep apnea 54950184 G47 .30 04/20/24: FACE to FACE visit performed today: , She is using her CPAP for at least7 hours per night. She has only missed 2 days in the last 45+days.. She is compliant with improved restful sleep, improved daytime sleepiness and other symptoms Using HOME. [id number] Sasha Payne DO [facility] ([facility]) [address] [place] [address] 05/20/2024 15:02:50 05/20/2024 17:13:35 Drug-induced diabetes mellitus 7387905 E09.8 Secondary to steroid use long-term due to her lupus. Counseled patient on diagnosis of diabetes and long-term effects as well as treatment options. We will work on getting her set up for diabetic education. counseled patient. 05/20/24: A1c improved to 5.8 from 7.4, continue Mounjaro 12.5 wkly. Continue working on diet, weight loss.: glucose improved. continue mounjaro 10mg wkly. f /u 1 mt repeat labs prior. 01/14/24- Marjan 3 prescripti on to pharmacy, this is helping pt to better control her DM, tolerating well. Lab today. continue metformin and glipizide. if A1c remains above 7.0, consider GLP-1, as pt has already been on metfomrin and glipzide.- continue Metformin BID, will add Glipizide ER 10mg, pt is interested in Mounjaro. Will start GCM, sample placed today, pt instructed on how to use. Will refer to [facility] for Diabetic education. Essential hypertension 51772089 I10 05/20/24: having some dizzy spells, losing weight, counseled monitor BP at home, consider decreasing Metoprolol if BP running lower after weight loss.: Stop losartan due to high engine. We will also stop isosorbide . Continue metoprolol and spironolac tone. Monitor blood pressure closely.- Continue Losartan 100mg daily, Metoprolol 100mg BID, start Spironolac tone. Administra tion of influenza vaccine 20588968 Z23 Fluvax today. Prevnar 20 at next appt. [id number] Sasha Payne DO [facility] ([facility]) [address] [place] [id number] 05/18/2024 14:52:58 05/18/2024 22:21:47 Type 2 diabetes mellitus 73523616 E11.69 03/09/24: Much improved with Mounjaro. We have had to stop metformin and glipizide due to low blood sugar. We will increase Mounjaro and stop the metformin to help improve hepatic steatosis and obesity. Secondary to steroid use long-term due to her lupus. Counseled patient on diagnosis of diabetes and long-term effects as well as treatment options. We will work on getting her set up for diabetic education. counseled patient.- Marjan 3 prescripti on to pharmacy, this is helping pt to better control her DM, tolerating well. Lab today. continue metformin and glipizide. if A1c remains above 7.0, consider GLP-1, as pt has already been on metfomrin and glipzide.- continue Metformin BID, will add Glipizide ER 10mg, pt is interested in Mounjaro. Will start GCM, sample placed today, pt instructed on how to use. Will refer to [facility] for Diabetic education. Essential hypertension 66637007 I10 03/09/24: Stop losartan due to high engine. We will also stop isosorbide . Continue metoprolol and spironolac tone. Monitor blood pressure closely.- Continue Losartan 100mg daily, Metoprolol 100mg BID, start Spironolac tone. [id number] Sasha Payne DO [facility] ([facility]) [address] [place] [address] 07/07/2024 14:44:17 07/08/2024 10:34:40 Near syncope 699284240 R55 Counseled Active standing test today. Reassured pt I don't believe this is POTS, her v/s do not reflect this. Symptoms may be r/t to Mounjaro. Discussed options of decreasing the Mounjaro, increasing protein in her diet. She will work on diet right now. Type 2 genaro brian mellitus 88072099 E11.69 07/07/24: near syncopal symptoms with Mounjaro at 15mg, she admits eating like a bird , counseled increase protein in her diet, she needs some carbs too, try to eat regularly, 3 healthy meals and 2 snacks per day, while still working on weight loss. Will keep Mounjaro at 15mg right now, consider decreasing if symptoms continue despite dietary changes. Keep appt for 09/21/23, lab prior.03/09: Much improved with Mounjaro. We have had to stop metformin and glipizide due to low blood sugar. We will increase Mounjaro and stop the metformin to help improve hepatic steatosis and obesity. Secondary to steroid use long-term due to her lupus. Counseled patient on diagnosis of diabetes and long-term effects as well as treatment options. We will work on getting her set up for diabetic education. counseled patient. 01/14/24- Marjan 3 prescripti on to pharmacy, this is helping pt to better control her DM, tolerating well. Lab today. continue metformin and glipizide. if A1c remains above 7.0, consider GLP-1, as pt has already been on metfomrin and glipzide. 12/11/23- continue Metformin BID, will add Glipizide ER 10mg, pt is interested in Mounjaro. Will start GCM, sample placed today, pt instructed on how to use. Will refer to [facility] for Diabetic education. [id number] Sasha Payne DO [facility] ([facility]) [address] [place] [phone] 09/17/2024 11:59:01 09/18/2024 10:00:22 Essential hypertension [id number] I10 05/20/24: having some dizzy spells, losing weight, counseled monitor BP at home, consider decreasing Metoprolol if BP running lower after weight loss.: Stop losartan due to high engine. We will also stop isosorbide . Continue metoprolol and spironolac tone. Monitor blood pressure closely.- Continue Losartan 100mg daily, Metoprolol 100mg BID, start Spironolac tone. Type 2 genaro betes mellitus [id number] E11.69 07/07/24: near syncopal symptoms with Mounjaro at 15mg, she admits eating like a bird , counseled increase protein in her diet, she needs some carbs too, try to eat regularly, 3 healthy meals and 2 snacks per day, while still working on weight loss. Will keep Mounjaro at 15mg right now, consider decreasing if symptoms continue despite dietary changes. Keep appt for 09/21/23, lab prior.03/09: Much improved with Mounjaro. We have had to stop metformin and glipizide due to low blood sugar. We will increase Mounjaro and stop the metformin to help improve hepatic steatosis and obesity. Secondary to steroid use long-term due to her lupus. Counseled patient on diagnosis of diabetes and long-term effects as well as treatment options. We will work on getting her set up for diabetic education. counseled patient. 01/14/24- Marjan 3 prescripti on to pharmacy, this is helping pt to better control her DM, tolerating well. Lab today. continue metformin and glipizide. if A1c remains above 7.0, consider GLP-1, as pt has already been on metfomrin and glipzide. 12/11/23- continue Metformin BID, will add Glipizide ER 10mg, pt is interested in Mounjaro. Will start GCM, sample placed today, pt instructed on how to use. Will refer to [facility] for Diabetic education. [id number] Sasha Payne DO [facility] ([facility] [address]) [address] [place] [address] 09/22/2024 14:16:01 10/12/2024 16:30:09 Type 2 diabetes mellitus [id number] E11.69 09/22/24: A1c improved from 5.8 to 5.3. Continue Mounjaro 12.5mg, continue working on weight loss, DM diet.07/07: near syncopal symptoms with Mounjaro at 15mg, she admits eating like a bird , counseled increase protein in her diet, she needs some carbs too, try to eat regularly, 3 healthy meals and 2 snacks per day, while still working on weight loss. Will keep Mounjaro at 15mg right now, consider decreasing if symptoms continue despite dietary changes. Keep appt for 09/21/23, lab prior.03/09: Much improved with Mounjaro. We have had to stop metformin and glipizide due to low blood sugar. We will increase Mounjaro and stop the metformin to help improve hepatic steatosis and obesity. Secondary to steroid use long-term due to her lupus. Counseled patient on diagnosis of diabetes and long-term effects as well as treatment options. We will work on getting her set up for diabetic education. counseled patient. 01/14/24- Marjan 3 prescripti on to pharmacy, this is helping pt to better control her DM, tolerating well. Lab today. continue metformin and glipizide. if A1c remains above 7.0, consider GLP-1, as pt has already been on metfomrin and glipzide. 12/11/23- continue Metformin BID, will add Glipizide ER 10mg, pt is interested in Mounjaro. Will start GCM, sample placed today, pt instructed on how to use. Will refer to [facility] for Diabetic education. Essential hypertension [id number] I10 05/20/24: having some dizzy spells, losing weight, counseled monitor BP at home, consider decreasing Metoprolol if BP running lower after weight loss.: Stop losartan due to high engine. We will also stop isosorbide . Continue metoprolol and spironolac tone. Monitor blood pressure closely.- Continue Losartan 100mg daily, Metoprolol 100mg BID, start Spironolac tone. Neck pain [id number] M54.2 C spine XR today. Counseled stop BC Powder, take Tylenol, consider massage then adjustment from Chiropract or. Liver enzy mes level above reference range [id number] R74.01 09/22/24: Reviewed recent [facility] lab. Counseled stop use of BC Powder, ok to use Tylenol. CMP in one month, appt after. [id number] Sasha Payne DO [facility] ([facility] [address]) [address] [place] [address] 10/21/2024 15:39:18 10/21/2024 18:01:13 Dizziness [id number] R42 10/21/24: counseled likely d/t not enough protein/ nutrients in her body, to drink a protein shake daily. Consider changing Mounjaro if this continues. Liver enzy mes level above reference range [id number] R74.01 10/21/24: Reviewed and discussed recent lab, improved.: Reviewed recent [facility] lab. Counseled stop use of BC Powder, ok to use Tylenol. CMP in one month, appt after. Neck pain 13716350 M54.2 10/21/24: Reviewed and discussed C spine XR, counseled on neck exercises. [id number] Sasha Payne DO [facility] ([facility] [address]) [address] [place] [phone] 10/20/2024 09:05:36 10/21/2024 12:40:11 Essential hypertension [id number] I10 05/20/24: having some dizzy spells, losing weight, counseled monitor BP at home, consider decreasing Metoprolol if BP running lower after weight loss.: Stop losartan due to high engine. We will also stop isosorbide . Continue metoprolol and spironolac tone. Monitor blood pressure closely.- Continue Losartan 100mg daily, Metoprolol 100mg BID, start Spironolac tone. [id number] Sasha Payne DO [facility] ([facility] [address]) [address] [place] [phone] 01/13/2025 16:51:01 01/13/2025 18:19:37 Pain in bilateral legs [id number] 4286844 M79.604 M79.605 [id number] 01/13/25: pt to start Women's one a day vitamin, Cyclobenza arnulfo to relax. Neck pain [id number] M54.2 [id number] 01/13/25: continues, consider PT. F/u 2-3 weeks.10/21: Reviewed and discussed C spine XR, counseled on neck exercises. [id number] Sasha Payne DO [facility] ([facility] [address]) [address] [place] [address] 04/01/2025 10:33:06 04/06/2025 16:04:02 Infection of tooth [id number] K04.7 [id number] Abx for 10 days, f/u with Dentist, counseled. [id number] Sasha Payne DO [facility] ([facility] [address]) [address] [place] [address] 04/13/2025 09:03:24 04/14/2025 10:49:24 Essential hypertension [id number] I10 05/20/24: having some dizzy spells, losing weight, counseled monitor BP at home, consider decreasing Metoprolol if BP running lower after weight loss.: Stop losartan due to high engine. We will also stop isosorbide . Continue metoprolol and spironolac tone. Monitor blood pressure closely.- Continue Losartan 100mg daily, Metoprolol 100mg BID, start Spironolac tone. Type 2 genaro betes mellitus [id number] E11.69 09/22/24: A1c improved from 5.8 to 5.3. Continue Mounjaro 12.5mg, continue working on weight loss, DM diet.07/07: near syncopal symptoms with Mounjaro at 15mg, she admits eating like a bird , counseled increase protein in her diet, she needs some carbs too, try to eat regularly, 3 healthy meals and 2 snacks per day, while still working on weight loss. Will keep Mounjaro at 15mg right now, consider decreasing if symptoms continue despite dietary changes. Keep appt for 09/21/23, lab prior.03/09: Much improved with Mounjaro. We have had to stop metformin and glipizide due to low blood sugar. We will increase Mounjaro and stop the metformin to help improve hepatic steatosis and obesity. Secondary to steroid use long-term due to her lupus. Counseled patient on diagnosis of diabetes and long-term effects as well as treatment options. We will work on getting her set up for diabetic education. counseled patient. 01/14/24- Marjan 3 prescripti on to pharmacy, this is helping pt to better control her DM, tolerating well. Lab today. continue metformin and glipizide. if A1c remains above 7.0, consider GLP-1, as pt has already been on metfomrin and glipzide. 12/11/23- continue Metformin BID, will add Glipizide ER 10mg, pt is interested in Mounjaro. Will start GCM, sample placed today, pt instructed on how to use. Will refer to [facility] for Diabetic education. Major depr essive disorder [id number] F32.9 stop effexor, start cymbalta. [id number] Sasha Payne DO [facility] ([facility] [address]) [address] [place] [phone] 04/20/2025 09:28:24 05/04/2025 07:57:58 Type 2 diabetes mellitus [id number] E11.69 04/20/25: Reviewed and discussed A1c, 5.3. Continue Mounjaro, increase protein in diet. Counseled on diet and exercise. F/u 4 months.08/27 04/19: A1c improved from 5.8 to 5.3. Continue Mounjaro 12.5mg, continue working on weight loss, DM diet.07/07: near syncopal symptoms with Mounjaro at 15mg, she admits eating like a bird , counseled increase protein in her diet, she needs some carbs too, try to eat regularly, 3 healthy meals and 2 snacks per day, while still working on weight loss. Will keep Mounjaro at 15mg right now, consider decreasing if symptoms continue despite dietary changes. Keep appt for 09/21/23, lab prior.03/09: Much improved with Mounjaro. We have had to stop metformin and glipizide due to low blood sugar. We will increase Mounjaro and stop the metformin to help improve hepatic steatosis and obesity. Secondary to steroid use long-term due to her lupus. Counseled patient on diagnosis of diabetes and long-term effects as well as treatment options. We will work on getting her set up for diabetic education. counseled patient. 01/14/24- Marjan 3 prescripti on to pharmacy, this is helping pt to better control her DM, tolerating well. Lab today. continue metformin and glipizide. if A1c remains above 7.0, consider GLP-1, as pt has already been on metfomrin and glipzide. 12/11/23- continue Metformin BID, will add Glipizide ER 10mg, pt is interested in Mounjaro. Will start GCM, sample placed today, pt instructed on how to use. Will refer to [facility] for Diabetic education. Morbid obesity [id number] E66.01 I counseled pt on obesity. We discussed risks and ways to loose weight. Pt to increase protein in her diet. Pt will work on diet, exercise. Essential hypertension [id number] I10 04/20/25: Stable, continue current tx, Metoprolol .05/20/24: having some dizzy spells, losing weight, counseled monitor BP at home, consider decreasing Metoprolol if BP running lower after weight loss.: Stop losartan due to high engine. We will also stop isosorbide . Continue metoprolol and spironolac tone. Monitor blood pressure closely.- Continue Losartan 100mg daily, Metoprolol 100mg BID, start Spironolac tone. Health Concerns Section Related Observation LastModified by Organization Detai ls LastModified Time None Recorded Concern Status LastModified by Organization Details LastModified Time None Recorded Advance Directives Directive None Recorded Payers Insurance Date Sequence Insurance Name Policy Number Policy Greer Covered Member ID Greer Member ID Guarantor Name 05/04/2025 1 [employer] [id number] 3 Jose Manuel Jauregui [id number] Emily Jauregui Notes Date Note Type Note Provider Name and Address Organization Details Recorded Time 10/21/2024 text/html ROS as noted in the HPI Pt presents for recheck of liver enzymes. Plan at last visit 09/22/24:liver enzymes level above reference range09/22/24: Reviewed recent [facility] lab. Counseled stop use of BC Powder, ok to use Tylenol. CMP in one month, appt after. == She has stopped the BC Powder.Lab: 09/17/24:AST 159ALT 122 10/20/24:AST 41ALT 45. She continues to feel like she may pass out upon standing, occurring randomly, nothing with pattern.Taking Hydroxyzine 25mg 2 tablets per day for anxiety. She has gone a day without it and dizziness was unchanged.Not taking any Metoclopramide right now. She is losing weight since staring Cora.She admits she is likely not eating enough, she eats once per day because she has to eat, she is not hungry.A1c was 5.3 on 09/17/24. XR C spine with slight degenerative changes on 09/22/24.Neck pain continues, spouse has told her it's because she looks down at her phone so much. Sasha PayneDO [address] [place] [address], [phone], [facility], [place]. 11/04/2024 11:26:29 01/13/2025 text/html ROS as noted in the HPI Pt presents for recheck 2 months dizziness. She continues with dizziness. When she is at home when she gets up she gets tunnel vision, everything starts to go black and she has to stand there and hold on to something until it passes. These spells last 5 mins or less. She also has facial tingling/numbness intermittently. She c/o neck pain, and she has been doing the neck exercises. She only gets temporary relief with the exercises.She would like to try a muscle relaxer. 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 She c/o jackson leg pain after sitting long periods. She has a box to prop her legs on and has started wearing compression socks, but still has pain. Sasha PayneDO [address] [place] [address], [phone], [facility], [place]. 02/11/2025 00:25:35 04/01/2025 text/html Dental painRepor ayaz by PatientHPIFor quality, patient reportspainful. For severity, patient reportssevere.ROS as noted in the HPI Pt c/o left side mouth pain, multiple teeth, radiates to left upper jaw Onset 0400 this am, woke her from sleeping.She says she has a known cavity in the left upper back tooth, had been waiting to get it pulled until it gave her problems. She did take Tylenol and BC Powder this am with some relief, not complete. Her Dentist is out of office today. Sasha PayneDO [address] [place] [address], [phone], [facility], [place]. 04/01/2025 11:35:30 04/20/2025 text/html ROS as noted in the HPI Pt presents for recheck 3 months DM, HTN, obesity. She had labs done on 04/13/25:A1c 5.3, down from 5.8 on 05/18/24. She continues Mounjaro, tolerating well, feels her weight is stuck.Diet is healthy foods, protein, admits she is eating small amounts, not eating much. She was drinking protein shakes in the am, thinks she needs to resume that. She c/o neck pain that she rates at 3/10 Sasha Payne DO [address] [place] [address], [phone], [facility], [place]. 05/04/2025 02:47:53 OBGyn Episode No OBEpisode recorded.
--- NOTE | 2025-08-11 20:16 | CTR_ITS ---
PROCEDURE INFORMATION: Exam: CT Abdomen And Pelvis With Contrast Exam date and time: 08/11/2025 8:58 PM Age: 45 years old Clinical indication: Abdominal pain; Additional info: Rlq pain, positive psoas TECHNIQUE: Imaging protocol: Computed tomography of the abdomen and pelvis with contrast. Radiation optimization: All CT scans at this facility use at least one of these dose optimization techniques: automated exposure control; mA and/or kV adjustment per patient size (includes targeted exams where dose is matched to clinical indication); or iterative reconstruction. Contrast material: OMNI 350; Contrast volume: 100 ml; Contrast route: INTRAVENOUS (IV); COMPARISON: CT ang nay abdpel [id number] 01/02/2022 3:36 PM RADIATION DOSE METRICS: Total DLP (mGy-cm): 937.21 FINDINGS: Liver: Normal. No mass. Gallbladder and biliary ducts: The gallbladder is surgically absent. Pancreas: Normal. No ductal dilation. Spleen: Normal. No splenomegaly. Adrenal glands: Normal. No mass. Kidneys and ureters: Normal. No hydronephrosis. Stomach and bowel: Slightly increased fluid in the small bowel suggests an early ileus. Distal colonic diverticula are noninflamed. Appendix: Several appendicoliths in the appendix. The appendix is distended up to 10 mm and there is mild surrounding fatty stranding indicating acute appendicitis. However there is no perforation or abscess. Intraperitoneal space: Unremarkable. No free air. No significant fluid collection. Vasculature: Unremarkable. No abdominal aortic aneurysm. Lymph nodes: Unremarkable. No enlarged lymph nodes. Urinary bladder: Unremarkable as visualized. Reproductive: The uterus and ovaries are normal for age. Bones/joints: Unremarkable. No acute fracture. Soft tissues: Unremarkable. CT/CT abdomen pelvis w con* [id number] IMPRESSION: Appendicitis. No perforation or abscess.
--- NOTE | 2025-08-11 20:17 | W.ED.ABDPA2 ---
HPI - Abdominal Pain General: Chief Complaint: Abdominal Pain Stated Complaint: RT lower abd pain,N/V Time Seen by Provider: 08/11/25 19:44 History of Present Illness: Patient is 45-year-old female with history of lupus, cholecystectomy, presents to the emergency room due to right lower quadrant pain. This started abruptly at 1600 today. This was associated with nausea and vomiting. Patient is status postcholecystectomy, however does have an intact appendix. She is unsure what brought this on. No sick contact. No change in stools. Associated Symptoms: Reports nausea and vomiting; Denies change in stool character, chills, dysuria, fever(s), hematuria and syncope Related Data Home Medications ?Medication ?Instructions ?Recorded ?Confirmed acetaminophen 500 mg tablet 500 - 1,000 mg PO PRN 12/09/19 12/15/24 (Tylenol Extra Strength) hydroxyzine HCl 25 mg tablet 25 mg PO QID PRN Anxiety 12/09/19 12/15/24 omeprazole 40 mg capsule,delayed 40 mg PO QAM 03/05/22 12/15/24 release metoprolol tartrate 50 mg tablet 100 mg PO BID 11/26/23 12/15/24 cyclobenzaprine 10 mg tablet 10 mg PO TID 05/03/25 05/03/25 duloxetine 60 mg capsule,delayed 60 mg PO DAILY 05/03/25 05/03/25 release spironolactone 50 mg tablet 50 mg PO DAILY 05/03/25 05/03/25 tirzepatide 15 mg/0.5 mL mg SUBCUT 05/03/25 05/03/25 subcutaneous pen injector (Cora) Previous Rx's ?Medication ?Instructions ?Recorded aspirin 81 mg tablet,delayed 81 mg PO DAILY #30 tabs 11/12/23 release atorvastatin 40 mg tablet 20 mg (1/2 x 40 mg) PO BEDTIME #30 11/12/23 tabs blood-glucose meter (Blood Glucose #1 ea 11/12/23 Monitoring kit) lancets #100 ea 11/12/23 pen needle, diabetic 32 gauge x #50 ea 11/12/2308/29 (BD Ultra-Fine Micro Pen Needle) prednisone 5 mg tablet 5 mg PO DAILY PRN flare #60 tabs 04/28/24 azathioprine 50 mg tablet See Rx Instructions PO .COMPLEX 05/10/25 #90 tabs Allergies Allergy/AdvReac Type Severity Reaction Status Date / Time leflunomide Allergy ADR-Vomitin Verified 09/08/24 13:45 g sulfasalazine AdvReac Severe ADR-Vomitin Verified 09/08/24 13:45 g hydroxychloroquine AdvReac Intermediate N/V Verified 09/08/24 13:45 stomach pain c diarrhea Review of Systems Const: Denies: fever(s), chills or night sweats Eyes: Denies: change in vision, blurry vision, eye discomfort or eye redness ENMT: Denies: throat pain, odynophagia, mouth pain, nasal discharge or sinus pain Card: Denies: chest pain, palpitations or syncope Resp: Denies: dyspnea, productive cough, wheezing or hemoptysis GI: Reports: abdominal pain, nausea and vomiting; Denies: change in stool character : Denies: difficulty voiding, dysuria, urinary frequency, urinary urgency or hematuria Skin/Breast: Denies: rash Neuro: Denies: weakness in extremities or seizure-like activity Psych: Denies: anxiety Endo: Denies: heat intolerance Adryan/Lymph: Denies: easy bleeding, petechiae or enlarged lymph nodes PFSH ED PFSH: Medical History (Updated 08/11/25 @ 23:23 by CHRISTIANO Landrum) SLE (systemic lupus erythematosus related syndrome) Inflammatory arthritis Undifferentiated connective tissue disease Immunization counseling High risk medication use Joint pain Positive ARDEN (antinuclear antibody) Pulmonary embolism Anxiety Depression Surgical History H/O lumpectomy Tubal ligation status History of cholecystectomy Family History Mother Atrial fibrillation Congestive heart failure (CHF) Grandmother Congestive heart failure (CHF) Sudden cardiac Other CAD (coronary artery disease) Cancer Hyperlipidemia Hypertension Denies family history of Rheumatoid arthritis Diabetes Lupus Anemia Aneurysm TIA (transient ischemic attack) Hyperthyroidism Hypothyroidism Chronic kidney disease (CKD) Congenital heart disease Carotid artery disease Lung disease Cardiomyopathy Parkinson disease Stroke Social History (Updated 12/15/24 @ 14:39 by Jasmine Mirza LPN) Smoking and tobacco/nicotine status: never used tobacco/nicotine Quit status (tobacco/nicotine): has quit using Year quit tobacco: 2019 PPD x 5 Years Second hand smoke exposure: Yes Alcohol intake: never Substance/Drug Use: never Lives independently: Yes Household members: spouse Marital status: Current occupational status: unemployed Do you think of yourself as: Straight/Heterosexual Current gender identity: Female Physical Exam Const: COMMON NORMALS: patient oriented x3 GENERAL APPEARANCE: cooperative, anxious and ill appearing HENMT: COMMON NORMALS: normocephalic and atraumatic HEAD & SCALP: normocephalic and atraumatic Lymph: LYMPHATIC: no lymphadenopathy noted Chest: COMMONS NORMALS: normal inspection of the chest and normal palpation of entire chest wall Resp: COMMON NORMALS: normal respiratory effort, No retractions and clear to auscultation bilaterally AUSCULTATION: clear to auscultation bilaterally Cardio: COMMON NORMALS: regular rate and regular rhythm RATE: regular rate RHYTHM: regular rhythm GI: COMMON NORMALS: Soft to palpation INSPECTION: Yes normal to inspection AUSCULTATION: Yes normoactive bowel sounds PALPATION: Yes Soft to palpation, Yes Tenderness to palpation present (GI) Details: RLQ, Yes Guarding due to palpation present (GI) (McBurney's point, rebound, Rovsing's, psoas all positive) in the RLQ and No Rigid due to palpation : COMMON NORMALS: Yes no CVA tenderness BLADDER/KIDNEY EXAM: Yes no CVA tenderness Back/Pelvis: COMMON NORMALS: no CVA tenderness Extremity: COMMON NORMALS: normal to inspection, full ROM and capillary refill normal Neuro: COMMON NORMALS: patient oriented x3, CN's II-XII intact bilaterally and moves all extremities Psych: COMMON NORMALS: mental status grossly normal and cooperative Skin: COMMON NORMALS: no rashes or lesions noted and no wounds GENERAL SKIN EXAM: no rashes or lesions noted Course Reevaluation(s): Reevaluation #1: Pain and nausea improved after morphine and Zofran Vital Signs: Vital signs: Vital Signs Temperature 98.0 F 08/11/25 19:35 Pulse Rate 118 H 08/11/25 23:00 Respiratory Rate 15 08/11/25 23:00 Blood Pressure 103/72 08/11/25 23:00 Pulse Oximetry 93 08/11/25 23:00 Oxygen Delivery Me thod Room Air 08/11/25 20:42 MDM - Abdominal Pain Medical Decision Making Patient is a quite pleasant patient with history of lupus, HTN, presented to the emergency room due to right lower quadrant pain that started abruptly at 1600 today. Her initial blood pressure was quite escalated on admission, with associated tachycardia, that improved after analgesic. Her psoas was positive, therefore high risk for actual appendicitis. Rovsing's, rebound, McBurney's point all positive. CT of her abdomen pelvis did show appendicitis without rupture. She does not have any leukocytosis, or prevalent neutrophils, electrolytes are stable as well without any issues, and urine analysis. Discussed the case with on-call surgeon, Dr. Cazares, advised n.p.o. after midnight, clear liquid diet until midnight, analgesic with morphine every 4 as needed, Zofran, Zosyn every 8 hours IV, and appendectomy in AM. All of patient's questions answered to her understanding. Medical Records I reviewed the patient's medical records. Lab Data I reviewed the patient's lab results. 08/11/25 20:15 08/11/25 20:15 Labs/Radiology: Radiology Impressions Abdomen/Pelvis CT 08/11/25 20:16 IMPRESSION: Appendicitis. No perforation or abscess. 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 Laboratory Results WBC 7.97 10^3/uL (3.29-11.43) 08/11/25 20:15 RBC 3.97 10^6/uL (3.85-5.65) 08/11/25 20:15 Hgb 13.40 g/dL (11.27-16.99) 08/11/25 20:15 Hct 38.4 % (36-47) 08/11/25 20:15 MCV 96.7 fl (85-98) 08/11/25 20:15 MCH 33.8 pg (27-33) H 08/11/25 20:15 MCHC 34.9 g/dL (30-55) 08/11/25 20:15 RDW 19.3 % (12.1-15.1) H 08/11/25 20:15 Plt Count 161 10^3/cmm (157-399) 08/11/25 20:15 MPV 9.0 fL (7.4-10.4) 08/11/25 20:15 Neut % (Auto) 76.9 % 08/11/25 20:15 Lymph % (Auto) 14.6 % 08/11/25 20:15 [place] % (Auto) 5.6 % 08/11/25 20:15 Eos % (Auto) 1.6 % 08/11/25 20:15 Baso % (Auto) 0.4 % 08/11/25 20:15 Neut # (Auto) 6.13 10^3/uL (1.8-7.7) 08/11/25 20:15 Lymph # (Auto) 1.2 10^3/uL (0.8-4.8) 08/11/25 20:15 [place] # (Auto) 0.5 10^3/uL (0.2-0.9) 08/11/25 20:15 Eos # (Auto) 0.1 10^3/uL (0.0-0.8) 08/11/25 20:15 Baso # (Auto) 0.0 10^3/uL (0.0-0.1) 08/11/25 20:15 Nucleated RBC % (auto) 0 % 08/11/25 20:15 Nucleated RBCs # 0.0 /100WBC 08/11/25 20:15 Sodium 138 mmol/L (136-145) 08/11/25 20:15 Potassium 3.9 mmol/L (3.5-5.1) 08/11/25 20:15 Chloride 99 mmol/L (98-107) 08/11/25 20:15 Carbon Dioxide 27 mmol/L (22-29) 08/11/25 20:15 Anion Gap 15.9 (5-19) 08/11/25 20:15 BUN 8 mg/dL (6-20) 08/11/25 20:15 Creatinine 0.7 mg/dL (0.5-0.9) 08/11/25 20:15 GFR Calculation 90.9 mL/min (90-130) 08/11/25 20:15 Glucose 101 mg/dL (65-115) 08/11/25 20:15 Calculated Osmolality 284 mOsm/kg (285-295) L 08/11/25 20:15 Calcium 9.3 mg/dL (8.5-10.5) 08/11/25 20:15 Total Bilirubin 0.9 mg/dL (0.15-1.2) 08/11/25 20:15 AST 33 U/L (0-32) H 08/11/25 20:15 ALT 24 U/L (0-33) 08/11/25 20:15 Alkaline Phosphatase 60 U/L (35-105) 08/11/25 20:15 C-Reactive Protein 4.1 mg/L (0.0-4.9) 08/11/25 20:15 Total Protein 7.9 g/dL (6.6-8.7) 08/11/25 20:15 Albumin 4.5 g/dL (3.5-5.2) 08/11/25 20:15 Globulin 3.4 g/dL (1.3-4.6) 08/11/25 20:15 Lipase 35 U/L (13-60) 08/11/25 20:15 HCG, Qual Negative (Negative) 08/11/25 20: Urine Color Yellow (Yellow) 08/11/25: Urine Appearance Clear (CLEAR) 08/11/25 20: Urine pH 6.0 (5-7) 08/11/25 20:33 Ur Specific [place] 1.012 (1.005-1.030) 08/11/25: Urine Protein Negative (Negative) 08/11/25: Urine Glucose (UA) Negative (Normal) 08/11/25 20: Urine Ketones Trace (Negative) 08/11/25 20: Urine Blood Negative (Negative) 08/11/25: Urine Nitrate Negative (Negative) 08/11/25: Urine Bilirubin Negative (Negative) 08/11/25 20: Urine Urobilinogen 1.0 mg/dL (Negative) 08/11/25 20:33 Ur Leukocyte Esterase Negative (Negative) 08/11/25 20:33 Urine RBC 0-2 /hpf (0-2) 08/11/25 20:33 Urine WBC 0-5 /hpf (0-5) 08/11/25 20:33 Ur Squamous Epith Cells 0-5 /hpf (0-5) 08/11/25 20:33 Amorphous Sediment Not Reportable 08/11/25 20:33 Urine Bacteria None seen /hpf (NONE) 08/11/25 20:33 Hyaline Casts 0-4 /lpf H 08/11/25 20:33 All radiology interpretation(s) finalized by discharge EKG Data EKG 1: Interpretation: Normal sinus rhythm, normal axis Discharge Plan Discharge Condition: Stable Prescriptions: No Action omeprazole 40 mg capsule,delayed release(DR/EC) 40 mg PO QAM metoprolol tartrate 50 mg tablet 100 mg PO BID Patient Comments: May take an additional 50mg if heart rate above 100 bpm for more than 15 minutes and BP allows prednisone 5 mg tablet 5 mg PO DAILY PRN (Reason: flare) Qty: 60 0RF cyclobenzaprine 10 mg tablet 10 mg PO TID duloxetine 60 mg capsule,delayed release(DR/EC) 60 mg PO DAILY spironolactone 50 mg tablet 50 mg PO DAILY Mounjaro 15 mg/0.5 mL pen injector SUBCUT azathioprine 50 mg tablet See Rx Instructions PO .COMPLEX Qty: 90 2RF Rx Instructions: take 2 tabs in AM and 1 tab in PM orally; acetaminophen [Tylenol Extra Strength] 500 mg Tablet 500 - 1,000 mg PO PRN hydroxyzine HCl 25 mg tablet 25 mg PO QID PRN (Reason: Anxiety) atorvastatin 40 mg Tablet 20 mg PO BEDTIME Qty: 30 0RF aspirin 81 mg Tablet,Delayed Release (Dr/Ec) 81 mg PO DAILY Qty: 30 0RF (DME) Blood Glucose Monitoring Kit See Rx Instructions .ROUTE .MEDSUPPLY Qty: 1 0RF Rx Instructions: As directed (DME) BD Ultra-Fine Micro Pen Needle 32 gauge x 1/4 needle See Rx Instructions .ROUTE .MEDSUPPLY Qty: 50 0RF Rx Instructions: As directed (DME) lancets [facility] See Rx Instructions .ROUTE .MEDSUPPLY Qty: 100 0RF Rx Instructions: As directed Referrals: Alvaro Reeves DO [Primary Care Provider, Family Practice] Patient Instructions: Abdominal Pain (ED) Print Language: Lao Coding Level of Care Code ED Real Estate Transaction Manager for Stacie Ortez
[2025-08-11 20:28] LABS: Hematocrit 38.4 % (36-47); Hemoglobin 13.40 g/dL (11.27-16.99); Mean Corpuscular HGB Conc 34.9 g/dL (30-55); Mean Corpuscular Hemoglobin 33.8 pg (27-33); Mean Corpuscular Volume 96.7 fl (85-98); Nucleated Red Blood Cells % 0 %; Platelet Count 161 10^3/cmm (157-399); Red Blood Count 3.97 10^6/uL (3.85-5.65); White Blood Count 7.97 10^3/uL (3.29-11.43)
--- NOTE | 2025-08-11 20:28 | ECG_ITS ---
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 Measurements Intervals [place] Rate: 99 P: 30 WV: 151 QRS: 24 QRSD: 94 T: 39 QT: 333 QTc: 429 Interpretive Statements SINUS RHYTHM Compared to ECG 11/11/2023 16:02:00 No significant changes Electronically Signed On 08-11-2025 21:35:05 MEDICAL ASSISTANT OB GYN by Colette Clark M.D. [email or web address]
[2025-08-11] MEDS: ondansetron 2 mg/ML SDV 2 mL 4 MG IVP (20:38)
[2025-08-11] MEDS: morphine 4 mg/mL SDV 1 mL IVP (20:38)
[2025-08-11 20:44] LABS: Glucose Urine UA Negative (Normal); Nitrate Urine Negative (Negative); Specific Gravity, Urine 1.012 (1.005-1.030)
[2025-08-11 20:48] LABS: Alanine Aminotransferase 24 U/L (0-33); Albumin Level 4.5 g/dL (3.5-5.2); Alkaline Phosphatase 60 U/L (35-105); Anion Gap 15.9 (5-19); Aspartate Amino Transferase 33 U/L (0-32); Blood Urea Nitrogen 8 mg/dL (6-20); Calcium 9.3 mg/dL (8.5-10.5); Carbon Dioxide 27 mmol/L (22-29); Chloride 99 mmol/L (98-107); Globulin 3.4 g/dL (1.3-4.6); Glucose 101 mg/dL (65-115); Lipase 35 U/L (13-60); Osmolality Calculated 284 mOsm/kg (285-295); Potassium 3.9 mmol/L (3.5-5.1); Sodium 138 mmol/L (136-145); Total Protein 7.9 g/dL (6.6-8.7)
[2025-08-11 20:49] LABS: Add Urine Microscopic? YES
[2025-08-11] MEDS: iohexol 350 mg/mL 500 mL Btl (per mL) IV (21:05)
[2025-08-11 21:11] LABS: HCG, Serum Qual Negative (Negative)
[2025-08-11] MEDS: HYDROmorphone 0.5 MG/0.5 ML INJ 1 MG IVP (22:14)
[2025-08-11] MEDS: piperacillin-tazobactam 3.375 GM in sodium chloride 0.9% (plus) 50 ML IV (22:31)
[2025-08-12] VITALS (37 sets, daily range): BP systolic 81–157; BP diastolic 45–96; PULSE 84–124; RESP 14–20; TEMP 36.2–37.9; O2SAT 90–99
--- NOTE | 2025-08-12 00:38 | PM.HP ---
Providers/Chief Complaint Admitting Physician: Harsha Brian MD Primary Care Provider: Alvaro Reeves DO Chief Complaint: RT lower abd pain,N/V History of Present Illness Emily Jauregui is a 45 year old female comes in with right lower quadrant pain starting at 4 PM. It progressively worsened and she vomited twice without blood. She has lost her appetite due to Mounjaro currently at 15 mg weekly started in the last 2 years. She lost 80 pounds. She has constipation and takes docusate and senna. She notes rectal bleeding and large hard stools that sometimes clog the toilet. The patient has chronic constipation from Mounjaro which she states may have precipitated the appendicitis. Patient has past medical history of hypertension, low lupus, diabetes, obesity. 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 CT scan showed appendicitis without rupture. Dr. Cazares was consulted and plans appendectomy tomorrow Review of Systems Narrative: General No fevers chills she has had weight loss 80 pounds in 2 years Cardiovascular no chest pain she has had tachycardia chronically and occasional leg swelling. She states she was on higher dose metoprolol but ended up with low blood pressure so dose was decreased to 25 mg once a day Respiratory no shortness of breath cough wheezing GI no blood in vomit she does have blood in stool from straining and constipation but denies hemorrhoids she is chronically constipated since Mounjaro no dysuria hematuria Neuro no seizures strokes limb weakness Malignancy history negative Heme positive for PE at age 41 which precipitated the diagnosis of lupus Endocrine office for diabetes and obesity diabetes now much improved since weight loss. Patient states she does not know have any calories she eats daily but thinks it is not very much in terms of food but she does drink 3 to 4 glasses of sweet tea a day and we discussed that that would likely be 150 monet a glass Medications/Allergies Home Medications ?Medication ?Instructions ?Recorded ?Confirmed ?Last Taken ?Type acetaminophen 500 mg tablet 500 - 1,000 mg PO PRN 12/09/19 12/15/24 Unknown History (Tylenol Extra Strength) hydroxyzine HCl 25 mg tablet 25 mg PO QID PRN Anxiety 12/09/19 12/15/24 11/11/23 12:00 History omeprazole 40 mg capsule,delayed 40 mg PO QAM 07/11/22 04/22/25 03/18/24 12:00 History release aspirin 81 mg tablet,delayed 81 mg PO DAILY #30 tabs 11/12/23 12/15/24 Unknown Rx release atorvastatin 40 mg tablet 20 mg (1/2 x 40 mg) PO BEDTIME #30 11/12/23 12/15/24 Unknown Rx tabs blood-glucose meter (Blood Glucose #1 ea 11/12/23 12/15/24 Unknown Rx Monitoring kit) lancets #100 ea 11/12/23 12/15/24 Unknown Rx pen needle, diabetic 32 gauge x #50 ea 11/12/23 12/15/24 Unknown Rx 1/4 (BD Ultra-Fine Micro Pen Needle) metoprolol tartrate 50 mg tablet 100 mg PO BID 11/26/23 12/15/24 Unknown History prednisone 5 mg tablet 5 mg PO DAILY PRN flare #60 tabs 04/28/24 12/15/24 Unknown Rx cyclobenzaprine 10 mg tablet 10 mg PO TID 05/03/25 05/03/25 Unknown History duloxetine 60 mg capsule,delayed 60 mg PO DAILY 05/03/25 05/03/25 Unknown History release spironolactone 50 mg tablet 50 mg PO DAILY 05/03/25 05/03/25 Unknown History tirzepatide 15 mg/0.5 mL mg SUBCUT 05/03/25 05/03/25 Unknown History subcutaneous pen injector (Cora) azathioprine 50 mg tablet See Rx Instructions PO .COMPLEX 05/10/25 Unknown Rx #90 tabs Allergies Allergy/AdvReac Type Severity Reaction Status Date / Time leflunomide Allergy ADR-Vomitin Verified 09/08/24 13:45 g sulfasalazine AdvReac Severe ADR-Vomitin Verified 09/08/24 13:45 g hydroxychloroquine AdvReac Intermediate N/V Verified 09/08/24 13:45 stomach pain c diarrhea PFSH Acute PFSH: Medical History (Updated 08/12/25 @ 00:48 by Harsha Brian MD) Diabetes History of pulmonary embolism SLE (systemic lupus erythematosus related syndrome) Inflammatory arthritis Undifferentiated connective tissue disease Immunization counseling High risk medication use Joint pain Positive ARDEN (antinuclear antibody) Pulmonary embolism Anxiety Depression Surgical History H/O lumpectomy Tubal ligation status History of cholecystectomy Family History Mother Atrial fibrillation Congestive heart failure (CHF) Grandmother Congestive heart failure (CHF) Sudden cardiac Other CAD (coronary artery disease) Cancer Hyperlipidemia Hypertension Denies family history of Rheumatoid arthritis Diabetes Lupus Anemia Aneurysm TIA (transient ischemic attack) Hyperthyroidism Hypothyroidism Chronic kidney disease (CKD) Congenital heart disease Carotid artery disease Lung disease Cardiomyopathy Parkinson disease Stroke Social History (Updated 12/15/24 @ 14:39 by Jasmine Mirza LPN) Smoking and tobacco/nicotine status: never used tobacco/nicotine Quit status (tobacco/nicotine): has quit using Year quit tobacco: 2020 - PPD x 5 Years Second hand smoke exposure: Yes Alcohol intake: never Substance/Drug Use: never Lives independently: Yes Household members: spouse Marital status: Current occupational status: unemployed Do you think of yourself as: Straight/Heterosexual Current gender identity: Female Vitals/I&O/Wt Last Vital Signs Temp 98.0 F 08/11/25 19:35 Pulse 112 H 08/12/25 00:15 Resp 18 08/11/25 23:30 BP 112/67 08/12/25 00:15 Pulse Ox 93 08/12/25 00:15 O2 Del Method Room Air 08/11/25 23:30 08/11/25 08/11/25 08/12/25 14:59 22:59 06:59 Intake Total 50 / 50 Balance 50 / 50 Weight last 48 hrs Weight 86.183 kg Physical Exam Narrative: General Well-developed obese female in no acute cardiopulmonary stress Oropharynx Mallampati 3 CV regular tachycardic rhythm and rate no loud murmur Lungs clear to auscultation except for trace basilar crackles or right lower lung Abdomen positive bowel tones soft right lower quadrant tenderness noted without rebound Calves 1+ edema Skin skin warm and dry Mentation alert and orient x 3 good historian Data 08/11/25 20:15 08/11/25 20:15 A&P Assessment and plan 1. Acute appendicitis: Patient is n.p.o. after midnight for surgery in the morning with Dr. Cazares 2. SLE (systemic lupus erythematosus related syndrome): Patient takes azathioprine which is held. She also takes prednisone 5 mg daily as needed flare estimates that she took it for 14 days in the last 1 year. Consider stress dose steroids if hypotensive perioperatively 3. Obstructive sleep apnea: Monitor for sleep apnea and resume home CPAP if available 4. History of pulmonary embolism: Continue with DVT prophylaxis in the perioperative period 5. Diabetes: I have encouraged the patient to stop sweet tea. Goal weight loss 2 pounds a week on the Mounjaro and try to get to a BMI around 25 to resolve the diabetes. Will check A1c. Recommended caloric intake 1600 monet once she is taking solid food postoperatively PDMP PDMP Reviewed: Not Reviewed Attestations Medical Necessity Statement*: Patient is admitted to the hospital for acute cholecystitis and anticipate that she will be here 1 to 2 midnights Coding Level of Care Code 94831 Diagnoses Acute appendicitis K35.80 SLE (systemic lupus erythematosus related syndrome) M32.9 Obstructive sleep apnea G47.33 History of pulmonary embolism Z86.711 Diabetes E11.9 Time Spent (min) 57
[2025-08-12] MEDS: sodium chlor 0.9% + KCl 20 mEq 20 MEQ/1,000 ML BAG 125 MEQ IV (01:18)
[2025-08-12] MEDS: HYDROmorphone 0.5 MG/0.5 ML INJ IVP ×2 (01:54→06:06)
[2025-08-12 02:26] LABS: Magnesium 2.1 mg/dL (1.7-2.3)
--- NOTE | 2025-08-12 07:35 | ANES.PREANE2 ---
Pre-Anesthetic Assessment Height/Weight: Height 5 ft 2 in Weight 190 lb Temp Pulse Resp BP Pulse Ox O2 Del Method O2 Flow Rate 100.3 F H 122 H 20 H 101/70 90 Room Air 2 08/12/25 06:50 08/12/25 06:50 08/12/25 06:50 08/12/25 06:50 08/12/25 06:50 08/12/25 06:50 08/12/25 03:44 Preop Diagnosis: Acute appendicitis Operation Date: 08/12/25 07:50 Proposed Procedures p Laparoscopic Appendectomy(Not Applicable) - Gregory Cazares MD Was Beta Melany taken within 24 hours: N/A Was Clonidine taken within 24 hours: N/A Last intake: Intake Last Solid Date 08/11/25 Last Solid Time 16:00 Social No alcohol and No tobacco Exam alert, oriented x 3, clear to auscultation bilaterally and regular rate & rhythm Airway Submandibular: within normal limits Cervical ROM: within normal limits Mallampati: Class III Dentition: full Anesthetic Plan ASA status: 3 Anesthesia: General Other: Patient presents overnight with acute appendicitis. Currently tachycardic and febrile No prior issues with anesthesia NPO since 2 days ago History of hypertension on metoprolol GERD on omeprazole tirzepatide taken on Saturday Labs reviewed from today, hemoglobin 13.4 Electrolytes stable EKG sinus rhythm Plan for GETA with RSI Medications/Allergies Home Medications ?Medication ?Instructions ?Recorded ?Confirmed ?Last Taken ?Type acetaminophen 500 mg tablet 500 - 1,000 mg PO PRN 12/09/19 12/15/24 Unknown History (Tylenol Extra Strength) hydroxyzine HCl 25 mg tablet 25 mg PO QID PRN Anxiety 12/09/19 12/15/24 11/11/23 12:00 History omeprazole 40 mg capsule,delayed 40 mg PO QAM 03/05/22 12/15/24 11/11/23 12:00 History release aspirin 81 mg tablet,delayed 81 mg PO DAILY #30 tabs 11/12/23 12/15/24 Unknown Rx release atorvastatin 40 mg tablet 20 mg (1/2 x 40 mg) PO BEDTIME #30 11/12/23 12/15/24 Unknown Rx tabs blood-glucose meter (Blood Glucose #1 ea 11/12/23 12/15/24 Unknown Rx Monitoring kit) lancets #100 ea 11/12/23 12/15/24 Unknown Rx pen needle, diabetic 32 gauge x #50 ea 11/12/23 12/15/24 Unknown Rx 1/4 (BD Ultra-Fine Micro Pen Needle) metoprolol tartrate 50 mg tablet 100 mg PO BID 11/26/23 12/15/24 Unknown History prednisone 5 mg tablet 5 mg PO DAILY PRN flare #60 tabs 04/28/24 12/15/24 Unknown Rx cyclobenzaprine 10 mg tablet 10 mg PO TID 05/03/25 05/03/25 Unknown History duloxetine 60 mg capsule,delayed 60 mg PO DAILY 05/03/25 05/03/25 Unknown History release spironolactone 50 mg tablet 50 mg PO DAILY 05/03/25 05/03/25 Unknown History tirzepatide 15 mg/0.5 mL mg SUBCUT 05/03/25 05/03/25 Unknown History subcutaneous pen injector (Cora) azathioprine 50 mg tablet See Rx Instructions PO .COMPLEX 05/10/25 Unknown Rx #90 tabs Allergies Allergy/AdvReac Type Severity Reaction Status Date / Time leflunomide Allergy ADR-Vomitin Verified 09/08/24 13:45 g sulfasalazine AdvReac Severe ADR-Vomitin Verified 09/08/24 13:45 g hydroxychloroquine AdvReac Intermediate N/V Verified 09/08/24 13:45 stomach pain c diarrhea Current Medications Generic Name Dose Route Start Last Admin Trade Name Freq PRN Reason Stop Dose Admin Aspirin 81 mg 08/12/25 05:00 08/12/25 06:05 Aspirin 81 Mg Ec Tablet PO Not Given On Hold: 08/12/25 06:37 DAILY CORNELIA Comment: Order held by Process Transfer Cyclobenzaprine HCl 10 mg 08/12/25 05:00 08/12/25 06:04 Cyclobenzaprine 10 Mg Tablet PO Not Given On Hold: 08/12/25 06:37 TID CORNELIA Comment: Order held by Process Transfer Docusate Sodium 100 mg 08/12/25 05:00 08/12/25 06:03 Docusate Sodium 100 Mg Capsule PO 100 mg On Hold: 08/12/25 06:37 BID CORNELIA Administration Comment: Order held by Process Transfer Duloxetine HCl 60 mg 08/12/25 05:00 08/12/25 06:02 Duloxetine 60 Mg Capsule PO 60 mg On Hold: 08/12/25 06:37 DAILY CORNELIA Administration Comment: Order held by Process Transfer Heparin Sodium (Porcine) 5,000 unit 08/12/25 05:00 08/12/25 06:04 Heparin 5,000 Unit/Ml Inj 1 Ml SUBCUT Not Given On Hold: 08/12/25 06:37 TID CORNELIA Comment: Order held by Process Transfer Hydromorphone HCl 0.5 mg 08/12/25 01:26 08/12/25 06:06 Hydromorphone 0.5 Mg/0.5 Ml Inj IVP 0.5 mg On Hold: 08/12/25 06:37 Q4H PRN Administration Comment: Order held by Process SEVERE PAIN Transfer Potassium Chloride/Sodium Chloride 20 meq in 1,000 mls @ 125 mls/hr 08/12/25 00:30 08/12/25 01:18 Sodium Chlor 0.9% + Kcl 20 Meq IV 125 mls/hr On Hold: 08/12/25 06:37 .Q8H CORNELIA Administration Comment: Order held by Process Transfer Ketorolac Tromethamine 30 mg 08/12/25 00:31 08/12/25 01:18 Ketorolac 30 Mg/Ml Inj IVP 08/17/25 00:30 30 mg On Hold: 08/12/25 06:37 Q6H PRN Administration Comment: Order held by Process MODERATE PAIN Transfer Magnesium Hydroxide 30 ml 08/12/25 05:00 08/12/25 06:03 Magnesium Hydroxide 30 Ml Udc PO Not Given On Hold: 08/12/25 06:37 DAILY CORNELIA Comment: Order held by Process Protocol Transfer Metoprolol Tartrate 25 mg 08/12/25 00:30 08/12/25 01:18 Metoprolol Tartrate 50 Mg Tablet PO 25 mg On Hold: 08/12/25 06:37 BID CORNELIA Administration Comment: Order held by Process Transfer Pantoprazole Sodium 40 mg 08/12/25 05:00 08/12/25 06:[address] 40 Mg Tablet PO 40 mg On Hold: 08/12/25 06:37 DAILY CORNELIA Administration Comment: Order held by Process Transfer [facility] Anesthesia Medical History (Updated 08/12/25 @ 00:48 by Harsha Brian MD) Diabetes History of pulmonary embolism SLE (systemic lupus erythematosus related syndrome) Inflammatory arthritis Undifferentiated connective tissue disease Immunization counseling High risk medication use Joint pain Positive ARDEN (antinuclear antibody) Pulmonary embolism Anxiety Depression Surgical History H/O lumpectomy Tubal ligation status History of cholecystectomy Family History Mother Atrial fibrillation Congestive heart failure (CHF) Grandmother Congestive heart failure (CHF) Sudden cardiac Other CAD (coronary artery disease) Cancer Hyperlipidemia Hypertension Denies family history of Rheumatoid arthritis Diabetes Lupus Anemia Aneurysm TIA (transient ischemic attack) Hyperthyroidism Hypothyroidism Chronic kidney disease (CKD) Congenital heart disease Carotid artery disease Lung disease Cardiomyopathy Parkinson disease Stroke Social History (Updated 12/15/24 @ 14:39 by Jasmine Mirza LPN) Smoking and tobacco/nicotine status: never used tobacco/nicotine Quit status (tobacco/nicotine): has quit using Year quit tobacco: 2020 - PPD x 5 Years Second hand smoke exposure: Yes Alcohol intake: never Substance/Drug Use: never Lives independently: Yes Household members: spouse Marital status: Current occupational status: unemployed Do you think of yourself as: Straight/Heterosexual Current gender identity: Female Data Anesthesia 08/11/25 20:15 08/11/25 20:15 Short CBC 08/11/25 Range/Units 20:15 WBC 7.97 (3.29-11.43) 10^3/uL Hgb 13.40 (11.27-16.99) g/dL Hct 38.4 (36-47) % MCV 96.7 (85-98) fl Plt Count 161 (157-399) 10^3/cmm Neut % (Auto) 76.9 % Neut # (Auto) 6.13 (1.8-7.7) 10^3/uL BMP 08/11/25 20:15 Sodium 138 Potassium 3.9 Chloride 99 Carbon Dioxide 27 BUN 8 Creatinine 0.7 Glucose 101 Calcium 9.3 Liver Function 08/11/25 Range/Units 20:15 Total Bilirubin 0.9 (0.15-1.2) mg/dL AST 33 H (0-32) U/L ALT 24 (0-33) U/L Alkaline Phosphatase 60 (35-105) U/L Albumin 4.5 (3.5-5.2) g/dL Urine 08/11/25 Range/Units 20:33 Urine Color Yellow (Yellow) Urine Appearance Clear (CLEAR) Urine pH 6.0 (5-7) Ur Specific Mackay 1.012 (1.005-1.030) Urine Protein Negative (Negative) Urine Glucose (UA) Negative (Normal) Urine Ketones Trace (Negative) Urine Nitrate Negative (Negative) Urine Bilirubin Negative (Negative) Ur Leukocyte Esterase Negative (Negative) Urine RBC 0-2 (0-2) /hpf Urine WBC 0-5 (0-5) /hpf Coags 08/11/25 20:15 C-Reactive Protein 4.1 Cardiac Studies: Echocardiogram 11/11/23 Echocardiogram Ultrasound 12/09/19 Sestamibi Stress Test (Cardiology) 11/05/23 Holter Monitor 11/26/23
--- NOTE | 2025-08-12 08:15 | PC.NURSE ---
pt arrived in OPS for surgery prep the nurse brought the pt down by wheel chair and had them get into the gurney. it was noticed that the pt still had rings on her hand pt states that they could be removed. jewelry was removed and placed into a bag it was then discovered that the pt had brought her purse to pre op area. pt stated that the director of orthopedics related to her that she needed to bring her purse and that she did not want to be responsible for it. the pre op nurse placed the bag with the pt jewelry and her glasses into her purse and walked them back to the room she was staying in. the pre op nurse spoke with the overnight charge nurse about the pt belongings and both the charge and pre op nurses walked the purse with her jewelry and glasses back into her room and placed [facility] in [facility]
--- NOTE | 2025-08-12 08:20 | PM.CONSULT ---
Providers/Reason For Consult Consulting Physician/Specialty*: Dr. Cazares general surgery Reason for Consult*: Appendicitis Attending Physician: Jacqueline Carrillo NP Primary Care Provider: Alvaro Reeves DO History of Present Illness History of Present Illness Emily Jauregui is a 45 year old female who presented with acute uncomplicated appendicitis. Patient reported about 24 hours of pain in the right lower quadrant and nausea. Multiple comorbidities. Abdomen tender right lower quadrant. Positive psoas Medications/Allergies Home Medications ?Medication ?Instructions ?Recorded ?Confirmed ?Last Taken ?Type acetaminophen 500 mg tablet 500 - 1,000 mg PO PRN 12/09/19 12/15/24 Unknown History (Tylenol Extra Strength) hydroxyzine HCl 25 mg tablet 25 mg PO QID PRN Anxiety 12/09/19 12/15/24 11/11/23 12:00 History omeprazole 40 mg capsule,delayed 40 mg PO QAM 03/05/22 12/15/24 11/11/23 12:00 History release aspirin 81 mg tablet,delayed 81 mg PO DAILY #30 tabs 11/12/23 12/15/24 Unknown Rx release atorvastatin 40 mg tablet 20 mg (1/2 x 40 mg) PO BEDTIME #30 11/12/23 12/15/24 Unknown Rx tabs blood-glucose meter (Blood Glucose #1 ea 11/12/23 12/15/24 Unknown Rx Monitoring kit) lancets #100 ea 11/12/23 12/15/24 Unknown Rx pen needle, diabetic 32 gauge x #50 ea 11/12/23 12/15/24 Unknown Rx 1/4 (BD Ultra-Fine Micro Pen Needle) metoprolol tartrate 50 mg tablet 100 mg PO BID 11/26/23 12/15/24 Unknown History prednisone 5 mg tablet 5 mg PO DAILY PRN flare #60 tabs 04/28/24 12/15/24 Unknown Rx cyclobenzaprine 10 mg tablet 10 mg PO TID 05/03/25 05/03/25 Unknown History duloxetine 60 mg capsule,delayed 60 mg PO DAILY 05/03/25 05/03/25 Unknown History release spironolactone 50 mg tablet 50 mg PO DAILY 05/03/25 05/03/25 Unknown History tirzepatide 15 mg/0.5 mL mg SUBCUT 05/03/25 05/03/25 Unknown History subcutaneous pen injector (Mounjaro) azathioprine 50 mg tablet See Rx Instructions PO .COMPLEX 05/10/25 Unknown Rx #90 tabs Allergies Allergy/AdvReac Type Severity Reaction Status Date / Time leflunomide Allergy ADR-Vomitin Verified 09/08/24 13:45 g sulfasalazine AdvReac Severe ADR-Vomitin Verified 09/08/24 13:45 g hydroxychloroquine AdvReac Intermediate N/V Verified 09/08/24 13:45 stomach pain c diarrhea Current Medications Generic Name Dose Route Start Last Admin Trade Name Freq PRN Reason Stop Dose Admin Aspirin 81 mg 08/12/25 05:00 08/12/25 06:05 Aspirin 81 Mg Ec Tablet PO Not Given On Hold: 08/12/25 06:37 DAILY CORNELIA Comment: Order held by Process Transfer Cyclobenzaprine HCl 10 mg 08/12/25 05:00 08/12/25 06:04 Cyclobenzaprine 10 Mg Tablet PO Not Given On Hold: 08/12/25 06:37 TID CORNELIA Comment: Order held by Process Transfer Docusate Sodium 100 mg 08/12/25 05:00 08/12/25 06:03 Docusate Sodium 100 Mg Capsule PO 100 mg On Hold: 08/12/25 06:37 BID CORNELIA Administration Comment: Order held by Process Transfer Duloxetine HCl 60 mg 08/12/25 05:00 08/12/25 06:02 Duloxetine 60 Mg Capsule PO 60 mg On Hold: 08/12/25 06:37 DAILY CORNELIA Administration Comment: Order held by Process Transfer Heparin Sodium (Porcine) 5,000 unit 08/12/25 05:00 08/12/25 06:04 Heparin 5,000 Unit/Ml Inj 1 Ml SUBCUT Not Given On Hold: 08/12/25 06:37 TID CORNELIA Comment: Order held by Process Transfer Hydromorphone HCl 0.5 mg 08/12/25 01:26 08/12/25 06:06 Hydromorphone 0.5 Mg/0.5 Ml Inj IVP 0.5 mg On Hold: 08/12/25 06:37 Q4H PRN Administration Comment: Order held by Process SEVERE PAIN Transfer Potassium Chloride/Sodium Chloride 20 meq in 1,000 mls @ 125 mls/hr 08/12/25 00:30 08/12/25 01:18 Sodium Chlor 0.9% + Kcl 20 Meq IV 125 mls/hr On Hold: 08/12/25 06:37 .Q8H CORNELIA Administration Comment: Order held by Process Transfer Ketorolac Tromethamine 30 mg 08/12/25 00:31 08/12/25 01:18 Ketorolac 30 Mg/Ml Inj IVP 08/17/25 00:30 30 mg On Hold: 08/12/25 06:37 Q6H PRN Administration Comment: Order held by Process MODERATE PAIN Transfer Magnesium Hydroxide 30 ml 08/12/25 05:00 08/12/25 06:03 Magnesium Hydroxide 30 Ml Udc PO Not Given On Hold: 08/12/25 06:37 DAILY CORNELIA Comment: Order held by Process Protocol Transfer Metoprolol Tartrate 25 mg 08/12/25 00:30 08/12/25 01:18 Metoprolol Tartrate 50 Mg Tablet PO 25 mg On Hold: 08/12/25 06:37 BID CORNELIA Administration Comment: Order held by Process Transfer Pantoprazole Sodium 40 mg 08/12/25 05:00 08/12/25 06:[address] 40 Mg Tablet PO 40 mg On Hold: 08/12/25 06:37 DAILY CORNELIA Administration Comment: Order held by Process Transfer PFSH Acute PFSH: Medical History (Updated 08/12/25 @ 00:48 by Harsha Brian MD) Diabetes History of pulmonary embolism SLE (systemic lupus erythematosus related syndrome) Inflammatory arthritis Undifferentiated connective tissue disease Immunization counseling High risk medication use Joint pain Positive ARDEN (antinuclear antibody) Pulmonary embolism Anxiety Depression Surgical History H/O lumpectomy Tubal ligation status History of cholecystectomy Family History Mother Atrial fibrillation Congestive heart failure (CHF) Grandmother Congestive heart failure (CHF) Sudden cardiac Other CAD (coronary artery disease) Cancer Hyperlipidemia Hypertension Denies family history of Rheumatoid arthritis Diabetes Lupus Anemia Aneurysm TIA (transient ischemic attack) Hyperthyroidism Hypothyroidism Chronic kidney disease (CKD) Congenital heart disease Carotid artery disease Lung disease Cardiomyopathy Parkinson disease Stroke Social History (Updated 12/15/24 @ 14:39 by Jasmine Mirza LPN) Smoking and tobacco/nicotine status: never used tobacco/nicotine Quit status (tobacco/nicotine): has quit using Year quit tobacco: 2020 - 1 PPD x 5 Years Second hand smoke exposure: Yes Alcohol intake: never Substance/Drug Use: never Lives independently: Yes Household members: spouse Marital status: Current occupational status: unemployed Do you think of yourself as: Straight/Heterosexual Current gender identity: Female Vitals/I&O/Wt Last Vital Signs Temp 100.3 F H 08/12/25 06:50 Pulse 122 H 08/12/25 06:50 Resp 20 H 08/12/25 06:50 BP 101/70 08/12/25 06:50 Pulse Ox 90 08/12/25 06:50 O2 Del Method Room Air 08/12/25 06:50 O2 Flow Rate 2 08/12/25 03:44 08/11/25 08/12/25 08/12/25 22:59 06:59 14:59 Intake Total 150 / 150 Output Total 300 / 300 Balance -150 / -150 Weight last 48 hrs Weight 190 lb Weight 190 lb Physical Exam Narrative: Chest: Unlabored breathing room air. No lymphadenopathy. Heart: Regular rate and rhythm. Abdomen: Soft, tender right lower quadrant. Positive psoas Data 08/11/25 20:15 08/11/25 20:15 A&P Assessment and plan 1. Acute appendicitis: Plan: 45-year-old female who presented with acute uncomplicated appendicitis. I had an extensive discussion with the patient and answered all questions. I have discussed non operative/non procedural options and the patient still decides to proceed. Discussed risks and benefits of laparoscopic appendectomy possible open and patient decides to proceed. Patient understands the risks include bleeding, infection, periappendiceal abscess, leak from staple line, bladder injury, colonic injury, small bowel injury, bladder injury, and still decides to proceed. Patient understands that if the appendix is perforated and it is difficult to dissect we might just treat her with antibiotics peritoneal drains with the possibility of an interval appendectomy. Answered all of her questions. PDMP PDMP Reviewed: Not Reviewed Coding Level of Care Code 55052 Diagnoses Acute appendicitis K35.80
--- OUTSIDE RECORDS SUMMARY | 2025-08-12 08:22 | XMS_ITS | Clinical Summary ---
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
--- OUTSIDE RECORDS SUMMARY | 2025-08-12 08:23 | XMS_ITS | Encounter Summary ---
Author Organization [facility] Address [address] [place] [address] Care Team Providers Care Rn Angiography Name Role Phone Unavailable Primary Care Provider Unavailabl e Encounter Details Date Type Department Care Team (Latest Contact Info) Description 03/25/2001 Outpatient Historical 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
--- OUTSIDE RECORDS SUMMARY | 2025-08-12 08:23 | XMS_ITS | Encounter Summary ---
Author Organization [facility] Address [address] [place] [address] Care Team Providers Care Wall Cleaner Name Role Phone Unavailable Primary Care Provider Unavailabl e Encounter Details Date Type Department Care Team (Latest Contact Info) Description 12/18/2000 Outpatient Historical 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
--- OUTSIDE RECORDS SUMMARY | 2025-08-12 08:23 | XMS_ITS | Encounter Summary ---
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
--- OUTSIDE RECORDS SUMMARY | 2025-08-12 08:23 | XMS_ITS | Encounter Summary ---
Author Organization [facility] Address [address] [place] [address] Care Team Providers Care [facility] Shift Lead Name Role Phone Unavailable Primary Care Provider Unavailabl e Encounter Details Date Type Department Care Team (Latest Contact Info) Description 01/16/2001 Outpatient Historical 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
--- OUTSIDE RECORDS SUMMARY | 2025-08-12 08:23 | XMS_ITS | Clinical Summary ---
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
[2025-08-12] MEDS: piperacillin-tazobactam 3.375 GM in sodium chloride 0.9% (plus) 50 ML IV ×2 (08:25→16:34)
[2025-08-12] MEDS: BUPivacaine 0.25% INJ 10 mL INJECTION (08:59)
[2025-08-12] MEDS: lidocaine-epi 1% 20 mL INJ INJECTION (08:59)
--- NOTE | 2025-08-12 09:44 | PC.CHAP ---
Pastoral Care Encounter/Spiritual Assessment Type of Contact [] Declined glue reel operator visit [] Patient/Family/Request visit [] Outpatient visit [] Follow-up visit [] Physician referral [] Code/Alert [] Routine visit [] Staff referral [] Actively dying [] Patient sleeping [] Family support [] [x] Out of room [] Palliative care [] [] Receiving care in room [] Pre-surgical visit [] Trauma [] Long length of stay [] ICU visit [] Other: Relational/Emotional Strength [] Patient feels connected with others/family/visitors/staff [] Distress [] Loneliness/isolation [] Abandonment Spirituality of Patient [] Person of Umu [] Attends Buddhist of their Umu [] Believes in Prayer [] Reads Bible or Quaker materials [] There are Spiritual issues to be addressed Runstitching Machine Operator Interventions [] Prayer [] Active listening [] Non-anxious presence [] Spiritual/emotional support [] Crisis/trauma care [] Spiritual counseling [] Bereavement support [] Provided bereavement packet [] Provided Bible/devotional materials [] Provided toy/stuffed animal, coloring book to patient or family member [] Provided Communion [] Anointing/[place] [] Salvation [] Completed spiritual assessment [] Other: Impact on Illness or Injury [] Angry [] Fearful [] Anxious [] Often cries [] Exhaustion [] Unable to work [] Unable to attend congregation [] Unable to walk/stand [] Unable to read [] Unable to drive [] Unable to eat/drink [] Unable to sleep [] Unable to be with family [] Patient intubated [] Other: Summary Time spent with patient
--- NOTE | 2025-08-12 09:49 | PC.PHAR ---
Pt in procedure. Verified medications with [facility] with last fill date and day supply entered in pharmacy notes.
--- NOTE | 2025-08-12 10:52 | PM.MISC ---
Miscellaneous Note Note: tried updating at number provided. no response Jose Manuel Jauregui ()
--- NOTE | 2025-08-12 10:53 | PM.OP ---
Operative Report Date of procedure: August 12, 2025 Pre-op diagnosis: Acute uncomplicated appendicitis Post-op diagnosis: same Post-op findings: Acute uncomplicated appendicitis. No periappendiceal abscess. Procedure done: Laparoscopic appendectomy Implants: N/A Specimens removed/disposition: Appendix sent to pathology Pathology: Appendix sent to pathology Surgeon: Gregory Cazares MD Community Arts Officer: N/A Anesthesia: General Estimated blood loss (mL): 10 Complications: N/A Findings: Acute uncomplicated appendicitis. No periappendiceal abscess. Brief History: 45-year-old female who presented with acute uncomplicated appendicitis. Discussed risk and benefits and patient agreed to proceed with laparoscopic appendectomy possible open. Procedure: After having a discussion about risks and benefits and obtaining consent from POA, patient was brought to the OR. SCDs were functioning prior to intubation. Zosyn was given 45min prior to incision. General anesthesia was administered. Arms were tucked. Patient voided prior to the procedure and therefore a Mercedes catheter was not placed. The abdomen was prepped and draped in the usual sterile fashion. Insufflation was achieved using a Veress needle at Yang's point (15mmHg). A 5mm port was placed at the umbilicus using an optical view port. Then a 5mm port was placed suprapubically, and a 12mm port was placed in the left lower quadrant. The abdomen was inspected and no injuries were noted. Patient was placed in Trendelenburg and the table was rotated left. Using atraumatic bowel graspers the small bowel was placed on the left side of the abdomen, revealing the cecum and inflammed appendix. The appendix was dissected off the pelvic side wall bluntly. The appendix was grasped and the mesoappendix was taken down using a Ligasure. The base of the appendix was found to be intact. I proceeded to staple off the appendix at its base using a laparoscopic stapler with a blue load. The appendix was then retrieved using an endocatch bag. The staple line on the cecum was inspected, and found to be intact. I proceeded to close the 15mm port using an 0 vicryl with a UR6 needle under laparosopic visualization. The abdomen was desufflated and skin was closed using 4-0 monocryl and surgical glue. Mercedes was removed at the end of the case. The patient woke up from anesthesia and was transferred to PACU without any complications
--- NOTE | 2025-08-12 10:57 | PM.MISC ---
Miscellaneous Note Note: From a surgical perspective okay to discharge if tolerating a diet and pain is under control.
--- NOTE | 2025-08-12 11:04 | ANE.PACU2 ---
Inpatient post-anesthesia follow up: Airway intact: Yes Vital signs: Temperature 98.3 F Pulse Rate 105 Respiratory Rate 17 Blood Pressure 97/61 Pulse Oximetry 96 Oxygen Delivery Me thod Room Air Oxygen Flow Rate 1.5 Fraction of Inspir ed Oxygen Hydration adequate: Yes Nausea and vomiting: No Pain level: 1 Mental status: Baseline
[2025-08-12] MEDS: heparin 5,000 unit/mL INJ 1 mL 5000 UNIT SUBCUT ×2 (12:33→20:26)
[2025-08-12] MEDS: HYDROcodone-acetaminophen 5-325 mg Tablet 1 TAB PO ×2 (15:26→23:45)
--- NOTE | 2025-08-12 17:02 | PC.NURSE ---
MARLINE Phillips stated to hold metoprolol 25mg due to blood pressure. Nurse Practitioner to order midodrine.
--- NOTE | 2025-08-12 18:59 | PC.NURSE ---
MARLINE Phillips verbally ordered simithicone tablets 80mg QID PRN.
[2025-08-13 04:00] VITALS: BP 119/67; PULSE 120; RESP 17; TEMP 36.8; O2SAT 94
[2025-08-13] MEDS: heparin 5,000 unit/mL INJ 1 mL 5000 UNIT SUBCUT (04:43)
[2025-08-13] MEDS: HYDROcodone-acetaminophen 5-325 mg Tablet 1 TAB PO (04:43)
--- NOTE | 2025-08-13 07:35 | PM.DCS ---
Discharge Providers Date of Admission: 08/11/25 22:56 Date of Discharge: August 12, 2025 Attending Provider at Admission: Harsha Brian MD Attending Provider at Discharge: Jacqueline Carrillo NP Primary Care Provider: Alvaro Reeves DO Diagnoses at Discharge Discharge Diagnosis 1. Acute appendicitis: Reason for Visit Reason for Visit: RT lower abd pain,N/V Brief History: Admission: Emily Jauregui is a 45 year old female comes in with right lower quadrant pain starting at 4 PM. It progressively worsened and she vomited twice without blood. She has lost her appetite due to Mounjaro currently at 15 mg weekly started in the last 2 years. She lost 80 pounds. She has constipation and takes docusate and senna. She notes rectal bleeding and large hard stools that sometimes clog the toilet. The patient has chronic constipation from Mounjaro which she states may have precipitated the appendicitis. Patient has past medical history of hypertension, low lupus, diabetes, obesity. 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 Jose Manuel present at bedside is a economic development director and instructor knitting. CT scan showed appendicitis without rupture. Dr. Cazares was consulted and plans appendectomy tomorrow. Hospital Course Hospital Course 1. Acute appendicitis: S/p laparoscopic appendectomy May discharge per Dr. Cazares Patient will discharge pending return of bowel function and pain control 2. SLE (systemic lupus erythematosus related syndrome): Patient takes azathioprine which is held. She also takes prednisone 5 mg daily as needed flare estimates that she took it for 14 days in the last 1 year. Consider stress dose steroids if hypotensive perioperatively 3. Obstructive sleep apnea: Monitor for sleep apnea and resume home CPAP if available 4. History of pulmonary embolism: Continue with DVT prophylaxis in the perioperative period 5. Diabetes: I have encouraged the patient to stop sweet tea. Goal weight loss 2 pounds a week on the Mounjaro and try to get to a BMI around 25 to resolve the diabetes. Will check A1c. Recommended caloric intake 1600 monet once she is taking solid food postoperatively 6. Hypotension: Given IV fluids with NS and Midodrine 5mg TID. Discharge: Discharges in stable condition in care of spouse. Patient hypotension with tachycardia, stated that oncology had concerns for POTS, referral for cardiology at discharge. Advanced diet to tolerated with return of bowel function. Discharge recommendations and limitation per general surgeon Dr. Cazares. Continue PRN pain medication and bowel regimen as prescribed. Recommended outpatient follow-up with PCP within 1-3 days, General surgeon in 2 weeks. All questions and concerns addressed at the bedside today. Physical Exam Narrative: General Well-developed obese female in no acute cardiopulmonary stress Oropharynx Mallampati 3 CV regular tachycardic rhythm and rate no loud murmur Lungs clear to auscultation except for trace basilar crackles or right lower lung Abdomen positive bowel tones soft laparoscopic incisions, clean dry and intact sealed no drainage noted Calves 1+ edema Skin skin warm and dry Mentation alert and orient x 3 good historian Discharge Data Studies Completed and Pending Completed Studies During Hospitalization Category Date Time Status CT abdomen pelvis w con* [id number] Stat Cat Scan 08/11/25 20:16 Completed Pending at discharge Category Date Time Status Basic Metabolic Panel AM LABS Lab 08/13/25 04:00 Ordered Basic Metabolic Panel AM LABS Lab 08/14/25 04:00 Ordered Basic Metabolic Panel AM LABS Lab 08/15/25 04:00 Ordered Complete Blood Count w/Auto AM LABS Lab 08/13/25 04:00 Ordered Hemoglobin A1C AM LABS Lab 08/13/25 04:00 Ordered Thyroid Stimulating Hormone AM LABS Lab 08/13/25 04:00 Ordered Pathology: Surgical [PTH] Routine Pth 08/12/25 09:20 Ordered Radiology Impressions Abdomen/Pelvis CT 08/11/25 20:16 IMPRESSION: Appendicitis. No perforation or abscess. ADDENDUM: 08/11/252204 Findings were discussed with MATT CHRISTIAN at 08/11/2025 10:04 PM VETERINARY MEDICINE SCIENTIST. Laboratory Results WBC 7.97 10^3/uL (3.29-11.43) 08/11/25 20:15 RBC 3.97 10^6/uL (3.85-5.65) 08/11/25 20:15 Hgb 13.40 g/dL (11.27-16.99) 08/11/25 20:15 Hct 38.4 % (36-47) 08/11/25 20:15 MCV 96.7 fl (85-98) 08/11/25 20:15 MCH 33.8 pg (27-33) H 08/11/25 20:15 MCHC 34.9 g/dL (30-55) 08/11/25 20:15 RDW 19.3 % (12.1-15.1) H 08/11/25 20:15 Plt Count 161 10^3/cmm (157-399) 08/11/25 20:15 MPV 9.0 fL (7.4-10.4) 08/11/25 20:15 Neut % (Auto) 76.9 % 08/11/25 20:15 Lymph % (Auto) 14.6 % 08/11/25 20:15 [place] % (Auto) 5.6 % 08/11/25 20:15 Eos % (Auto) 1.6 % 08/11/25 20:15 Baso % (Auto) 0.4 % 08/11/25 20:15 Neut # (Auto) 6.13 10^3/uL (1.8-7.7) 08/11/25 20:15 Lymph # (Auto) 1.2 10^3/uL (0.8-4.8) 08/11/25 20:15 [place] # (Auto) 0.5 10^3/uL (0.2-0.9) 08/11/25 20:15 Eos # (Auto) 0.1 10^3/uL (0.0-0.8) 08/11/25 20:15 Baso # (Auto) 0.0 10^3/uL (0.0-0.1) 08/11/25 20:15 Nucleated RBC % (auto) 0 % 08/11/25 20:15 Nucleated RBCs # 0.0 /100WBC 08/11/25 20:15 Sodium 138 mmol/L (136-145) 08/11/25 20:15 Potassium 3.9 mmol/L (3.5-5.1) 08/11/25 20:15 Chloride 99 mmol/L (98-107) 08/11/25 20:15 Carbon Dioxide 27 mmol/L (22-29) 08/11/25 20:15 Anion Gap 15.9 (5-19) 08/11/25 20:15 BUN 8 mg/dL (6-20) 08/11/25 20:15 Creatinine 0.7 mg/dL (0.5-0.9) 08/11/25 20:15 GFR Calculation 90.9 mL/min (90-130) 08/11/25 20:15 Glucose 101 mg/dL (65-115) 08/11/25 20:15 Calculated Osmolality 284 mOsm/kg (285-295) L 08/11/25 20:15 Calcium 9.3 mg/dL (8.5-10.5) 08/11/25 20:15 Phosphorus Cancelled 08/12/25 01:27 Magnesium Cancelled 08/12/25 01:27 Total Bilirubin 0.9 mg/dL (0.15-1.2) 08/11/25 20:15 AST 33 U/L (0-32) H 08/11/25 20:15 ALT 24 U/L (0-33) 08/11/25 20:15 Alkaline Phosphatase 60 U/L (35-105) 08/11/25 20:15 C-Reactive Protein 4.1 mg/L (0.0-4.9) 08/11/25 20:15 Total Protein 7.9 g/dL (6.6-8.7) 08/11/25 20:15 Albumin 4.5 g/dL (3.5-5.2) 08/11/25 20:15 Globulin 3.4 g/dL (1.3-4.6) 08/11/25 20:15 Lipase 35 U/L (13-60) 08/11/25 20:15 HCG, Qual Negative (Negative) 08/11/25 20: Urine Color Yellow (Yellow) 08/11/25 20:33 Urine Appearance Clear (CLEAR) 08/11/25 20: Urine pH 6.0 (5-7) 08/11/25 20: Ur Specific [place] 1.012 (1.005-1.030) 08/11/25 20: Urine Protein Negative (Negative) 08/11/25 20: Urine Glucose (UA) Negative (Normal) 08/11/25 20: Urine Ketones Trace (Negative) 08/11/25 20: Urine Blood Negative (Negative) 08/11/25 20: Urine Nitrate Negative (Negative) 08/11/25 20: Urine Bilirubin Negative (Negative) 08/11/25 20: Urine Urobilinogen 1.0 mg/dL (Negative) 08/11/25 20: Ur Leukocyte Esterase Negative (Negative) 08/11/25 20:33 Urine RBC 0-2 /hpf (0-2) 08/11/25 20:33 Urine WBC 0-5 /hpf (0-5) 08/11/25 20:33 Ur Squamous Epith Cells 0-5 /hpf (0-5) 08/11/25 20:33 Amorphous Sediment Not Reportable 08/11/25 20:33 Urine Bacteria None seen /hpf (NONE) 08/11/25 20:33 Hyaline Casts 0-4 /lpf H 08/11/25 20:33 Vitals Last Vital Signs Temp 100.3 F H 08/12/25 06:50 Pulse 122 H 08/12/25 06:50 Resp 20 H 08/12/25 06:50 BP 101/70 08/12/25 06:50 Pulse Ox 90 08/12/25 06:50 O2 Del Method Room Air 08/12/25 06:50 O2 Flow Rate 6 08/12/25 09:36 Discharge Plan Discharge Patient Disposition: Home Condition: Stable Prescriptions: New oxycodone 5 mg tablet 5 mg PO Q6H PRN (Reason: pain) 5 Days Qty: 10 0RF lactulose 10 gram/15 mL Solution 10 g PO DAILY PRN (Reason: Constipation (see protocol)) 7 Days Qty: 1200 0RF Continued omeprazole 40 mg capsule,delayed release(DR/EC) 40 mg PO QAM metoprolol tartrate 50 mg tablet 100 mg PO BID Patient Comments: May take an additional 50mg if heart rate above 100 bpm for more than 15 minutes and BP allows cyclobenzaprine 10 mg tablet 10 mg PO TID PRN (Reason: Spasms) duloxetine 60 mg capsule,delayed release(DR/EC) 60 mg PO DAILY spironolactone 50 mg tablet 50 mg PO DAILY azathioprine 50 mg tablet See Rx Instructions PO .COMPLEX Qty: 90 2RF Rx Instructions: Take 2 tablets in AM and 1 tablet in PM orally; acetaminophen [Tylenol Extra Strength] 500 mg Tablet 500 - 1,000 mg PO PRN hydroxyzine HCl 25 mg tablet 25 mg PO QID PRN (Reason: Anxiety) atorvastatin 40 mg Tablet 20 mg PO BEDTIME Qty: 30 0RF aspirin 81 mg Tablet,Delayed Release (Dr/Ec) 81 mg PO DAILY Qty: 30 0RF (DME) blood-glucose meter [Blood Glucose Monitoring] Kit See Rx Instructions .ROUTE .MEDSUPPLY Qty: 1 0RF Rx Instructions: As directed (DME) pen needle, diabetic [BD Ultra-Fine Micro Pen Needle] 32 gauge x 1/4 needle See Rx Instructions .ROUTE .MEDSUPPLY Qty: 50 0RF Rx Instructions: As directed (DME) lancets Misc See Rx Instructions .ROUTE .MEDSUPPLY Qty: 100 0RF Rx Instructions: As directed Held prednisone 5 mg tablet 5 mg PO DAILY PRN (Reason: flare) Qty: 60 0RF Hold Instructions: Resume on 08/19/25. Resume under the direction of PCP. Mounjaro 15 mg/0.5 mL pen injector 15 mg SUBCUT Q7D Hold Instructions: Resume on 08/26/25. Resume under the direction of PCP. Patient Services Coordinator OK for DC: Surgery Discharge Order = DC NOW: Discharge Order (Routine); Ordered 08/12/25 Ordered By: Jacqueline Carrillo Referrals: Gregory Cazares MD [Physician, General Surgery] - 08/23/25 10:15 am Colette Clark MD [Physician, Cardiology] - 10/19/25 3:15 pm Referral Note: Alvaro Reeves DO [Primary Care Provider, Family Practice] - 1-3 days Referral Note: We have notified your physician's clinic of the need for a follow-up appointment to be scheduled. If you have not heard from them within the next 2 business days, please call them directly. Discharge Diet: As Directed Discharge Activity: Limit activity as instructed Patient Instructions: Acute Wound Care (DC), Abdominal Pain (ED), Opioid Safety, Post Anesthesia Care, Patient Portal & Osmin Instructions Activity Restrictions/Additional Instructions: 1. No heavy exercise or lifting greater than 10lbs for 6 weeks. 2. No pools, saunas, bathtubs for 2 weeks. Ok to shower the day following surgery. Ok to remove any dressings you may have the day following surgery. 3. Do not drive if taking narcotics. 4. You may take over the counter tylenol 650mg every 6 hrs and ibuprofen 400mg every 6 hrs as needed for 5 days in addition to the oxycodone. 5. Follow-up in clinic in 2 weeks. 6. Call the office if you have any concerns or questions. Call the office if you experience worsening abdominal pain or fever (temperature greater than 101.5 Fahrenheit) Discharge Attestations Time Spent in Discharge Care*: greater than 30 min Status at Discharge: Cognitive status at discharge: cognitively intact, Behavioral status at discharge: cooperative, Quality Metrics Clinical Quality Measures [ No reported AMI, CVA or VTE this stay] Coding Level of Care Code 36698 Diagnoses Acute appendicitis K35.30 Acute appendicitis type: with localized peritonitis Appendicitis abscess presence: without abscess Appendicitis gangrene presence: without gangrene Appendicitis perforation presence: without perforation
[2025-08-13 07:39] VITALS: BP 97/61; PULSE 105; RESP 17; TEMP 36.8; O2SAT 96
--- NOTE | 2025-08-13 08:18 | PC.NURSE ---
late entry--- 08/12/2025 at 2100 Provider assessed patient at the bedside. MD aware of vital signs at this time. New order received. 1. Hold metoprolol/Dilaudid if SBP<110 2.Hold Midodrine if SBP>100, and pt is asymptomatic 3.Notify a provider if HR >140 4.Discontinue Zoysn IV, and decrease the LR from 150 to 100ml/hr
--- NOTE | 2025-08-13 09:19 | PC.NURSE ---
Discharge Note Patient discharged to home via private vehicle accompanied by . Discharge instructions reviewed with patient and/or career services representative. Mobile pharmacy medications and/or prescriptions provided. Belongings/home medications returned.
[2025-08-13 09:20] VITALS: BP 97/61; PULSE 105; RESP 17; TEMP 36.8; O2SAT 96
== END 2025-08-13 09:47 | disposition home or self-care (01) ==
LOC: ER 20:19 → MEDSURG 23:21
PROVIDERS: Student in an Organized Health Care Education/Training Program; Admitting Provider Internal Medicine; Emergency Provider Physician Assistant; PCP Electrodiagnostic Medicine; Visit Provider Registered Nurse
PROC: 0DTJ4ZZ Resection of Appendix, Percutaneous Endoscopic Approach (ICD-10-PCS; CPT 44970; principal; 2025-08-12 07:50)
DX: K35.80 Unspecified acute appendicitis (principal); Z79.82 Long term (current) use of aspirin; K21.9 Gastro-esophageal reflux disease without esophagitis; Z86.711 Personal history of pulmonary embolism; G47.33 Obstructive sleep apnea (adult) (pediatric); E11.9 Type 2 diabetes mellitus without complications; I95.9 Hypotension, unspecified; R00.0 Tachycardia, unspecified; F41.8 Other specified anxiety disorders; Z87.891 Personal history of nicotine dependence; I10 Essential (primary) hypertension; M32.9 Systemic lupus erythematosus, unspecified
CPT/HCPCS: 44970; 36415; 74177; 80053; 81001; 83690; 83735; 84100; 84703; 85025; 86140; 88304; 93005; 94664; 96361; 96365; 96372; 96375; 96376; 99285; A4216; G0378; J1100; J1171; J1644; J1885; J2250; J2270; J2405; J2543; J2704; J3010; J3480; J3490; J7120; J9999